=== PATIENT | male | born 1960 | race African-American/Black ===

== ENCOUNTER 2024-03-23 10:30 | Emergency (ER) | payer MEDICARE, MEDICAID, SELFPAY ==
[2024-03-23] VITALS (11 sets, daily range): BP systolic 88–122; BP diastolic 56–98; PULSE 86–118; RESP 15–24; TEMP 36.7; O2SAT 97–100
--- NOTE | ~2024-03-23 | CT_ITS ---
EXAMINATION: CT abdomen pelvis w con DATE: 03/23/2024 13:10 INDICATION: Right lower quadrant abdominal pain. Nausea and vomiting. TECHNIQUE: Computed tomography (CT) of the abdomen and pelvis was performed with 100 mL Omnipaque 350 intravenous contrast. Automated exposure control and iterative reconstruction technique were employe d. The dose-length product was 906.06 mGy-cm. COMPARISON: None. FINDINGS: The visualized portions of the lung bases demonstrate airspace and groundglass opacities. N o pleural effusion. The heart size is normal. No pericardial effusion. There is bilateral gynecomasti a. There is mild elevation of right hemidiaphragm. The liver, gallbladder, spleen, pancreas, and left adrenal gland are normal. There is a 2.2 cm mass in right adrenal gland measuring soft tissue attenu ation. There are cysts in the kidneys measuring up to 4.2 cm on the left. There is a right inguinal h ernia containing fat. There are brachytherapy seeds in the prostate, which is mildly enlarged. There are no dilated loops of bowel. The appendix is normal. There are no pathologically enlarged lymph nod es. There is a small sliding hiatal hernia. There is no free intraperitoneal fluid. There is severe t horacic spondylosis and moderate lumbar spondylosis. There is a 7 mm sclerotic lesion in left sacral ala. IMPRESSION: 1. Right inguinal hernia containing fat. 2. Airspace and groundglass opacities in the inferior lungs, consistent with atelectasis versus pneum onia. 3. 7 mm sclerotic lesion in left sacral ala, which may be benign or metastatic disease. This finding is too small for bone scan evaluation. Reviewed, dictated and finalized at location A. IMPRESSION: 1. Right inguinal hernia containing fat. 2. Airspace and groundglass opacities in the inferior lungs, consistent with at electasis versus pneumonia. 3. 7 mm sclerotic lesion in left sacral ala, which may be benign or metastatic disease. This finding is too small for bone scan evaluation.
--- NOTE | ~2024-03-23 | XR_ITS ---
EXAMINATION: XR chest 1V portable DATE: 03/23/2024 12:32 INDICATION: Nausea and vomiting. TECHNIQUE: A single frontal view of the chest was obtained. COMPARISON: None. FINDINGS: There is mild elevation of right hemidiaphragm. There is mild atelectasis in right lower terri ng zone. No pleural effusion or pneumothorax. The heart size is normal. IMPRESSION: 1. Mild elevation of right hemidiaphragm with mild atelectasis in right lower lung zone. Reviewed, dictated and finalized at location A. IMPRESSION: 1. Mild elevation of right hemidiaphragm with mild atelectasis in right lower l elena zone.
--- NOTE | 2024-03-23 11:01 | ED.NAVMDI ---
HPI - Nausea/Vomiting/Diarrhea General Chief complaint: Nausea/Vomiting/Diarrhea Stated complaint: n/v Time Seen by Provider: 03/23/24 10:32 Source: patient Mode of arrival: EMS Limitations: no limitations and language barrier History of Present Illness HPI Narrative: Patient is a 64-year-old male, with PMH of CVA with residual R sided deficits/aphasia, who presents to the ED via EMS with report of N/V. Patient is a resident of [facility]. He reports having persistent nausea and vomiting since night. He is able to keep down some fluids. Also complains of pain throughout his right lower abdomen. Denies diarrhea or constipation. Last bowel movement was today and normal. Denies rectal bleeding or melena. Denies fevers. Denies known sick contacts. Related Data Allergies Allergy/AdvReac Type Severity Reaction Status Date / Time lacosamide [From Vimpat] Allergy Unknown Verified 03/23/24 10:37 Review of Systems Review of Systems: CONSTITUTIONAL: Denies fever, chills, or sweats. CARDIOVASCULAR: Denies chest pain. RESPIRATORY: Denies dyspnea. GASTROINTESTINAL: See HPI. NEUROLOGIC: Denies headache, dizziness, numbness, or weakness. All systems reviewed & are unremarkable except as noted in HPI and below PMFSH Past Medical History Medical History (Updated 03/23/24 @ 19:05 by Brenda Jolly PA-C) CVA (cerebral vascular accident) Exam Narrative: GENERAL: chronically ill appearing, well-nourished, actively vomiting into emesis bag. HEAD: Normocephalic, atraumatic. RESPIRATORY: Airway patent, respirations nonlabored. Clear to auscultation bilaterally, no rales, rhonchi, wheezing. CARDIOVASCULAR: Tachycardic with regular rhythm without murmurs, rubs, or gallops. ABDOMINAL: Soft, mild tenderness in R lower abdomen, no rebound. Nondistended. Normoactive BS. MUSCULOSKELETAL: Right-sided weakness, chronic r/t previous CVA. No gross deformities. SKIN: Warm, dry, normal color. NEURO: A&O X3. Intermittent expressive aphasia. Follows commands. Cranial nerves II-XII grossly intact. PSYCHIATRIC: Appropriate mood and affect. Normal interaction. Course Vital Signs Vital signs: Vital Signs Temperature 98.0 F 03/23/24 10:28 Pulse Rate 109 H 03/23/24 10:28 Respiratory Rate 20 03/23/24 10:28 Blood Pressure 109/78 03/23/24 10:28 Pulse Oximetry 100 03/23/24 10:28 Oxygen Delivery Room Air 03/23/24 10:28 Temperature 98.0 F 03/23/24 10:28 Pulse Rate 95 03/23/24 15:16 Respiratory Rate 18 03/23/24 15:16 Blood Pressure 101/73 03/23/24 15:16 Pulse Oximetry 100 03/23/24 15:16 Oxygen Delivery Room Air 03/23/24 10:28 MDM - Nausea/Vomiting/Diarrhea MDM Narrative Medical decision making narrative: Patient presented to ED from local [facility] with several day hx of N/V. Per records, patient has hx of chronic N/V. New to facility. He was mildly tachycardic upon arrival. Actively vomiting. Fluids ongoing. Zofran given. Basic laboratory studies are fairly unremarkable. CBC with white blood cell count of 9.4. Minimal anemia noted at 11.3. No records to compare to. Patient denies any recent bleeding. No coffee-ground emesis. CMP w/ stable electrolytes. Creatinine 1.5. No records to compare to. Fluids ongoing. Lactic acid within normal limits at 1.5. Normal LFTs and lipase. Urinalysis with possible infection, 1+ leuk esterase, 21-50 white blood cells, though moderate squamous cells noted, no urine bacteria seen. Will send for cx and defer tx for now. Patient denies any urinary sx's. No previous cultures to compare to. Viral swabs were negative. Chest x-ray clear. CT scan of abdomen pelvis was obtained and showing inguinal hernia, no surgical abnormalities. Did show small sclerotic lesion in left sacrum, could be benign versus metastatic disease. No other metastatic findings on imaging. May need further imaging in the future. Discussed
[2024-03-23 11:11] LABS: Basophils Percent Auto 0.2 % (0.2-1.2); Eosinophils Absolute Auto 0.2 K/mm3 (0-0.3); Eosinophils Percent Auto 2.6 % (0-4.4); Hematocrit 38.8 % (42.0-52.0); Hemoglobin 11.3 g/dL (14.0-18.0); Immature Granulocyte Absolute 0.03 K/mm3 (0.00-0.031); Immature Granulocyte Percent A 0.3 % (0-0.5); Lymphocytes Absolute Auto 1.78 K/mm3 (0.9-3.2); Mean Corpuscular HGB Conc 29.1 g/dl (32-36); Mean Corpuscular Hemoglobin 21.9 pg (26-34); Mean Corpuscular Volume 75.3 fl (80-100); Mean Platelet Volume 11.9 fl (7.4-10.4); Monocytes Absolute Auto 0.6 K/mm3 (0.1-0.6); Monocytes Percent Auto 5.9 % (2.6-8.5); Neutrophils Absolute Auto 6.8 K/mm3 (1.3-6.7); Platelet Count Result 273 k/mm3 (150-375); Red Blood Count 5.15 M/mm3 (4.6-6.20); Red Cell Distribution Width 18.9 % (11.5-14.5); White Blood Count 9.4 K/mm3 (4.5-10.0)
[2024-03-23] MEDS: SODIUM CHLORIDE 0.9% IV 1,000 ML 999 ML IV CONT ×2 (11:24→12:35)
[2024-03-23] MEDS: ONDANSETRON INJ 4 MG/2 ML VIAL IV PUSH (11:24)
[2024-03-23 11:27] LABS: Lactic Acid Reflex 1.5 mmol/L (0.7-2.0)
[2024-03-23 11:30] LABS: Anisocytosis 1+; Hypochromasia 1+; Platelet Estimate Adequate (Adequate); Schistocytes None Seen
[2024-03-23 12:12] LABS: Appearance Urine Cloudy (Clear); Bacteria Urine None Seen /hpf; Bilirubin Urine 1+ (Negative); Blood Urine Negative (Negative); Color Urine Dark Yellow (Yellow); Glucose Urine UA Negative (Negative); Granular Casts Urine Present /lpf; Hyaline Casts Urine Present /lpf; Ketones Urine Trace mg/dL (Negative); Leukocyte Esterase Ur 1+ LEU/UL (Negative); Need Manual Microscopic Reviewed; Nitrate Urine Negative (Negative); Non Pathogenic Casts >20; Protein Urine 1+ mg/dL (Negative); RBC Urine 0-2 /hpf (0-2); Specific Grav Ur 1.022 (1.001-1.035); Squamous Epithelial Cell Urine Moderate /hpf (Few); WBC Urine 21-50 /hpf (0-3)
[2024-03-23 12:13] LABS: Add Urine Microscopic? YES
[2024-03-23 12:32] LABS: Influenza A QL RT-PCR Negative (Negative); Influenza B QL RT-PCR Negative (Negative); RSV RNA, RT-PCR Negative (Negative); SARS-CoV-2 RNA PCR Negative (Negative)
[2024-03-23 12:52] LABS: Alanine Aminotransferase 10 U/L (6-50); Albumin Level 3.6 g/dL (3.5-5.1); Alkaline Phosphatase 71 U/L (38-126); Anion Gap 9 mmol/L (4-12); Aspartate Amino Transferase 16 U/L (17-59); Bilirubin,Total 0.7 mg/dL (0.2-1.3); Blood Urea Nitrogen 39 mg/dL (9-20); Calcium 9.3 mg/dL (8.4-10.2); Carbon Dioxide 24 mmol/L (22-30); Chloride 110 mmol/L (98-107); Estimated CRCL calculation 41 ml/min; Estimated Glomerular Filt Rate 47; Glucose 110 mg/dL (65-110); Lipase 48 U/L (23-300); Potassium 3.7 mmol/L (3.4-5.0); Sodium 143 mmol/L (137-145)
== END 2024-03-23 15:39 ==
PROVIDERS: Emergency Provider Physician Assistant
DX: R11.2 Nausea with vomiting, unspecified (principal); I69.920 Aphasia following unspecified cerebrovascular disease; I69.951 Hemiplegia and hemiparesis following unspecified cerebrovascular disease affecting right dominant side; M89.9 Disorder of bone, unspecified; Z20.822 Contact with and (suspected) exposure to COVID-19; K40.90 Unilateral inguinal hernia, without obstruction or gangrene, not specified as recurrent; R91.8 Other nonspecific abnormal finding of lung field; R82.998 Other abnormal findings in urine
CPT/HCPCS: 36415; 71045; 74177; 80053; 81001; 83605; 83690; 85025; 87086; 87637; 96361; 96374; 99284; J2405; J7030; Q9967

== ENCOUNTER 2024-07-15 16:14 | Emergency (ER) | payer MEDICARE, MEDICAID, SELFPAY ==
--- NOTE | ~2024-07-15 | CT_ITS ---
CT cervical spine wo con Ordering provider: Clif Alfaro MD History: . Fall . Comparison: None. Technique: CT of the cervical spine was performed without contrast. Sagittal and coronal reformatted images were also obtained and reviewed. Automated exposure control and iterative reconstruction viri hnique were employed. The dose-length product was 407.87 mGy-cm. FINDINGS: VERTEBRAE: Kyphosis centered at the level of C5-C6. Minimal anterolisthesis at the level of C3-C4. Sm all bony fragment seen near to the left C1 lateral mass most likely old fracture or osteophyte. Evalu ation for tenderness in the area advised. Otherwise, No subluxation or acute fracture. The occipital condyles are intact. DISC SPACES: Narrowing of the disc C6-C7 and C7-T1. Multilevel facet joint disease. Multilevel uncove rtebral joint osteoarthritic changes. PARASPINOUS SOFT TISSUES: Bilateral carotid calcifications. Cerumen seen in the right and left external auditory canal. IMPRESSION: No definite acute osseous abnormality cervical spine. Kyphosis. Small chip of bone seen near to the C1 lateral mass on the left side most likely due to old fracture or osteophyte seen in the area. Clinical evaluation advised. Reviewed, dictated and finalized at location A. IMPRESSION: No definite acute osseous abnormality cervical spine. Kyphosis. Small chip of bone seen near to the C1 lateral mass on the left side most like ly due to old fracture or osteophyte seen in the area. Clinical evaluation advi sed.
--- NOTE | ~2024-07-15 | CT_ITS ---
EXAMINATION: CT brain wo con DATE: 07/15/2024 16:55 INDICATION: Fall . TECHNIQUE: Computed tomography (CT) of the head was performed with intravenous contrast. The mA was a djusted according to patient size. Iterative reconstruction technique was employed. The dose-length p roduct was 681.00 mGy-cm. COMPARISON: None. FINDINGS: No acute intracranial hemorrhage or extra-axial fluid collection. No hydrocephalus, mass, or herniation. No acute ischemic infarct. Unremarkable dural venous sinus attenuation. No acute osseous abnormality. Right frontotemporal craniotomy. Right frontal soft tissue swelling Right maxillary mucosal thickening, retention cyst/polyp in the left maxillary sinus, the remaining a erated spaces are clear. Bilateral frontal, left parietal, and left temporal encephalomalacia. Mild atrophy and chronic white matter change. Atherosclerotic intracranial calcification. IMPRESSION: No acute intracranial process. Reviewed, dictated and finalized at location K.
[2024-07-15 16:17] VITALS: BP 107/74; PULSE 68; RESP 18; TEMP 36.4; O2SAT 100
[2024-07-15 17:25] LABS: Glucose Point of Care 97 mg/dl (65-105)
--- NOTE | 2024-07-15 17:26 | ED.GENADULT ---
HPI - General Adult General Chief complaint: Fall Stated complaint: fall Time Seen by Provider: 07/15/24 16:19 History of Present Illness HPI narrative: 64-year-old male history of hemiparesis from right-sided CVA presenting after ground level fall. Patient was in his wheelchair and leaned over and fell striking his head on the ground. No loss of consciousness. No complaints at this time other than a headache. Patient is on aspirin. No persistent nausea or vomiting. Related Data Allergies Allergy/AdvReac Type Severity Reaction Status Date / Time lacosamide [From Vimpat] Allergy Unknown Verified 07/15/24 16:20 [facility] Past Medical History Medical History CVA (cerebral vascular accident) Exam Narrative: APPEARANCE: No apparent distress. Head: Hematoma over the right forehead EYES: EOMI, NOSE: Atraumatic NECK: No midline cervical tenderness, no neck pain RESPIRATORY: No increased rate of breathing clear to auscultation CARDIOVASCULAR: RRR, ABDOMINAL: Non-distended MUSCULOSKELETAl: No obvious deformities NEURO: Alert. Flaccid paralysis of the right arm leg and face. Left-sided neurologic exam is normal. PSYCHIATRIC: Normal affect Course Vital Signs Vital signs: Vital Signs Temperature 97.6 F 07/15/24 16:17 Pulse Rate 68 07/15/24 16:17 Respiratory Rate 18 07/15/24 16:17 Blood Pressure 107/74 07/15/24 16:17 Pulse Oximetry 100 07/15/24 16:17 Oxygen Delivery Room Air 07/15/24 16:17 Temperature 97.6 F 07/15/24 16:17 Pulse Rate 68 07/15/24 16:17 Respiratory Rate 18 07/15/24 16:17 Blood Pressure 107/74 07/15/24 16:17 Pulse Oximetry 100 07/15/24 16:17 Oxygen Delivery Room Air 07/15/24 16:17 Medical Decision Making [facility] Narrative Medical decision making narrative: -Course: This is a 64-year-old male [facility] after ground level fall. CT head negative. CT spine showed a possible loose body to the side of C1. Patient does not have any pain in that location. Patient's neurologic exam is unchanged with his chronic right-sided hemiparesis. Patient be discharged back to the nursing. -DDX includes but is not limited to: Intracranial hemorrhage, concussion, soft tissue injury -Co-morbidities complicating care: CVA with right-sided hemiparesis -Shared decision making / Disposition:discharged Vital Signs Vital Signs: Vital Signs Temperature 97.6 F 07/15/24 16:17 Pulse Rate 68 07/15/24 16:17 Respiratory Rate 18 07/15/24 16:17 Blood Pressure 107/74 07/15/24 16:17 Pulse Oximetry 100 07/15/24 16:17 Oxygen Delivery Room Air 07/15/24 16:17 Temperature 97.6 F 07/15/24 16:17 Pulse Rate 68 07/15/24 16:17 Respiratory Rate 18 07/15/24 16:17 Blood Pressure 107/74 07/15/24 16:17 Pulse Oximetry 100 07/15/24 16:17 Oxygen Delivery Room Air 07/15/24 16:17 Lab Data Labs: Lab Results 07/15/24 Range/Units 17:23 POC Capillary Glucose 97 (65-105) mg/dl Discharge Plan Discharge Clinical Impression: Fall Patient Disposition: Home, Self-Care Condition: Stable Instructions: Antibiotic Form, Concussion (ED), Fall Prevention (ED) Additional Instructions: Please follow-up with your primary care physician as needed. Please practice fall prevention techniques. Prescriptions: No Action omeprazole 10 mg capsule,delayed release(DR/EC) 10 mg PO DAILY Qty: 30 0RF ondansetron 4 mg tablet,disintegrating 4 mg PO Q8H PRN (Reason: nausea and vomiting) Qty: 15 0RF Follow-up/Referrals: UNKNOWN,DOCTOR [Primary Care Provider] -
--- NOTE | 2024-07-15 18:52 | PC.NURSE ---
Attempted to call report to [facility] with no answer to call.
[2024-07-15 18:55] VITALS: BP 102/70; PULSE 92; RESP 16; TEMP 36.3; O2SAT 99
== END 2024-07-15 20:25 | disposition home or self-care (01) ==
PROVIDERS: Emergency Provider Emergency Medicine
DX: S00.83XA Contusion of other part of head, initial encounter (principal); I69.951 Hemiplegia and hemiparesis following unspecified cerebrovascular disease affecting right dominant side; M40.202 Unspecified kyphosis, cervical region; W05.0XXA Fall from non-moving wheelchair, initial encounter
CPT/HCPCS: 70450; 72125; 82948; 99284

== ENCOUNTER 2024-07-27 13:34 | Outpatient (CLI) | payer MEDICARE, MEDICAID, SELFPAY ==
--- NOTE | ~2024-07-27 | XR_ITS ---
EXAMINATION: XR barium swallow modified DATE: 07/27/2024 14:59 INDICATION: Complication from a stroke. TECHNIQUE: The patient was given barium-containing material of multiple consistencies to swallow by t [facility] speech pathologist while I performed fluoroscopy. Fluoroscopy exposure time was 1.1 minutes. The n umber of fluoroscopy images saved to the PACS was 1. Dose-area product was 1.7 Gy-cm^2. FINDINGS: The oral stage, oropharyngeal stage, and cervical/esophageal stage of the swallow are normal. IMPRESSION: 1. Normal modified barium swallow. 2. Please refer to the speech therapy report for recommendations. Reviewed, dictated and finalized at location A.
--- NOTE | 2024-07-28 08:25 | REHSTMBS ---
Assessment and note entered by Sugar Kumar, FURNITURE BUILDER Modified Barium Swallow Evaluation Feeding Type Recommended Oral Food Consistency Regular, Level 7 Liquid Consistency Thin (0) ST Clinical Summary MODIFIED BARIUM SWALLOW STUDY Patient reports he has no difficulty swallowing but that he has a feeling that he is going to throw up when he eats. Other history is not obtained. Patient was viewed in the lateral position to the level of C5/C6. He was presented with thin liquid contrast medium per spoon, per cup, and per straw, pudding mixed with semi-solid contrast medium, and cracker pieces and fruit cocktail pieces both coated with the semi-solid mixture. He exhibited quick swallows with no evidence of penetration into the airway or aspiration throughout this evaluation and no significant pharyngeal residue. Results suggest patient's swallowing skills are within normal limits. He may remain on Regular Diet consistency and Thin liquids or diet may be adjusted to what is comfortable for him. Recommend general safe swallowing techniques including upright positioning, small bites and sips, swallow what is in the mouth before taking in more. He may require referral to further assess his risk for vomiting. No further Speech Therapy is indicated at this time. Thank you for this referral.
== END 2024-07-27 13:35 | disposition home or self-care (01) ==
LOC: ANHIMG 13:38
PROVIDERS: Visit Provider Nurse Practitioner Family
DX: G93.6 Cerebral edema (principal); I50.22 Chronic systolic (congestive) heart failure; F44.9 Dissociative and conversion disorder, unspecified; I10 Essential (primary) hypertension; E78.5 Hyperlipidemia, unspecified; I89.0 Lymphedema, not elsewhere classified; C61 Malignant neoplasm of prostate; F20.9 Schizophrenia, unspecified; E11.9 Type 2 diabetes mellitus without complications; I69.851 Hemiplegia and hemiparesis following other cerebrovascular disease affecting right dominant side; I67.9 Cerebrovascular disease, unspecified; F41.1 Generalized anxiety disorder
CPT/HCPCS: 92611

== ENCOUNTER 2024-08-08 16:34 | Emergency (ER) | payer MEDICARE, MEDICAID, SELFPAY ==
--- NOTE | ~2024-08-08 | CT_ITS ---
CT brain wo con Ordering provider: Gilbert Link MD History: 64 years Male with . Head injury . Comparison: July 15, 2024 Technique: CT of the head without contrast. Radiation reduction technique utilized. The dose-length product was 605.33 mGy-cm. FINDINGS: BRAIN PARENCHYMA AND CSF SPACES: Mild leukoaraiosis and diffuse cortical atrophy. Mild atheromatous d isease. Encephalomalacia versus vasogenic edema is seen in the frontal lobes most likely postoperativ e. Old infarct in the left internal capsule is noted. Old infarct in the left parietal area. No midli ne shift, mass effect or hemorrhage. The brain parenchyma and CSF spaces are otherwise normal. VISUALIZED PARANASAL SINUSES: Left maxillary sinus disease. MASTOIDS: Well aerated. BONES: Postoperative changes in the right frontal bone. The bones appear intact. SOFT TISSUES: Visualized nasopharynx is normal. Scalp hematoma in the right frontal lobe area. Super ficial soft tissues are normal. IMPRESSION: No acute intracranial findings. Right frontal postoperative changes. Reviewed, dictated and finalized at location A.
[2024-08-08 16:35] VITALS: BP 109/83; PULSE 83; RESP 18; TEMP 37.1; O2SAT 100
--- NOTE | 2024-08-08 18:34 | ED.FALL ---
HPI - Fall General Chief Complaint: Fall Stated Complaint: Fall, Head Injury Time Seen by Provider: 08/08/24 16:49 History of Present Illness HPI Narrative: 64-year-old male presenting to the emergency department for evaluation after having a fall from his wheelchair. Patient does have a prior history of his CVA resulting in right-sided deficit. Patient states he does not ambulate. Patient states he fell forward from his chair is unsure if he strike his head to the unsure review had a loss conscious. Patient denies any other pain or injury. Related Data Allergies Allergy/AdvReac Type Severity Reaction Status Date / Time lacosamide [From Vimpat] Allergy Unknown Verified 07/23/24 09:08 Review of Systems Review of Systems: All systems reviewed & are unremarkable except as noted in HPI and below PMFSH Past Medical History Medical History CVA (cerebral vascular accident) Exam Narrative: APPEARANCE: Well appearing, no pain, no distress, well-nourished. HEAD: normocephalic, atraumatic. EYES: PERRLA/EOMI, conjunctivae clear. NOSE: Normal no drainage EARS:TMS clear with good light reflex. THROAT: Pharynx clear, no exudate. NECK: Supple. No adenopathy, no masses. RESPIRATORY: Airway patent, respirations nonlabored. Clear to auscultation bilaterally, no rales, rhonchi, wheezing. CARDIOVASCULAR: Regular rate and rhythm without murmurs rubs or gallops. ABDOMINAL: Soft, nontender, nondistended, normal bowel sounds MUSCULOSKELETAL: Moves all extremities. Strength/ROM intact, No edema, No calf tenderness. NEURO: Right-sided deficit SKIN: Warm, dry. Normal Color Course Vital Signs Vital signs: Vital Signs Temperature 98.8 F 08/08/24 16:35 Pulse Rate 83 08/08/24 16:35 Respiratory Rate 18 08/08/24 16:35 Blood Pressure 109/83 08/08/24 16:35 Pulse Oximetry 100 08/08/24 16:35 Oxygen Delivery Room Air 08/08/24 16:35 Temperature 98.8 F 08/08/24 16:35 Pulse Rate 83 08/08/24 16:35 Respiratory Rate 18 08/08/24 16:35 Blood Pressure 109/83 08/08/24 16:35 Pulse Oximetry 100 08/08/24 16:35 Oxygen Delivery Room Air 08/08/24 16:35 MDM - Fall MDM Narrative Medical decision making narrative: 64-year-old male presenting to the emergency department for evaluation after having a fall from his wheelchair. Head CT was negative for acute fracture dislocation. Patient has no further pain or complaints. Patient is being discharged back to his care facility. Differential Diagnosis Differential diagnosis: Likely syncope, concussion with loss of consciousness and concussion without loss of consciousness Imaging Data Radiologist's impression: Impressions Head CT 08/08/24 18:22 IMPRESSION: No acute intracranial findings. Right frontal postoperative changes. Discharge Plan Discharge Clinical Impression: Head injury Patient Disposition: NH Care Home/Asst Living Condition: Stable Instructions: Antibiotic Form, Head Injury (ED) Additional Instructions: Have close follow-up with primary care physician. Prescriptions: No Action omeprazole 10 mg capsule,delayed release(DR/EC) 10 mg PO DAILY Qty: 30 0RF ondansetron 4 mg tablet,disintegrating 4 mg PO Q8H PRN (Reason: nausea and vomiting) Qty: 15 0RF Follow-up/Referrals: PHYSICIAN,REST ROOM ATTENDANT [Primary Care Provider] -
[2024-08-08 18:54] VITALS: BP 119/84; PULSE 70; RESP 19; O2SAT 100
== END 2024-08-08 19:10 ==
PROVIDERS: Emergency Provider Emergency Medicine
DX: S09.90XA Unspecified injury of head, initial encounter (principal); I69.951 Hemiplegia and hemiparesis following unspecified cerebrovascular disease affecting right dominant side; W05.0XXA Fall from non-moving wheelchair, initial encounter
CPT/HCPCS: 70450; 99284

== ENCOUNTER 2024-08-13 16:09 | Emergency (ER) | payer MEDICARE, MEDICAID, SELFPAY ==
[2024-08-13] VITALS (8 sets, daily range): BP systolic 112–128; BP diastolic 82–93; PULSE 72–84; RESP 15–20; TEMP 36.3; O2SAT 96–100
--- NOTE | ~2024-08-13 | XR_ITS ---
XR hand RT min 3V Ordering provider: Philip Estrada MD History: . injury. smashed 2nd 3rd fingers in wheelchair . Comparison: None. FINDINGS: BONES: No acute fracture or dislocation. JOINT SPACES: Osteoarthritic changes of the proximal and distal interphalangeal joints. SOFT TISSUES: Normal. IMPRESSION: No acute osseous abnormality right hand. Reviewed, dictated and finalized at location A.
--- NOTE | 2024-08-13 16:59 | ED.GENADULT ---
HPI - General Adult General Chief complaint: Unspecified Stated complaint: HAND INJURY Time Seen by Provider: 08/13/24 16:37 Source: patient Mode of arrival: EMS Limitations: no limitations History of Present Illness HPI narrative: 64-year-old with a history of CVA, wheelchair bound was brought in from care home with the complaints of injury to his right hand. Patient states that his fingers got caught in the wheel of the wheelchair. Complains of pain and swelling. Location: upper extremity (Right hand) Severity: moderate Quality: aching Exacerbating factors: none Associated symptoms: denies other symptoms Related Data Allergies Allergy/AdvReac Type Severity Reaction Status Date / Time lacosamide [From Vimpat] Allergy Unknown Verified 07/23/24 09:08 Review of Systems Review of Systems: All systems reviewed & are unremarkable except as noted in HPI and below Constitutional: Constitutional: Reports no additional constitutional complaints Eyes: Eyes: Reports no additional eye complaints ENT: Reports system reviewed and no additional complaints, except as documented Cardiovascular: Cardiovascular: Reports no additional cardiovascular complaints Respiratory: Respiratory: Reports no additional respiratory complaints Musculoskeletal: Musculoskeletal: Reports as per HPI PMFSH Past Medical History Medical History CVA (cerebral vascular accident) Exam Narrative: GENERAL: Well-appearing, well-nourished, and in no acute distress. HEAD: Normocephalic, atraumatic. EYES: PERRLA and EOMI. ENT: Nares clear, NECK: Supple. CHEST: Clear to auscultation. No respiratory distress. HEART: Regular rate and rhythm. No murmur heard. Normal peripheral pulses. EXTREMITIES: Normal range of motion. right hand 3 ,4 th finger swelling , no open wounds SKIN: Warm, dry, no rash. NEURO: old CVA on the the right . PSYCH: Normal mood and affect. Course Vital Signs Vital signs: Vital Signs Temperature 36.3 C L 08/13/24 16:11 Pulse Rate 74 08/13/24 16:11 Respiratory Rate 20 08/13/24 16:11 Blood Pressure 128/93 H 08/13/24 16:11 Pulse Oximetry 98 08/13/24 16:11 Oxygen Delivery Room Air 08/13/24 16:11 Temperature 36.3 C L 08/13/24 16:11 Pulse Rate 74 08/13/24 16:11 Respiratory Rate 20 08/13/24 16:11 Blood Pressure 128/93 H 08/13/24 16:11 Pulse Oximetry 98 08/13/24 16:11 Oxygen Delivery Room Air 08/13/24 16:11 Medical Decision Making Differential Diagnosis Differential Diagnosis: Fractures, dislocation Vital Signs Vital Signs: Vital Signs Temperature 36.3 C L 08/13/24 16:11 Pulse Rate 74 08/13/24 16:11 Respiratory Rate 20 08/13/24 16:11 Blood Pressure 128/93 H 08/13/24 16:11 Pulse Oximetry 98 08/13/24 16:11 Oxygen Delivery Room Air 08/13/24 16:11 Temperature 36.3 C L 08/13/24 16:11 Pulse Rate 74 08/13/24 16:11 Respiratory Rate 20 08/13/24 16:11 Blood Pressure 128/93 H 08/13/24 16:11 Pulse Oximetry 98 08/13/24 16:11 Oxygen Delivery Room Air 08/13/24 16:11 Imaging Data Radiologist's impression: ITS Impressions Hand X-Ray 08/13/24 17:16 IMPRESSION: No acute osseous abnormality right hand. Discharge Plan Discharge Clinical Impression: Contusion of finger of right hand Qualifiers: Encounter type: initial encounter Finger: middle finger Damage to nail status: without damage Qualified Code(s): S60.031A - Contusion of right middle finger without damage to nail, initial encounter Patient Disposition: [facility]/Asst Living Condition: Stable Instructions: Contusion in Adults (ED) Prescriptions: No Action omeprazole 10 mg capsule,delayed release(DR/EC) 10 mg PO DAILY Qty: 30 0RF ondansetron 4 mg tablet,disintegrating 4 mg PO Q8H PRN (Reason: nausea and vomiting) Qty: 15 0RF Follow-up/Referrals: PHYSICIAN,AUTOMOBILE OR TRUCK RENTAL DISPATCHER [Non-Staff] - Jake Berger MD [Physician] - Time of Disposition: 18:03
== END 2024-08-13 19:22 ==
PROVIDERS: Emergency Provider Family Medicine
DX: S60.031A Contusion of right middle finger without damage to nail, initial encounter (principal); Z86.73 Personal history of transient ischemic attack (TIA), and cerebral infarction without residual deficits; Z99.3 Dependence on wheelchair; W23.0XXA Caught, crushed, jammed, or pinched between moving objects, initial encounter
CPT/HCPCS: 73130; 99283

== ENCOUNTER 2025-01-06 17:36 | Inpatient (IN) | payer MEDICARE, MEDICAID, SELFPAY ==
--- NOTE | ~2025-01-06 | XR_ITS ---
EXAMINATION: XR catheter cholangiogram DATE: 01/11/2025 14:50 INDICATION: Acute cholecystitis. TECHNIQUE: I injected water-soluble contrast into the cholecystostomy tube and performed fluoroscopy of the abdomen. The fluoroscopy exposure time was 0.2 minutes. The number of images was 5. COMPARISON: CT abdomen and pelvis 01/06/2025 FINDINGS: The cholecystostomy tube is in expected position in the gallbladder. The cystic duct is occ luded. IMPRESSION: 1. Cholecystostomy tube in expected position in the gallbladder. 2. Occluded cystic duct. Reviewed, dictated and finalized at location A.
--- NOTE | ~2025-01-06 | US_ITS ---
EXAMINATION: US perc cholecystostomy w imag DATE: 01/07/2025 17:55 INDICATION: Acute cholecystitis TECHNIQUE: The procedure including the risks and benefits was discussed with the patient. Risks discu ssed included bleeding including hemorrhage and bile peritonitis. Oral and written consent were obtai zayra. The patient was confirmed to be receiving appropriate antibiotic coverage. The skin overlying t he liver and gallbladder was prepped and draped in usual sterile fashion. Anesthetic was administere d with 1% lidocaine subcutaneously. Conscious sedation was provided by the anesthesiology service. A n 18-gauge trochar needle was advanced into the gallbladder fundus via an intercostal, transhepatic a pproach utilizing continuous ultrasound guidance. The inner stylette was removed and a J-wire was adv anced into the gallbladder fundus with position confirmed by ultrasound. Utilizing Seldinger techniqu e the needle was removed and the wire and the tract serially dilated to [address] was then advanced over the wire into the gallbladder lumen with position confirmed by ultrasound. The metal stiffener was removed, the pigtail tip formed and locked and the wire removed. Bile was as pirated and sent for culture. The catheter was stitched to the skin with suture. And antibiotic appoi ntment and a sterile dressing were applied. There were no immediate complications. FINDINGS: The gallbladder is dilated with wall thickening and stones and sludge, consistent with acut e cholecystitis. Real-time ultrasound demonstrated the catheter within the gallbladder. 60 mL of ronald mar brown bile was aspirated with 20 mL sent to the lab for Gram stain and cultures. The catheter wa s attached to gravity drainage. Final images demonstrate gallbladder decompressed around the catheter with a residual anechoic fluid collection in the region of the gallbladder fundus which likely repre sents the extraluminal collection of fluid as seen on the prior CT and ultrasound imaging. IMPRESSION: 1. Successful ultrasound-guided cholecystostomy tube placement. 2. 20 mL bile was sent for aerobic, anaerobic, and fungal cultures. 3. The catheter will be managed by Dr. Rivera. A catheter cholangiogram may be performed not less than 48 hours after tube placement if clinically indicated to assess cystic duct patency. If cholecystect ghulam is not eventually performed and the infectious episode has resolved, the tube may be removed over a guidewire, preferably not less than 3 weeks after placement to allow time for a mature catheter tr act to form to prevent bile leakage and peritonitis. Reviewed, dictated and finalized at location A. IMPRESSION: 1. Successful ultrasound-guided cholecystostomy tube placement. 2. 20 mL bile was sent for aerobic, anaerobic, and fungal cultures. 3. The catheter will be managed by Dr. Rivera. A catheter cholangiogram may be pe rformed not less than 48 hours after tube placement if clinically indicated to assess cystic duct patency. If cholecystectomy is not eventually performed and the infectious episode has resolved, the tube may be removed over a guidewire, preferably not less than 3 weeks after placement to allow time for a mature ca theter tract to form to prevent bile leakage and peritonitis.
--- NOTE | ~2025-01-06 | CT_ITS ---
CLINICAL INDICATION: Generalized abdominal pain COMPARISON: 03/23/2024. TECHNIQUE: Multiple contiguous axial images of the abdomen and pelvis were performed following the ad ministration of with 100 mL Omnipaque-350 intravenous contrast The dose-length product (DLP) was 781.68 mGy-cm. Automated exposure control and iterative reconstruction technique were employed. FINDINGS/OBSERVATIONS: Visualized lower thorax: Bibasilar consolidation, right greater than left. The heart is enlarged, without pericardial effusion. Small hiatal hernia is present. Liver: The liver demonstrates homogeneous enhancement and is not enlarged measuring 18 cm in longitudinal di mension. Gallbladder and biliary system: The gallbladder is distended, with mural thickening and surrounding inflammatory change.. Pancreas: The pancreas enhances homogeneously without ductal dilatation. Spleen: The spleen enhances homogeneously and is not enlarged measuring 8 cm in longitudinal dimension. Kidneys: Multiple foci of fluid attenuation within the bilateral kidneys, left greater than right, unchanged f rom previous examination and statistically representing cysts. No hydronephrosis or renal calculi are present. Adrenal glands: Global enlargement of the bilateral adrenal glands, right greater than left. Gastrointestinal tract: Significant fecal stasis within the colon. Mural thickening within the distal stomach and first portion of the duodenum, likely reactive. Fecal stasis distends the rectum mural thickening and presacral inflammation. Vasculature: The inferior vena cava is slit like, consistent with significant hypovolemia. Calcified atherosclerotic disease within the abdominal aorta. Lymph nodes: No pathologically enlarged or morphologically suspicious lymph nodes within the retroperitoneum or at the root of the mesentery. Pelvic structures: The bladder is only minimally distended with markedly thickened huizar and surrounding inflammatory ch abi. Brachy therapy seeds within the prostate gland. Body wall and musculoskeletal: Fat-containing right inguinal hernia.. Sacralization of L5. Grade 1 anterolisthesis of L4 onto L5. Otherwise, no significant degenerative disease within the lumbosacral spine. IMPRESSION: Findings consistent with acute cholecystitis, as detailed above. Significant fecal stasis is also detected, markedly distending the rectum with mural thickening and p resacral inflammation. Bibasilar consolidation is also noted, right greater than left. Reviewed, dictated and finalized at location A. IMPRESSION: Findings consistent with acute cholecystitis, as detailed above. Significant fecal stasis is also detected, markedly distending the rectum with mural thickening and presacral inflammation. Bibasilar consolidation is also noted, right greater than left.
--- NOTE | ~2025-01-06 | XR_ITS ---
CHEST RADIOGRAPH CLINICAL HISTORY: WEAKNESS . COMPARISON: 03/23/2024 TECHNIQUE: Single portable view of the chest. FINDINGS The cardiomediastinal silhouette is obscured. Low lung volumes are detected bilaterally. Increased interstitial markings are identified bilaterally, findings suggesting mild pulmonary vascul ar congestion. IMPRESSION: Mild pulmonary vascular congestion without focal infiltrate Reviewed, dictated and finalized at location A.
--- NOTE | ~2025-01-06 | US_ITS ---
EXAM: ABDOMEN ULTRASOUND HISTORY: Acute cholecystitis on cross sectional imaging performed 90 minutes earlier. COMPARISON: CT examination of the abdomen and pelvis performed at 90 minutes earlier. FINDINGS: LIVER: The liver is increased in echogenicity and unremarkable in size measuring 18 cm in longitudina l dimension. GALLBLADDER: Lobulated sludge is identified within the distended gallbladder, consistent with the ye earance described on recent CT examination. Pericholecystic fluid is also present along with gallblad martine wall thickening measuring almost 4 mm. BILE DUCTS: Common bile duct measures 3.8mm. PANCREAS: Limited evaluation of the pancreas secondary to overlying bowel gas IMPRESSION: Acute cholecystitis, as detailed above, consistent with previous imaging performed through 90 minutes earlier. Reviewed, dictated and finalized at location A. IMPRESSION: Acute cholecystitis, as detailed above, consistent with previous imaging perfor med through 90 minutes earlier.
[2025-01-06 18:00] VITALS: BP 131/90; PULSE 99; RESP 16; TEMP 37.1; O2SAT 100
--- NOTE | 2025-01-06 18:30 | ECG_ITS ---
Test Date: 2025-01-06 19:10:40 Measurements Intervals Hooks Rate: 86 P: 33 IN: 152 QRS: 3 QRSD: 94 T: -79 QT: 350 QTc: 419 Interpretive Statements SINUS RHYTHM POSSIBLE INFERIOR MYOCARDIAL INFARCTION , OF INDETERMINATE AGE [30 ms Q WAVE IN II/aVF] MODERATE T-WAVE ABNORMALITY, CONSIDER LATERAL ISCHEMIA [-0.1+ mV T WAVE IN I/aVL/V5/V6] No previous ECG available for comparison Electronically Signed On 01-07-2025 09:17:54 CDT by Freddy Coffey M.D.
[2025-01-06 19:13] LABS: Influenza A QL RT-PCR Negative (Negative); Influenza B QL RT-PCR Negative (Negative); RSV RNA, RT-PCR Negative (Negative); SARS-CoV-2 RNA PCR Negative (Negative)
[2025-01-06 19:14] LABS: Basophils Percent Auto 0.2 % (0.2-1.2); Eosinophils Percent Auto 0.1 % (0-4.4); Hematocrit 49.1 % (42.0-52.0); Hemoglobin 14.5 g/dL (14.0-18.0); Immature Granulocyte Absolute 0.08 K/mm3 (0.00-0.031); Immature Granulocyte Percent A 0.5 % (0-0.5); Lymphocytes Absolute Auto 1.06 K/mm3 (0.9-3.2); Lymphocytes Percent Auto 7.1 % (18.3-44.2); Mean Corpuscular HGB Conc 29.5 g/dl (32-36); Mean Corpuscular Hemoglobin 21.9 pg (26-34); Mean Corpuscular Volume 74.3 fl (80-100); Mean Platelet Volume 10.8 fl (7.4-10.4); Monocytes Absolute Auto 1.5 K/mm3 (0.1-0.6); Monocytes Percent Auto 9.7 % (2.6-8.5); Neutrophils Absolute Auto 12.3 K/mm3 (1.3-6.7); Neutrophils Percent Auto 82.4 % (45.5-73.1); Platelet Count Result 143 k/mm3 (150-375); Red Blood Count 6.61 M/mm3 (4.6-6.20); Red Cell Distribution Width 18.8 % (11.5-14.5)
[2025-01-06 19:48] LABS: Band Neutrophils Percent 0 % (0-6); Platelet Estimate Slightly Decreased (Adequate); Schistocytes None Seen
[2025-01-06 19:49] LABS: Microcytosis 1+ (NORMAL)
--- NOTE | 2025-01-06 19:49 | ED.GENADULT ---
HPI - General Adult General Chief complaint: Weakness Stated complaint: weakness Time Seen by Provider: 01/06/25 19:08 History of Present Illness HPI narrative: A 64-year-old woman presents emergency department with chief complaint of abdominal pain patient [facility] after he has been having increasing weakness the patient reports that he is having discomfort throughout his abdomen facility reports he has been little bit more than normal in been weaker than normal patient reports that he has discomfort around his umbilicus Related Data Home Medications ?Medication ?Instructions ?Recorded ?Confirmed ?Last Taken ?Type B-complex with vitamin C 1 tablet PO DAILY 09/29/24 Unknown History acetaminophen 500 mg capsule 500 mg PO Q6H PRN 09/29/24 Unknown History amino acids-protein hydrolysate 15 ea PO 09/29/24 Unknown History gram-100 kcal/30 mL oral liquid (Pro-Stat Sugar Free) aspirin 81 mg tablet,delayed 81 mg PO DAILY 09/29/24 Unknown History release cholecalciferol (vitamin D3) 25 25 mcg PO DAILY 09/29/24 Unknown History mcg (1,000 unit) capsule docusate sodium 100 mg capsule 100 mg PO DAILY 09/29/24 Unknown History famotidine 20 mg tablet 20 mg PO DAILY 09/29/24 Unknown History ferrous sulfate 325 mg (65 mg 325 mg PO DAILY 09/29/24 Unknown History iron) tablet fluoxetine 20 mg capsule 20 mg PO DAILY 09/29/24 Unknown History fluvoxamine 50 mg tablet 50 mg PO QHS 09/29/24 Unknown History furosemide 20 mg tablet 20 mg PO QAM 09/29/24 Unknown History insulin glargine 100 unit/mL 10 unit subcut QPM 09/29/24 Unknown History subcutaneous solution levetiracetam 1,000 mg tablet 1,000 mg PO Q12H 09/29/24 Unknown History lorazepam 0.5 mg tablet 0.5 mg PO TID PRN 09/29/24 Unknown History naltrexone 50 mg tablet 50 mg PO DAILY 09/29/24 Unknown History rosuvastatin 10 mg tablet 10 mg PO DAILY 09/29/24 Unknown History sennosides 8.6 mg capsule (senna) 8.6 mg PO BID 09/29/24 Unknown History spironolactone 25 mg tablet 25 mg PO DAILY 09/29/24 Unknown History tamsulosin 0.4 mg capsule 0.4 mg PO DAILY 09/29/24 Unknown History Allergies Allergy/AdvReac Type Severity Reaction Status Date / Time lacosamide (From Vimpat) Allergy Unknown Verified 09/29/24 13:51 Review of Systems Review of Systems: A 10 system review of systems was completed on the patient and is negative except for what is stated in the HPI. Nursing and ancillary documentation was reviewed. [facility] Past Medical History Medical History CVA (cerebral vascular accident) Social History Social History Smoking status: Unknown if ever smoked Alcohol intake: never Substance use: never Substance use type: does not use Exam Narrative: GENERAL: Well-appearing, well-nourished, and in no acute distress. HEAD: Normocephalic, atraumatic. EYES: PERRLA and EOMI. ENT: Nares clear, no rhinorrhea or epistaxis. Mucous membranes moist. NECK: Supple. CHEST: Clear to auscultation. No respiratory distress. HEART: Regular rate and rhythm. No murmur heard. Normal peripheral pulses. ABDOMEN: Soft, mild periumbilical tenderness, nondistended, normal active bowel sounds. EXTREMITIES: Normal range of motion. No edema. SKIN: Warm, dry, no rash. NEURO: No focal deficits. Alert and oriented x3. PSYCH: Normal mood and affect. Course Vital Signs Vital signs: Vital Signs Temperature 37.1 C 01/06/25 18:00 Pulse Rate 99 01/06/25 18:00 Respiratory Rate 16 01/06/25 18:00 Blood Pressure 131/90 01/06/25 18:00 Pulse Oximetry 100 01/06/25 18:00 Oxygen Delivery Room Air 01/06/25 18:00 Temperature 37.1 C 01/06/25 18:00 Pulse Rate 83 01/06/25 21:46 Respiratory Rate 14 01/06/25 21:46 Blood Pressure 137/79 01/06/25 21:46 Pulse Oximetry 100 01/06/25 21:46 Oxygen Delivery Room Air 01/06/25 18:00 Medical Decision Making MDM Narrative Medical decision making narrative: Differential diagnosis includes intra-abdominal infection, cholecystitis, choledocholithiasis, bowel obstruction, UTI, pyelonephritis Laboratory studies were obtained on the patient which showed a white count of 15.0 electrolytes showed a bilirubin 2.0 AST of 134 ALT of 974 and COVID flu RSV were negative CT scan of the abdomen pelvis showed Findings consistent with acute cholecystitis, as detailed above. Significant fecal stasis is also detected, markedly distending the rectum with mural thickening and presacral inflammation. Bibasilar consolidation is also noted, right greater than left. The patient was started on Zosyn the case was discussed with Dr. Armenta who is on-call for surgery and the case was discussed with the hospitalist Vital Signs Vital Signs: Vital Signs Temperature 37.1 C 01/06/25 18:00 Pulse Rate 99 01/06/25 18:00 Respiratory Rate 16 01/06/25 18:00 Blood Pressure 131/90 01/06/25 18:00 Pulse Oximetry 100 01/06/25 18:00 Oxygen Delivery Room Air 01/06/25 18:00 Temperature 37.1 C 01/06/25 18:00 Pulse Rate 83 01/06/25 21:46 Respiratory Rate 14 01/06/25 21:46 Blood Pressure 137/79 01/06/25 21:46 Pulse Oximetry 100 01/06/25 21:46 Oxygen Delivery Room Air 01/06/25 18:00 Lab Data 01/06/25 19:07 01/06/25 20:16 Labs: Lab Results 01/06/25 01/06/25 01/06/25 Range/Units 18:33 19:07 19:52 WBC 15.0 H (4.5-10.0) K/mm3 RBC 6.61 H (4.6-6.20) M/mm3 Hgb 14.5 D (14.0-18.0) g/dL Hct 49.1 (42.0-52.0) % MCV 74.3 L (80-100) fl MCH 21.9 L (26-34) pg MCHC 29.5 L (32-36) g/dl RDW 18.8 H (11.5-14.5) % Plt Count 143 L (150-375) k/mm3 MPV 10.8 H (7.4-10.4) fl Immature Gran % (Auto) 0.5 (0-0.5) % Neut % (Auto) 82.4 H (45.5-73.1) % Lymph % (Auto) 7.1 L (18.3-44.2) % Stewart % (Auto) 9.7 H (2.6-8.5) % Eos % (Auto) 0.1 (0-4.4) % Baso % (Auto) 0.2 (0.2-1.2) % Lymph # (Auto) 1.06 (0.9-3.2) K/mm3 Stewart # (Auto) 1.5 H (0.1-0.6) K/mm3 Eos # (Auto) 0.0 (0-0.3) K/mm3 Baso # (Auto) 0.0 (0.0-0.1) K/mm3 Abs Immat Gran (auto) 0.08 H (0.00-0.031) K/mm3 Absolute Neuts (auto) 12.3 H (1.3-6.7) K/mm3 Absolute Nucleated RBC 0.000 (0.0-0.012) K/mm3 Band Neutrophils % 0 (0-6) % Nucleated RBC % 0.0 (0.0-0.2) % Platelet Estimate Slightly decreased (Adequate) % Immature Plt Fraction 4.0 (0.9-11.2) % Hypochromasia 1+ Anisocytosis 2+ Microcytosis 1+ (NORMAL) Schistocytes None seen Sodium Potassium Chloride Carbon Dioxide Anion Gap BUN Creatinine Estim Creat Clear Calc Estimated GFR Glucose Lactic Acid (0.7-2.0) mmol/L Calcium Magnesium (1.6-2.3) mg/dL Total Bilirubin AST ALT Alkaline Phosphatase Troponin I (0.000-0.034) ng/mL Total Protein Albumin Lipase (23-300) U/L Procalcitonin 1.4 ng/mL Urine Color (Yellow) Urine Appearance (Clear) Urine pH (5.0-9.0) Ur Specific [place] (1.001-1.035) Urine Protein (Negative) mg/dL Urine Glucose (UA) (Negative) mg/dL Urine Ketones (Negative) mg/dL Ur Blood (Man) (Negative) Urine Nitrate (Negative) Urine Bilirubin (Negative) Urine Urobilinogen (<2.0) mg/dL Add Ur Microanalysis Leukocyte Esterase Rfl (Negative) ANDRÉS/UL Urine RBC (0-2) /hpf Urine WBC (0-3) /hpf Ur Squamous Epith Cells (Few) /hpf Amorphous Sediment (None) Urine Bacteria /hpf Urine Casts Influenza A (RT-PCR) Negative (Negative) Influenza B (RT-PCR) Negative (Negative) RSV (RT-PCR) Negative (Negative) SARS-CoV-2 RNA (RT-PCR) Negative (Negative) 01/06/25 01/06/25 01/06/25 Range/Units 20:16 20:16 20:16 WBC (4.5-10.0) K/mm3 RBC (4.6-6.20) M/mm3 Hgb (14.0-18.0) g/dL Hct (42.0-52.0) % MCV (80-100) fl MCH (26-34) pg MCHC (32-36) g/dl RDW (11.5-14.5) % Plt Count (150-375) k/mm3 MPV (7.4-10.4) fl Immature Gran % (Auto) (0-0.5) % Neut % (Auto) (45.5-73.1) % Lymph % (Auto) (18.3-44.2) % Stewart % (Auto) (2.6-8.5) % Eos % (Auto) (0-4.4) % Baso % (Auto) (0.2-1.2) % Lymph # (Auto) (0.9-3.2) K/mm3 Stewart # (Auto) (0.1-0.6) K/mm3 Eos # (Auto) (0-0.3) K/mm3 Baso # (Auto) (0.0-0.1) K/mm3 Abs Immat Gran (auto) (0.00-0.031) K/mm3 Absolute Neuts (auto) (1.3-6.7) K/mm3 Absolute Nucleated RBC (0.0-0.012) K/mm3 Band Neutrophils % (0-6) % Nucleated RBC % (0.0-0.2) % Platelet Estimate (Adequate) % Immature Plt Fraction (0.9-11.2) % Hypochromasia Anisocytosis Microcytosis (NORMAL) Schistocytes Sodium Cancelled 136 L Potassium Cancelled 4.3 Chloride Cancelled Carbon Dioxide Anion Gap BUN Creatinine Estim Creat Clear Calc Estimated GFR Glucose Lactic Acid (0.7-2.0) mmol/L Calcium Magnesium (1.6-2.3) mg/dL Total Bilirubin AST ALT Alkaline Phosphatase Troponin I (0.000-0.034) ng/mL Total Protein Albumin Lipase (23-300) U/L Procalcitonin ng/mL Urine Color (Yellow) Urine Appearance (Clear) Urine pH (5.0-9.0) Ur Specific [place] (1.001-1.035) Urine Protein (Negative) mg/dL Urine Glucose (UA) (Negative) mg/dL Urine Ketones (Negative) mg/dL Ur Blood (Man) (Negative) Urine Nitrate (Negative) Urine Bilirubin (Negative) Urine Urobilinogen (<2.0) mg/dL Add Ur Microanalysis Leukocyte Esterase Rfl (Negative) ANDRÉS/UL Urine RBC (0-2) /hpf Urine WBC (0-3) /hpf Ur Squamous Epith Cells (Few) /hpf Amorphous Sediment (None) Urine Bacteria /hpf Urine Casts Influenza A (RT-PCR) (Negative) Influenza B (RT-PCR) (Negative) RSV (RT-PCR) (Negative) SARS-CoV-2 RNA (RT-PCR) (Negative) 01/06/25 01/06/25 01/06/25 Range/Units 20:16 20:16 20:16 WBC (4.5-10.0) K/mm3 RBC (4.6-6.20) M/mm3 Hgb (14.0-18.0) g/dL Hct (42.0-52.0) % MCV (80-100) fl MCH (26-34) pg MCHC (32-36) g/dl RDW (11.5-14.5) % Plt Count (150-375) k/mm3 MPV (7.4-10.4) fl Immature Gran % (Auto) (0-0.5) % Neut % (Auto) (45.5-73.1) % Lymph % (Auto) (18.3-44.2) % Stewart % (Auto) (2.6-8.5) % Eos % (Auto) (0-4.4) % Baso % (Auto) (0.2-1.2) % Lymph # (Auto) (0.9-3.2) K/mm3 Stewart # (Auto) (0.1-0.6) K/mm3 Eos # (Auto) (0-0.3) K/mm3 Baso # (Auto) (0.0-0.1) K/mm3 Abs Immat Gran (auto) (0.00-0.031) K/mm3 Absolute Neuts (auto) (1.3-6.7) K/mm3 Absolute Nucleated RBC (0.0-0.012) K/mm3 Band Neutrophils % (0-6) % Nucleated RBC % (0.0-0.2) % Platelet Estimate (Adequate) % Immature Plt Fraction (0.9-11.2) % Hypochromasia Anisocytosis Microcytosis (NORMAL) Schistocytes Sodium Potassium Chloride 101 Carbon Dioxide Cancelled 24 Anion Gap Cancelled 11 BUN Cancelled Creatinine Estim Creat Clear Calc Estimated GFR Glucose Lactic Acid (0.7-2.0) mmol/L Calcium Magnesium (1.6-2.3) mg/dL Total Bilirubin AST ALT Alkaline Phosphatase Troponin I (0.000-0.034) ng/mL Total Protein Albumin Lipase (23-300) U/L Procalcitonin ng/mL Urine Color (Yellow) Urine Appearance (Clear) Urine pH (5.0-9.0) Ur Specific [place] (1.001-1.035) Urine Protein (Negative) mg/dL Urine Glucose (UA) (Negative) mg/dL Urine Ketones (Negative) mg/dL Ur Blood (Man) (Negative) Urine Nitrate (Negative) Urine Bilirubin (Negative) Urine Urobilinogen (<2.0) mg/dL Add Ur Microanalysis Leukocyte Esterase Rfl (Negative) ANDRÉS/UL Urine RBC (0-2) /hpf Urine WBC (0-3) /hpf Ur Squamous Epith Cells (Few) /hpf Amorphous Sediment (None) Urine Bacteria /hpf Urine Casts Influenza A (RT-PCR) (Negative) Influenza B (RT-PCR) (Negative) RSV (RT-PCR) (Negative) SARS-CoV-2 RNA (RT-PCR) (Negative) 01/06/25 01/06/25 01/06/25 Range/Units 20:16 20:16 20:16 WBC (4.5-10.0) K/mm3 RBC (4.6-6.20) M/mm3 Hgb (14.0-18.0) g/dL Hct (42.0-52.0) % MCV (80-100) fl MCH (26-34) pg MCHC (32-36) g/dl RDW (11.5-14.5) % Plt Count (150-375) k/mm3 MPV (7.4-10.4) fl Immature Gran % (Auto) (0-0.5) % Neut % (Auto) (45.5-73.1) % Lymph % (Auto) (18.3-44.2) % Stewart % (Auto) (2.6-8.5) % Eos % (Auto) (0-4.4) % Baso % (Auto) (0.2-1.2) % Lymph # (Auto) (0.9-3.2) K/mm3 Stewart # (Auto) (0.1-0.6) K/mm3 Eos # (Auto) (0-0.3) K/mm3 Baso # (Auto) (0.0-0.1) K/mm3 Abs Immat Gran (auto) (0.00-0.031) K/mm3 Absolute Neuts (auto) (1.3-6.7) K/mm3 Absolute Nucleated RBC (0.0-0.012) K/mm3 Band Neutrophils % (0-6) % Nucleated RBC % (0.0-0.2) % Platelet Estimate (Adequate) % Immature Plt Fraction (0.9-11.2) % Hypochromasia Anisocytosis Microcytosis (NORMAL) Schistocytes Sodium Potassium Chloride Carbon Dioxide Anion Gap BUN 21 H D Creatinine Cancelled 1.01 Estim Creat Clear Calc Cancelled 57 Estimated GFR Cancelled Glucose Lactic Acid (0.7-2.0) mmol/L Calcium Magnesium (1.6-2.3) mg/dL Total Bilirubin AST ALT Alkaline Phosphatase Troponin I (0.000-0.034) ng/mL Total Protein Albumin Lipase (23-300) U/L Procalcitonin ng/mL Urine Color (Yellow) Urine Appearance (Clear) Urine pH (5.0-9.0) Ur Specific [place] (1.001-1.035) Urine Protein (Negative) mg/dL Urine Glucose (UA) (Negative) mg/dL Urine Ketones (Negative) mg/dL Ur Blood (Man) (Negative) Urine Nitrate (Negative) Urine Bilirubin (Negative) Urine Urobilinogen (<2.0) mg/dL Add Ur Microanalysis Leukocyte Esterase Rfl (Negative) ANDRÉS/UL Urine RBC (0-2) /hpf Urine WBC (0-3) /hpf Ur Squamous Epith Cells (Few) /hpf Amorphous Sediment (None) Urine Bacteria /hpf Urine Casts Influenza A (RT-PCR) (Negative) Influenza B (RT-PCR) (Negative) RSV (RT-PCR) (Negative) SARS-CoV-2 RNA (RT-PCR) (Negative) 01/06/25 01/06/25 01/06/25 Range/Units 20:16 20:16 20:16 WBC (4.5-10.0) K/mm3 RBC (4.6-6.20) M/mm3 Hgb (14.0-18.0) g/dL Hct (42.0-52.0) % MCV (80-100) fl MCH (26-34) pg MCHC (32-36) g/dl RDW (11.5-14.5) % Plt Count (150-375) k/mm3 MPV (7.4-10.4) fl Immature Gran % (Auto) (0-0.5) % Neut % (Auto) (45.5-73.1) % Lymph % (Auto) (18.3-44.2) % Stewart % (Auto) (2.6-8.5) % Eos % (Auto) (0-4.4) % Baso % (Auto) (0.2-1.2) % Lymph # (Auto) (0.9-3.2) K/mm3 Stewart # (Auto) (0.1-0.6) K/mm3 Eos # (Auto) (0-0.3) K/mm3 Baso # (Auto) (0.0-0.1) K/mm3 Abs Immat Gran (auto) (0.00-0.031) K/mm3 Absolute Neuts (auto) (1.3-6.7) K/mm3 Absolute Nucleated RBC (0.0-0.012) K/mm3 Band Neutrophils % (0-6) % Nucleated RBC % (0.0-0.2) % Platelet Estimate (Adequate) % Immature Plt Fraction (0.9-11.2) % Hypochromasia Anisocytosis Microcytosis (NORMAL) Schistocytes Sodium Potassium Chloride Carbon Dioxide Anion Gap BUN Creatinine Estim Creat Clear Calc Estimated GFR > 60 Glucose Cancelled 145 H Lactic Acid 1.3 (0.7-2.0) mmol/L Calcium Cancelled 10.5 H Magnesium 2.1 (1.6-2.3) mg/dL Total Bilirubin Cancelled AST ALT Alkaline Phosphatase Troponin I (0.000-0.034) ng/mL Total Protein Albumin Lipase (23-300) U/L Procalcitonin ng/mL Urine Color (Yellow) Urine Appearance (Clear) Urine pH (5.0-9.0) Ur Specific [place] (1.001-1.035) Urine Protein (Negative) mg/dL Urine Glucose (UA) (Negative) mg/dL Urine Ketones (Negative) mg/dL Ur Blood (Man) (Negative) Urine Nitrate (Negative) Urine Bilirubin (Negative) Urine Urobilinogen (<2.0) mg/dL Add Ur Microanalysis Leukocyte Esterase Rfl (Negative) ANDRÉS/UL Urine RBC (0-2) /hpf Urine WBC (0-3) /hpf Ur Squamous Epith Cells (Few) /hpf Amorphous Sediment (None) Urine Bacteria /hpf Urine Casts Influenza A (RT-PCR) (Negative) Influenza B (RT-PCR) (Negative) RSV (RT-PCR) (Negative) SARS-CoV-2 RNA (RT-PCR) (Negative) 01/06/25 01/06/25 01/06/25 Range/Units 20:16 20:16 20:16 WBC (4.5-10.0) K/mm3 RBC (4.6-6.20) M/mm3 Hgb (14.0-18.0) g/dL Hct (42.0-52.0) % MCV (80-100) fl MCH (26-34) pg MCHC (32-36) g/dl RDW (11.5-14.5) % Plt Count (150-375) k/mm3 MPV (7.4-10.4) fl Immature Gran % (Auto) (0-0.5) % Neut % (Auto) (45.5-73.1) % Lymph % (Auto) (18.3-44.2) % Stewart % (Auto) (2.6-8.5) % Eos % (Auto) (0-4.4) % Baso % (Auto) (0.2-1.2) % Lymph # (Auto) (0.9-3.2) K/mm3 Stewart # (Auto) (0.1-0.6) K/mm3 Eos # (Auto) (0-0.3) K/mm3 Baso # (Auto) (0.0-0.1) K/mm3 Abs Immat Gran (auto) (0.00-0.031) K/mm3 Absolute Neuts (auto) (1.3-6.7) K/mm3 Absolute Nucleated RBC (0.0-0.012) K/mm3 Band Neutrophils % (0-6) % Nucleated RBC % (0.0-0.2) % Platelet Estimate (Adequate) % Immature Plt Fraction (0.9-11.2) % Hypochromasia Anisocytosis Microcytosis (NORMAL) Schistocytes Sodium Potassium Chloride Carbon Dioxide Anion Gap BUN Creatinine Estim Creat Clear Calc Estimated GFR Glucose Lactic Acid (0.7-2.0) mmol/L Calcium Magnesium (1.6-2.3) mg/dL Total Bilirubin 2.0 H AST Cancelled 134 H ALT Cancelled 974 H Alkaline Phosphatase Cancelled Troponin I (0.000-0.034) ng/mL Total Protein Albumin Lipase (23-300) U/L Procalcitonin ng/mL Urine Color (Yellow) Urine Appearance (Clear) Urine pH (5.0-9.0) Ur Specific [place] (1.001-1.035) Urine Protein (Negative) mg/dL Urine Glucose (UA) (Negative) mg/dL Urine Ketones (Negative) mg/dL Ur Blood (Man) (Negative) Urine Nitrate (Negative) Urine Bilirubin (Negative) Urine Urobilinogen (<2.0) mg/dL Add Ur Microanalysis Leukocyte Esterase Rfl (Negative) ANDRÉS/UL Urine RBC (0-2) /hpf Urine WBC (0-3) /hpf Ur Squamous Epith Cells (Few) /hpf Amorphous Sediment (None) Urine Bacteria /hpf Urine Casts Influenza A (RT-PCR) (Negative) Influenza B (RT-PCR) (Negative) RSV (RT-PCR) (Negative) SARS-CoV-2 RNA (RT-PCR) (Negative) 01/06/25 01/06/2501/06/25 Range/Units 20:16 20:16 20:16 WBC (4.5-10.0) K/mm3 RBC (4.6-6.20) M/mm3 Hgb (14.0-18.0) g/dL Hct (42.0-52.0) % MCV (80-100) fl MCH (26-34) pg MCHC (32-36) g/dl RDW (11.5-14.5) % Plt Count (150-375) k/mm3 MPV (7.4-10.4) fl Immature Gran % (Auto) (0-0.5) % Neut % (Auto) (45.5-73.1) % Lymph % (Auto) (18.3-44.2) % Stewart % (Auto) (2.6-8.5) % Eos % (Auto) (0-4.4) % Baso % (Auto) (0.2-1.2) % Lymph # (Auto) (0.9-3.2) K/mm3 Stewart # (Auto) (0.1-0.6) K/mm3 Eos # (Auto) (0-0.3) K/mm3 Baso # (Auto) (0.0-0.1) K/mm3 Abs Immat Gran (auto) (0.00-0.031) K/mm3 Absolute Neuts (auto) (1.3-6.7) K/mm3 Absolute Nucleated RBC (0.0-0.012) K/mm3 Band Neutrophils % (0-6) % Nucleated RBC % (0.0-0.2) % Platelet Estimate (Adequate) % Immature Plt Fraction (0.9-11.2) % Hypochromasia Anisocytosis Microcytosis (NORMAL) Schistocytes Sodium Potassium Chloride Carbon Dioxide Anion Gap BUN Creatinine Estim Creat Clear Calc Estimated GFR Glucose Lactic Acid (0.7-2.0) mmol/L Calcium Magnesium (1.6-2.3) mg/dL Total Bilirubin AST ALT Alkaline Phosphatase 254 H Troponin I < 0.012 (0.000-0.034) ng/mL Total Protein Cancelled 8.0 Albumin Cancelled 4.0 Lipase 24 (23-300) U/L Procalcitonin ng/mL Urine Color (Yellow) Urine Appearance (Clear) Urine pH (5.0-9.0) Ur Specific [place] (1.001-1.035) Urine Protein (Negative) mg/dL Urine Glucose (UA) (Negative) mg/dL Urine Ketones (Negative) mg/dL Ur Blood (Man) (Negative) Urine Nitrate (Negative) Urine Bilirubin (Negative) Urine Urobilinogen (<2.0) mg/dL Add Ur Microanalysis Leukocyte Esterase Rfl (Negative) ANDRÉS/UL Urine RBC (0-2) /hpf Urine WBC (0-3) /hpf Ur Squamous Epith Cells (Few) /hpf Amorphous Sediment (None) Urine Bacteria /hpf Urine Casts Influenza A (RT-PCR) (Negative) Influenza B (RT-PCR) (Negative) RSV (RT-PCR) (Negative) SARS-CoV-2 RNA (RT-PCR) (Negative) 01/06/25 Range/Units 20:43 WBC (4.5-10.0) K/mm3 RBC (4.6-6.20) M/mm3 Hgb (14.0-18.0) g/dL Hct (42.0-52.0) % MCV (80-100) fl MCH (26-34) pg MCHC (32-36) g/dl RDW (11.5-14.5) % Plt Count (150-375) k/mm3 MPV (7.4-10.4) fl Immature Gran % (Auto) (0-0.5) % Neut % (Auto) (45.5-73.1) % Lymph % (Auto) (18.3-44.2) % Stewart % (Auto) (2.6-8.5) % Eos % (Auto) (0-4.4) % Baso % (Auto) (0.2-1.2) % Lymph # (Auto) (0.9-3.2) K/mm3 Stewart # (Auto) (0.1-0.6) K/mm3 Eos # (Auto) (0-0.3) K/mm3 Baso # (Auto) (0.0-0.1) K/mm3 Abs Immat Gran (auto) (0.00-0.031) K/mm3 Absolute Neuts (auto) (1.3-6.7) K/mm3 Absolute Nucleated RBC (0.0-0.012) K/mm3 Band Neutrophils % (0-6) % Nucleated RBC % (0.0-0.2) % Platelet Estimate (Adequate) % Immature Plt Fraction (0.9-11.2) % Hypochromasia Anisocytosis Microcytosis (NORMAL) Schistocytes Sodium Potassium Chloride Carbon Dioxide Anion Gap BUN Creatinine Estim Creat Clear Calc Estimated GFR Glucose Lactic Acid (0.7-2.0) mmol/L Calcium Magnesium (1.6-2.3) mg/dL Total Bilirubin AST ALT Alkaline Phosphatase Troponin I (0.000-0.034) ng/mL Total Protein Albumin Lipase (23-300) U/L Procalcitonin ng/mL Urine Color Dark yellow (Yellow) Urine Appearance Cloudy H (Clear) Urine pH 5.0 (5.0-9.0) Ur Specific [place] 1.026 (1.001-1.035) Urine Protein 2+ H (Negative) mg/dL Urine Glucose (UA) Negative (Negative) mg/dL Urine Ketones Trace H (Negative) mg/dL Ur Blood (Man) Negative (Negative) Urine Nitrate Negative (Negative) Urine Bilirubin 2+ H (Negative) Urine Urobilinogen 1.0 (<2.0) mg/dL Add Ur Microanalysis Reviewed Leukocyte Esterase Rfl Negative (Negative) ANDRÉS/UL Urine RBC 3-5 H (0-2) /hpf Urine WBC 0-5 (0-3) /hpf Ur Squamous Epith Cells None seen (Few) /hpf Amorphous Sediment Few H (None) Urine Bacteria None seen /hpf Urine Casts 6-10 Influenza A (RT-PCR) (Negative) Influenza B (RT-PCR) (Negative) RSV (RT-PCR) (Negative) SARS-CoV-2 RNA (RT-PCR) (Negative) Discharge Plan Discharge Clinical Impression: Acute cholecystitis Patient Disposition: Still a Patient Condition: Stable Patient Language: Tajik Prescriptions: No Action lorazepam 0.5 mg tablet 0.5 mg PO TID PRN insulin glargine 100 unit/mL solution 10 unit subcut QPM aspirin 81 mg tablet,delayed release (DR/EC) 81 mg PO DAILY B-complex with vitamin C Tablet 1 tablet PO DAILY famotidine 20 mg tablet 20 mg PO DAILY ferrous sulfate 325 mg (65 mg iron) tablet 325 mg PO DAILY fluoxetine 20 mg capsule 20 mg PO DAILY furosemide 20 mg tablet 20 mg PO QAM naltrexone 50 mg tablet 50 mg PO DAILY rosuvastatin 10 mg tablet 10 mg PO DAILY spironolactone 25 mg tablet 25 mg PO DAILY tamsulosin 0.4 mg capsule 0.4 mg PO DAILY cholecalciferol (vitamin D3) 25 mcg (1,000 unit) capsule 25 mcg PO DAILY docusate sodium 100 mg capsule 100 mg PO DAILY levetiracetam 1,000 mg tablet 1,000 mg PO Q12H Pro-Stat Sugar Free 15-100 gram-kcal/30 mL liquid PO senna 8.6 mg capsule 8.6 mg PO BID fluvoxamine 50 mg tablet 50 mg PO QHS acetaminophen 500 mg capsule 500 mg PO Q6H PRN omeprazole 10 mg capsule,delayed release(DR/EC) 10 mg PO DAILY Qty: 30 0RF ondansetron 4 mg tablet,disintegrating 4 mg PO Q8H PRN (Reason: nausea and vomiting) Qty: 15 0RF Follow-up/Referrals: UNKNOWN,DOCTOR [Primary Care Provider] - Time of Disposition: 23:05
[2025-01-06 19:50] LABS: Hypochromasia 1+
[2025-01-06 19:51] LABS: Anisocytosis 2+
[2025-01-06 20:34] LABS: Alkaline Phosphatase 254 U/L (38-126); Anion Gap 11 mmol/L (4-12); Aspartate Amino Transferase 134 U/L (17-59); Blood Urea Nitrogen 21 mg/dL (9-20); Calcium 10.5 mg/dL (8.4-10.2); Carbon Dioxide 24 mmol/L (22-30); Chloride 101 mmol/L (98-107); Estimated CRCL calculation 57 ml/min; Estimated Glomerular Filt Rate > 60; Glucose 145 mg/dL (65-110); Lactic Acid Reflex 1.3 mmol/L (0.7-2.0); Lipase 24 U/L (23-300); Magnesium 2.1 mg/dL (1.6-2.3); Potassium 4.3 mmol/L (3.4-5.0); Sodium 136 mmol/L (137-145)
[2025-01-06 20:48] LABS: Troponin I < 0.012 ng/mL (0.000-0.034)
[2025-01-06 20:49] LABS: Alanine Aminotransferase 974 U/L (6-50)
[2025-01-06] MEDS: SODIUM CHLORIDE 0.9% IV 1,000 ML 999 ML IV CONT (21:02)
[2025-01-06 21:05] LABS: Add Urine Microscopic? YES; Appearance Urine Cloudy (Clear); Bacteria Urine None Seen /hpf; Bilirubin Urine 2+ (Negative); Blood Urine Negative (Negative); Color Urine Dark Yellow (Yellow); Glucose Urine UA Negative (Negative); Ketones Urine Trace mg/dL (Negative); Leukocyte Esterase Ur Negative LEU/UL (Negative); Need Manual Microscopic Reviewed; Nitrate Urine Negative (Negative); Protein Urine 2+ mg/dL (Negative); Specific Grav Ur 1.026 (1.001-1.035); Squamous Epithelial Cell Urine None Seen /hpf (Few); WBC Urine 0-5 /hpf (0-3)
[2025-01-06 21:09] LABS: Amorphous Sediment Urine Few
[2025-01-06 21:46] VITALS: BP 137/79; PULSE 83; RESP 14; O2SAT 100
[2025-01-06 21:46] LABS: Procalcitonin 1.4 ng/mL
[2025-01-06] MEDS: PIPERACILLN/TAZ 3.375GM/NS50ML 3.375 GM/50 ML BAG IVPB (23:09)
[2025-01-07 01:05] VITALS: BP 151/95; PULSE 81; RESP 14; O2SAT 99
--- NOTE | 2025-01-07 02:01 | ADMGEN ---
This patient, Bridger Suarez, was admitted to Medical Room 344-01. Patient/family oriented to hospital policies and general routines including ID bracelet, bed and alarms, visiting hours, pain management, procedures, bathroom and other care routines, personal items, smoking policy, room service/diet, and visiting hours. Information on how to activate the Rapid Response Team has been discussed. Patient/Family are encouraged to report perceived risks to care and to ask questions if they do not understand what they are told or what they should do.
[2025-01-07 02:06] VITALS: BP 145/88; PULSE 71; RESP 18; TEMP 36.7; O2SAT 100; BMI 24.5
--- NOTE | 2025-01-07 04:45 | P.HP_ITS ---
H&P: HPI History of Present Illness Date/Time: 01/07/25 05:30 Chief Complaint: Abdominal pain and weakness. Narrative: This is a 64-year-old male with history of stroke, insulin-dependent diabetes, congestive heart failure, hypertension, benign prostatic hyperplasia, gastroesophageal reflux disease, and depression who presented to the emergency department via EMS from [facility] for evaluation of weakness and abdominal pain. He is a poor historian and some of the following is obtained via a review of his electronic medical records. He complains of vague discomfort in the mid abdomen which seems to be most pronounced in the right upper quadrant on exam. He has a difficult time describing the pain. He does not know when it started. He has not noticed any aggravating or alleviating factors. He denies fever, chills, sweats, vomiting, chest pain, and shortness breath. He does not think he has difficulty swallowing and denies concerns for aspiration. He has not had a cough. In the ED: Vital signs were stable on arrival. Labs are significant for WBC count of 15.0, platelet 143, sodium 136, BUN 21, creatinine 1.01, lactic acid 1.3, total bilirubin 2.0, AST 134, ALT and 174, alkaline phosphatase 254. CT of the abdomen pelvis showed findings consistent with acute cholecystitis and significant fecal stasis with markedly distended rectum with mural thickening and presacral inflammation. Bibasilar consolidation also noted. Review of Systems Review of Systems: Unable to assess accurately as he is a poor historian. [facility] Past Medical History Medical History (Updated 01/07/25 @ 04:49 by Amarilis Foster PA-C) Prostate cancer Schizophrenia Depression Anemia Benign prostatic hyperplasia Gastroesophageal reflux disease Hypertension Heart failure of unknown type Cerebrovascular accident Family History Family History Other Unknown family medical history Social History Social History (Updated 01/07/25 @ 04:47 by Amarilis Foster PA-C) Social History: Surrogate medical decision maker: Jose Suarez, brother. Code status: Full code. Smoking status: Never smoker Alcohol intake: never Substance use: never Substance use type: does not use Do You Feel Safe in your Home?: Yes Lack of Transportation: No Lack of Food: Never True Current Housing: I Have Housing Concerned About Future Housing: No Difficulty Paying Gas/Electric Bills: No Difficulty Paying for Meds: No Currently Unemployed: No Education: High School Diploma/GED Difficulty w/ Childcare or Family Care: No Spiritual care concerns: No Meds Home Medications and Allergies Home Medications ?Medication ?Instructions ?Recorded ?Confirmed ?Type ondansetron 4 mg disintegrating 4 mg PO Q8H PRN nausea and 03/23/24 01/07/25 Rx tablet vomiting #15 tabs B-complex with vitamin C 1 tablet PO DAILY 09/29/24 01/07/25 History acetaminophen 500 mg capsule 500 mg PO Q6H PRN fever or pain 09/29/24 01/07/25 History amino acids-protein hydrolysate 15 See Rx Instructions PO BID 09/29/24 01/07/25 History gram-100 kcal/30 mL oral liquid (Pro-Stat Sugar Free) aspirin 81 mg tablet,delayed 81 mg PO DAILY 09/29/24 01/07/25 History release cholecalciferol (vitamin D3) 25 25 mcg PO DAILY 09/29/24 01/07/25 History mcg (1,000 unit) capsule docusate sodium 100 mg capsule 100 mg PO DAILY 09/29/24 01/07/25 History famotidine 20 mg tablet 20 mg PO DAILY 09/29/24 01/07/25 History ferrous sulfate 325 mg (65 mg 325 mg PO DAILY 09/29/24 01/07/25 History iron) tablet fluoxetine 20 mg capsule 20 mg PO DAILY 09/29/24 01/07/25 History fluvoxamine 50 mg tablet 50 mg PO QHS 09/29/24 01/07/25 History furosemide 20 mg tablet 20 mg PO QAM 09/29/24 01/07/25 History insulin glargine 100 unit/mL 10 unit subcut QPM 09/29/24 01/07/25 History subcutaneous solution levetiracetam 1,000 mg tablet 1,000 mg PO Q12H 09/29/24 01/07/25 History lorazepam 0.5 mg tablet 0.5 mg PO Q12H 09/29/24 01/07/25 History naltrexone 50 mg tablet 50 mg PO DAILY 09/29/24 01/07/25 History sennosides 8.6 mg capsule (senna) 8.6 mg PO BID 09/29/24 01/07/25 History spironolactone 25 mg tablet 25 mg PO DAILY 09/29/24 01/07/25 History tamsulosin 0.4 mg capsule 0.4 mg PO DAILY 09/29/24 01/07/25 History Biotene Dry Mouth Oral spray See Rx Instructions .Route Q2H PRN 01/07/25 01/07/25 History dry mouth benzocaine 6 mg-menthol 10 mg 1 keith mucous membrane Q4H PRN sore 01/07/25 01/07/25 History lozenges (Chloraseptic Sore Throat) throat benzonatate 100 mg capsule 100 mg PO TID 01/07/25 01/07/25 History goodsense gel See Rx Instructions .Route Q6H PRN 01/07/25 01/07/25 History pain hydroxyzine HCl 25 mg tablet 25 mg PO Q12H PRN anxiety 01/07/25 01/07/25 History metformin 750 mg tablet,extended 750 mg PO DAILY 01/07/25 01/07/25 History release 24 hr zinc oxide 10 % topical cream 1 applic topical TID PRN skin 01/07/25 01/07/25 History (Secura Protective (zinc oxide)) irritation Allergies Allergy/AdvReac Type Severity Reaction Status Date / Time lacosamide (From Vimpat) Allergy Unknown Verified 09/29/24 13:51 Vital Signs Vital Signs - 24 hr 01/06/25 18:00 01/06/25 21:46 01/07/25 01:05 Temperature 98.8 F Pulse Rate 99 83 81 Respiratory Rate 16 14 14 Blood Pressure 131/90 137/79 151/95 H Pulse Oximetry 100 100 99 Oxygen Delivery Room Air 01/07/25 02:06 Temperature 98.0 F Pulse Rate 71 Respiratory Rate 18 Blood Pressure 145/88 H Pulse Oximetry 100 Oxygen Delivery Exam Narrative: General: Mildly ill-appearing male in the semi-Serrano position. Weight: 68.8 kg. BMI: 24.5. HEENT: PERRL, EOMI. Sclera anicteric. Dry mucous membranes. Oropharynx not visualized. Neck: Supple. Respiratory: Respirations are nonlabored. Lung sounds are a bit coarse but are otherwise clear to auscultation. Cardiovascular: Regular rate and rhythm with S1-S2. Gastrointestinal: Abdomen is soft and nondistended with positive bowel sounds. He is significantly tender to palpation the right upper quadrant with mild guarding but no rebound tenderness. Skin: Warm and dry. Extremities: No cyanosis, clubbing, or significant edema. Radial and pedal pulses intact. Neurological: Alert. Cranial nerves 2-12 are grossly intact. Right-sided hemiplegia. Psychiatric: Cooperative with appropriate mood. H&P: Results Labs Labs: Short CBC 01/06/25 Range/Units 19:07 WBC 15.0 H (4.5-10.0) K/mm3 Hgb 14.5 D (14.0-18.0) g/dL Hct 49.1 (42.0-52.0) % Plt Count 143 L (150-375) k/mm3 BMP 01/06/25 01/06/25 01/06/25 20:16 20:16 20:16 Sodium Cancelled 136 L Potassium Cancelled 4.3 Chloride Cancelled Carbon Dioxide BUN Creatinine Glucose Calcium 01/06/25 01/06/25 01/06/25 20:16 20:16 20:16 Sodium Potassium Chloride 101 Carbon Dioxide Cancelled 24 BUN Cancelled 21 H D Creatinine Cancelled Glucose Calcium 01/06/25 01/06/25 01/06/25 20:16 20:16 20:16 Sodium Potassium Chloride Carbon Dioxide BUN Creatinine 1.01 Glucose Cancelled 145 H Calcium Cancelled 10.5 H Cardiac Enzymes 01/06/25 Range/Units 20:16 Troponin I < 0.012 (0.000-0.034) ng/mL Liver Function 01/06/25 01/06/25 01/06/25 Range/Units 20:16 20:16 20:16 Total Bilirubin Cancelled 2.0 H AST Cancelled 134 H ALT Cancelled Alkaline Phosphatase Albumin 01/06/25 01/06/25 01/06/25 Range/Units 20:16 20:16 20:16 Total Bilirubin AST ALT 974 H Alkaline Phosphatase Cancelled 254 H Albumin Cancelled 4.0 Urine 01/06/25 Range/Units 20:43 Urine Color Dark yellow (Yellow) Urine Appearance Cloudy H (Clear) Urine pH 5.0 (5.0-9.0) Ur Specific [place] 1.026 (1.001-1.035) Urine Protein 2+ H (Negative) mg/dL Urine Glucose (UA) Negative (Negative) mg/dL Impressions Chest X-Ray 01/06/25 19:21 IMPRESSION: Mild pulmonary vascular congestion without focal infiltrate Abdomen/Pelvis CT 01/06/25 22:03 IMPRESSION: Findings consistent with acute cholecystitis, as detailed above. Significant fecal stasis is also detected, markedly distending the rectum with mural thickening and presacral inflammation. Bibasilar consolidation is also noted, right greater than left. Abdomen Ultrasound 01/06/25 23:14 IMPRESSION: Acute cholecystitis, as detailed above, consistent with previous imaging performed through 90 minutes earlier. Assessment and Plan Assessment and plan (1) Acute cholecystitis: Code(s): K81.0 - Acute cholecystitis Status: Acute (2) Transaminitis: Code(s): R74.01 - Elevation of levels of liver transaminase levels Status: Acute (3) Constipation: Code(s): K59.00 - Constipation, unspecified Status: Acute (4) Lung consolidation: Code(s): J18.1 - Lobar pneumonia, unspecified organism Status: Acute (5) Heart failure of unknown type: Code(s): I50.9 - Heart failure, unspecified Status: Acute (6) Hypertension: Code(s): I10 - Essential (primary) hypertension Status: Acute (7) Psychiatric illness: Code(s): F99 - Mental disorder, not otherwise specified Status: Acute Plan The patient presented to the emergency department with complaints of abdominal pain and weakness as detailed in HPI. Labs, imaging, EKG, and all reports were personally reviewed. CT scan shows findings of acute cholecystitis and he has been started on piperacillin/tazobactam. He will be NPO for possible cholecystectomy or cholecystostomy tube placement. Surgery has been consulted for recommendations. Analgesics and antiemetics are available as needed. Transaminitis is secondary to above; no ductal dilatation was noted on imaging. He has significant constipation an enema has been ordered. CT scan also shows bibasilar consolidation, right greater than left. Swallow study would be prudent to evaluate for possible aspiration as a cause. Will hold on that for now given acute problems and the fact that he is currently NPO. He appears euvolemic on exam; avoid over-hydration. Blood pressures were reviewed and are stable. He reports his chronic conditions are well controlled on medication. His home medications will be reviewed and resumed as appropriate. Findings and treatment plan were discussed with the patient. Questions were solicited and answered to satisfaction. The patient's medical management will be taken over by the hospitalist team in a.m. Quality VTE Prophylaxis VTE prophylaxis: mechanical ordered If No VTE Prophylaxis Answer both mechanical and pharmacologic: Reason no pharmacologic proph: medical contraindication (will likely have a procedure today) The patient has been admitted under observation status. Hospitalist [facility] Advance Care Plan I have confirmed that the patient's Advanced Care Plan is present, code status is documented, or surrogate decision maker is listed in patient medical record.: Yes Medication Reconciliation I have utilized all available resources to obtain, update and review the patients current medications (includes all prescriptions, OTC, herbals, cannabis, and nutritional supplements).: Yes
[2025-01-07] MEDS: SODIUM CHLORIDE 0.9% IV 1,000 ML 125 ML IV CONT (05:07)
[2025-01-07] MEDS: PIPERACILLN/TAZ 3.375GM/NS50ML 3.375 GM/50 ML BAG IVPB ×3 (05:07→17:06)
[2025-01-07 05:46] VITALS: BP 151/88; PULSE 69; RESP 18; TEMP 37.1; O2SAT 98
[2025-01-07 06:23] LABS: Hematocrit 41.9 % (42.0-52.0); Hemoglobin 12.8 g/dL (14.0-18.0); Mean Corpuscular HGB Conc 30.5 g/dl (32-36); Mean Corpuscular Hemoglobin 22.2 pg (26-34); Mean Corpuscular Volume 72.6 fl (80-100); Mean Platelet Volume 10.9 fl (7.4-10.4); Platelet Count Result 210 k/mm3 (150-375); Red Blood Count 5.77 M/mm3 (4.6-6.20); Red Cell Distribution Width 17.9 % (11.5-14.5); White Blood Count 11.9 K/mm3 (4.5-10.0)
[2025-01-07 07:06] LABS: Alanine Aminotransferase 747 U/L (6-50); Albumin Level 3.6 g/dL (3.5-5.1); Alkaline Phosphatase 213 U/L (38-126); Anion Gap 7 mmol/L (4-12); Aspartate Amino Transferase 104 U/L (17-59); Bilirubin,Total 1.9 mg/dL (0.2-1.3); Blood Urea Nitrogen 21 mg/dL (9-20); Calcium 9.9 mg/dL (8.4-10.2); Carbon Dioxide 27 mmol/L (22-30); Chloride 103 mmol/L (98-107); Estimated CRCL calculation 61 ml/min; Estimated Glomerular Filt Rate > 60; Glucose 113 mg/dL (65-110); Potassium 4.1 mmol/L (3.4-5.0); Sodium 137 mmol/L (137-145)
--- NOTE | 2025-01-07 07:38 | P.PNIM_ITS ---
Progress Note: A&P Assessment and Plan (1) Acute cholecystitis: Code(s): K81.0 - Acute cholecystitis Status: Acute Assessment and Plan: Abdomen/pelvis CT: The gallbladder is distended, with mural thickening and surrounding inflammatory change. Consistent with cholecystitis. Not meeting sepsis criteria - IV pain management - IV fluid resuscitation - Antibiotics: Zosyn 3.375 mg every 6 hours started on 01/07 - Diet:NPO for possible procedure - Monitor vital signs, I and O's, check stool output, neuro status and patient is a fall risk - Monitor serum electrolytes and CBC - Monitor lactic acid - Consult general surgery for further evaluation, appreciate assistance and recommendation Plan for US perc cholecystostomy tube placement (2) Transaminitis: Code(s): R74.01 - Elevation of levels of liver transaminase levels Status: Acute Assessment and Plan: LFTs elevated on admission: Tot bili 2, AST 134, ALT 974, alk phos 254. Secondary to acute cholecystitis No ductal dilatation noted on imaging Downtrending. (3) Constipation: Code(s): K59.00 - Constipation, unspecified Status: Acute Assessment and Plan: Abdomen US: Lobulated sludge is identified within the distended gallbladder, consistent with the appearance described on recent CT examination. Pericholecystic fluid is also present along with gallbladder wall thickening measuring almost [address] abdomen/pelvis: Significant fecal stasis is also detected, markedly distending the rectum with mural thickening and presacral inflammation. - Enema ordered (4) Lung consolidation: Code(s): J18.1 - Lobar pneumonia, unspecified organism Status: Acute Assessment and Plan: Chest XR: Mild pulmonary vascular congestion without focal infiltrate CT abdomen/pelvis: Bibasilar consolidation is also noted, right greater than left. - Plan for swallow study to evaluate for possible aspiration. Will hold on that for now given acute problems and the fact that he is currently NPO. (5) Heart failure of unknown type: Code(s): I50.9 - Heart failure, unspecified Status: Acute Assessment and Plan: Appears euvolemic, not in acute exacerbation (6) Hypertension: Code(s): I10 - Essential (primary) hypertension Status: Acute Assessment and Plan: Chronic - Blood pressures remain stable at this time, will resume home medications when patient is no longer NPO (7) Psychiatric illness: Code(s): F99 - Mental disorder, not otherwise specified Status: Acute Assessment and Plan: History of depression - Resume fluoxetine 20 mg daily when patient no longer NPO Time Spent With Patient Time with patient: 25 - 35 minutes Subjective Date/time seen: 01/07/25 07:38 Interval history: 64-year-old male with history of stroke, insulin-dependent diabetes, congestive heart failure, hypertension, benign prostatic hyperplasia, gastroesophageal reflux disease, and depression who presented to the hospital via EMS from [facility] for evaluation of weakness and abdominal pain. Patient is pleasant lying in bed. He continues to endorse diffuse abdominal pain more so to the right upper quadrant. He has no other complaints denies chest pain, shortness a breath, palpitations, nausea/vomiting. Review of Systems Review of Systems: All systems reviewed & are unremarkable except as noted in HPI and below Exam Narrative: AF HR 79 RR 18 SpO2 98 BP 139/88 General: male in no acute respiratory distress who is nontoxic appearing, lying semi recumbent in bed. HEENT: Normocephalic. Atraumatic. Extraocular movement intact. Sclera clear and anicteric. No facial asymmetry. Chest: Lungs are clear to auscultation bilaterally. No wheezes or crackles. CV: Heart was regular rate and rhythm. S1/S2. No murmurs, gallops, or rubs. Abd: Abdomen was soft. Tender throughout more to to the RUQ. Nondistended. Positive bowel sounds. Ext: No clubbing, cyanosis, or edema. DP pulses bilaterally. Neuro: Patient is alert. Speech is clear. Objective Data Vital Signs Vital Signs: Vital Signs - 24 hr 01/06/25 18:00 01/06/25 21:46 01/07/25 01:05 Temperature 98.8 F Pulse Rate 99 83 81 Respiratory Rate 16 14 14 Blood Pressure 131/90 137/79 151/95 H Pulse Oximetry 100 100 99 Oxygen Delivery Room Air 01/07/25 02:06 01/07/25 05:46 Temperature 98.0 F 98.8 F Pulse Rate 71 69 Respiratory Rate 18 18 Blood Pressure 145/88 H 151/88 H Pulse Oximetry 100 98 Oxygen Delivery Intake/Output Intake/Output: Intake & Output 01/04/25 01/05/25 01/06/25 01/07/25 23:59 23:59 23:59 23:59 Intake Total 1000 50 Output Total 80 Balance 920 50 Meds/Results Medications: Active Medications Generic Name Dose Route Start Last Admin Trade Name Freq PRN Reason Stop Dose Admin Piperacillin/Tazobactam/Dextrose 3.375 gm in 50 mls @ 100 mls/hr 01/07/25 05:00 01/07/25 05:07 Zosyn 3.375 Gm/Ns 50 Ml IVPB 100 mls/hr Q6H [place] Administration Sodium Chloride 1,000 mls @ 125 mls/hr 01/07/25 04:53 01/07/25 05:07 Normal Saline Iv IV CONT 01/07/25 12:52 125 mls/hr .Q8H ONE Administration Morphine Sulfate 4 mg 01/06/25 23:06 Morphine Sulfate (*Crx) 4 Mg/Ml Inj IV PUSH Q2H PRN Pain Rated 7-10 Morphine Sulfate 2 mg 01/07/25 04:53 Morphine Sulfate (*Crx) 2 Mg/Ml Inj IV PUSH Q4H PRN Pain Rated 4-6 Ondansetron HCl 4 mg 01/06/25 23:06 Ondansetron Inj 4 Mg/2 Ml Vial IV PUSH Q4H PRN Nausea Radiology Results: ITS Impressions Chest X-Ray 01/06/25 19:21 IMPRESSION: Mild pulmonary vascular congestion without focal infiltrate Abdomen/Pelvis CT 01/06/25 22:03 IMPRESSION: Findings consistent with acute cholecystitis, as detailed above. Significant fecal stasis is also detected, markedly distending the rectum with mural thickening and presacral inflammation. Bibasilar consolidation is also noted, right greater than left. Abdomen Ultrasound 01/06/25 23:14 IMPRESSION: Acute cholecystitis, as detailed above, consistent with previous imaging performed through 90 minutes earlier. Labs Labs: Laboratory Results - last 24 hr 01/06/25 01/06/25 01/06/25 18:33 19:07 19:52 WBC 15.0 H RBC 6.61 H Hgb 14.5 D Hct 49.1 MCV 74.3 L MCH 21.9 L MCHC 29.5 L RDW 18.8 H Plt Count 143 L MPV 10.8 H Immature Gran % (Auto) 0.5 Neut % (Auto) 82.4 H Lymph % (Auto) 7.1 L [place] % (Auto) 9.7 H Eos % (Auto) 0.1 Baso % (Auto) 0.2 Lymph # (Auto) 1.06 [place] # (Auto) 1.5 H Eos # (Auto) 0.0 Baso # (Auto) 0.0 Abs Immat Gran (auto) 0.08 H Absolute Neuts (auto) 12.3 H Absolute Nucleated RBC 0.000 Band Neutrophils % 0 Nucleated RBC % 0.0 Platelet Estimate Slightly decreased % Immature Plt Fraction 4.0 Hypochromasia 1+ Anisocytosis 2+ Microcytosis 1+ Schistocytes None seen Sodium Potassium Chloride Carbon Dioxide Anion Gap BUN Creatinine Estim Creat Clear Calc Estimated GFR Glucose Lactic Acid Calcium Magnesium Total Bilirubin AST ALT Alkaline Phosphatase Troponin I Total Protein Albumin Lipase Procalcitonin 1.4 Urine Color Urine Appearance Urine pH Ur Specific [place] Urine Protein Urine Glucose (UA) Urine Ketones Ur Blood (Man) Urine Nitrate Urine Bilirubin Urine Urobilinogen Add Ur Microanalysis Leukocyte Esterase Rfl Urine RBC Urine WBC Ur Squamous Epith Cells Amorphous Sediment Urine Bacteria Urine Casts Influenza A (RT-PCR) Negative Influenza B (RT-PCR) Negative RSV (RT-PCR) Negative SARS-CoV-2 RNA (RT-PCR) Negative 01/06/25 01/06/25 01/06/25 20:16 20:16 20:16 WBC RBC Hgb Hct MCV MCH MCHC RDW Plt Count MPV Immature Gran % (Auto) Neut % (Auto) Lymph % (Auto) [place] % (Auto) Eos % (Auto) Baso % (Auto) Lymph # (Auto) [place] # (Auto) Eos # (Auto) Baso # (Auto) Abs Immat Gran (auto) Absolute Neuts (auto) Absolute Nucleated RBC Band Neutrophils % Nucleated RBC % Platelet Estimate % Immature Plt Fraction Hypochromasia Anisocytosis Microcytosis Schistocytes Sodium Cancelled 136 L Potassium Cancelled 4.3 Chloride Cancelled Carbon Dioxide Anion Gap BUN Creatinine Estim Creat Clear Calc Estimated GFR Glucose Lactic Acid Calcium Magnesium Total Bilirubin AST ALT Alkaline Phosphatase Troponin I Total Protein Albumin Lipase Procalcitonin Urine Color Urine Appearance Urine pH Ur Specific [place] Urine Protein Urine Glucose (UA) Urine Ketones Ur Blood (Man) Urine Nitrate Urine Bilirubin Urine Urobilinogen Add Ur Microanalysis Leukocyte Esterase Rfl Urine RBC Urine WBC Ur Squamous Epith Cells Amorphous Sediment Urine Bacteria Urine Casts Influenza A (RT-PCR) Influenza B (RT-PCR) RSV (RT-PCR) SARS-CoV-2 RNA (RT-PCR) 01/06/25 01/06/25 01/06/25 20:16 20:16 20:16 WBC RBC Hgb Hct MCV MCH MCHC RDW Plt Count MPV Immature Gran % (Auto) Neut % (Auto) Lymph % (Auto) [place] % (Auto) Eos % (Auto) Baso % (Auto) Lymph # (Auto) [place] # (Auto) Eos # (Auto) Baso # (Auto) Abs Immat Gran (auto) Absolute Neuts (auto) Absolute Nucleated RBC Band Neutrophils % Nucleated RBC % Platelet Estimate % Immature Plt Fraction Hypochromasia Anisocytosis Microcytosis Schistocytes Sodium Potassium Chloride 101 Carbon Dioxide Cancelled 24 Anion Gap Cancelled 11 BUN Cancelled Creatinine Estim Creat Clear Calc Estimated GFR Glucose Lactic Acid Calcium Magnesium Total Bilirubin AST ALT Alkaline Phosphatase Troponin I Total Protein Albumin Lipase Procalcitonin Urine Color Urine Appearance Urine pH Ur Specific [place] Urine Protein Urine Glucose (UA) Urine Ketones Ur Blood (Man) Urine Nitrate Urine Bilirubin Urine Urobilinogen Add Ur Microanalysis Leukocyte Esterase Rfl Urine RBC Urine WBC Ur Squamous Epith Cells Amorphous Sediment Urine Bacteria Urine Casts Influenza A (RT-PCR) Influenza B (RT-PCR) RSV (RT-PCR) SARS-CoV-2 RNA (RT-PCR) 01/06/25 01/06/25 01/06/25 20:16 20:16 20:16 WBC RBC Hgb Hct MCV MCH MCHC RDW Plt Count MPV Immature Gran % (Auto) Neut % (Auto) Lymph % (Auto) [place] % (Auto) Eos % (Auto) Baso % (Auto) Lymph # (Auto) [place] # (Auto) Eos # (Auto) Baso # (Auto) Abs Immat Gran (auto) Absolute Neuts (auto) Absolute Nucleated RBC Band Neutrophils % Nucleated RBC % Platelet Estimate % Immature Plt Fraction Hypochromasia Anisocytosis Microcytosis Schistocytes Sodium Potassium Chloride Carbon Dioxide Anion Gap BUN 21 H D Creatinine Cancelled 1.01 Estim Creat Clear Calc Cancelled 57 Estimated GFR Cancelled Glucose Lactic Acid Calcium Magnesium Total Bilirubin AST ALT Alkaline Phosphatase Troponin I Total Protein Albumin Lipase Procalcitonin Urine Color Urine Appearance Urine pH Ur Specific [place] Urine Protein Urine Glucose (UA) Urine Ketones Ur Blood (Man) Urine Nitrate Urine Bilirubin Urine Urobilinogen Add Ur Microanalysis Leukocyte Esterase Rfl Urine RBC Urine WBC Ur Squamous Epith Cells Amorphous Sediment Urine Bacteria Urine Casts Influenza A (RT-PCR) Influenza B (RT-PCR) RSV (RT-PCR) SARS-CoV-2 RNA (RT-PCR) 01/06/25 01/06/25 01/06/25 20:16 20:16 20:16 WBC RBC Hgb Hct MCV MCH MCHC RDW Plt Count MPV Immature Gran % (Auto) Neut % (Auto) Lymph % (Auto) [place] % (Auto) Eos % (Auto) Baso % (Auto) Lymph # (Auto) [place] # (Auto) Eos # (Auto) Baso # (Auto) Abs Immat Gran (auto) Absolute Neuts (auto) Absolute Nucleated RBC Band Neutrophils % Nucleated RBC % Platelet Estimate % Immature Plt Fraction Hypochromasia Anisocytosis Microcytosis Schistocytes Sodium Potassium Chloride Carbon Dioxide Anion Gap BUN Creatinine Estim Creat Clear Calc Estimated GFR > 60 Glucose Cancelled 145 H Lactic Acid 1.3 Calcium Cancelled 10.5 H Magnesium 2.1 Total Bilirubin Cancelled AST ALT Alkaline Phosphatase Troponin I Total Protein Albumin Lipase Procalcitonin Urine Color Urine Appearance Urine pH Ur Specific [place] Urine Protein Urine Glucose (UA) Urine Ketones Ur Blood (Man) Urine Nitrate Urine Bilirubin Urine Urobilinogen Add Ur Microanalysis Leukocyte Esterase Rfl Urine RBC Urine WBC Ur Squamous Epith Cells Amorphous Sediment Urine Bacteria Urine Casts Influenza A (RT-PCR) Influenza B (RT-PCR) RSV (RT-PCR) SARS-CoV-2 RNA (RT-PCR) 01/06/25 01/06/25 01/06/25 20:16 20:16 20:16 WBC RBC Hgb Hct MCV MCH MCHC RDW Plt Count MPV Immature Gran % (Auto) Neut % (Auto) Lymph % (Auto) [place] % (Auto) Eos % (Auto) Baso % (Auto) Lymph # (Auto) [place] # (Auto) Eos # (Auto) Baso # (Auto) Abs Immat Gran (auto) Absolute Neuts (auto) Absolute Nucleated RBC Band Neutrophils % Nucleated RBC % Platelet Estimate % Immature Plt Fraction Hypochromasia Anisocytosis Microcytosis Schistocytes Sodium Potassium Chloride Carbon Dioxide Anion Gap BUN Creatinine Estim Creat Clear Calc Estimated GFR Glucose Lactic Acid Calcium Magnesium Total Bilirubin 2.0 H AST Cancelled 134 H ALT Cancelled 974 H Alkaline Phosphatase Cancelled Troponin I Total Protein Albumin Lipase Procalcitonin Urine Color Urine Appearance Urine pH Ur Specific [place] Urine Protein Urine Glucose (UA) Urine Ketones Ur Blood (Man) Urine Nitrate Urine Bilirubin Urine Urobilinogen Add Ur Microanalysis Leukocyte Esterase Rfl Urine RBC Urine WBC Ur Squamous Epith Cells Amorphous Sediment Urine Bacteria Urine Casts Influenza A (RT-PCR) Influenza B (RT-PCR) RSV (RT-PCR) SARS-CoV-2 RNA (RT-PCR) 01/06/25 01/06/25 01/06/25 20:16 20:16 20:16 WBC RBC Hgb Hct MCV MCH MCHC RDW Plt Count MPV Immature Gran % (Auto) Neut % (Auto) Lymph % (Auto) [place] % (Auto) Eos % (Auto) Baso % (Auto) Lymph # (Auto) [place] # (Auto) Eos # (Auto) Baso # (Auto) Abs Immat Gran (auto) Absolute Neuts (auto) Absolute Nucleated RBC Band Neutrophils % Nucleated RBC % Platelet Estimate % Immature Plt Fraction Hypochromasia Anisocytosis Microcytosis Schistocytes Sodium Potassium Chloride Carbon Dioxide Anion Gap BUN Creatinine Estim Creat Clear Calc Estimated GFR Glucose Lactic Acid Calcium Magnesium Total Bilirubin AST ALT Alkaline Phosphatase 254 H Troponin I < 0.012 Total Protein Cancelled 8.0 Albumin Cancelled 4.0 Lipase 24 Procalcitonin Urine Color Urine Appearance Urine pH Ur Specific [place] Urine Protein Urine Glucose (UA) Urine Ketones Ur Blood (Man) Urine Nitrate Urine Bilirubin Urine Urobilinogen Add Ur Microanalysis Leukocyte Esterase Rfl Urine RBC Urine WBC Ur Squamous Epith Cells Amorphous Sediment Urine Bacteria Urine Casts Influenza A (RT-PCR) Influenza B (RT-PCR) RSV (RT-PCR) SARS-CoV-2 RNA (RT-PCR) 01/06/25 01/07/25 20:43 05:39 WBC 11.9 H RBC 5.77 Hgb 12.8 L Hct 41.9 L MCV 72.6 L MCH 22.2 L MCHC 30.5 L RDW 17.9 H Plt Count 210 MPV 10.9 H Immature Gran % (Auto) Neut % (Auto) Lymph % (Auto) [place] % (Auto) Eos % (Auto) Baso % (Auto) Lymph # (Auto) [place] # (Auto) Eos # (Auto) Baso # (Auto) Abs Immat Gran (auto) Absolute Neuts (auto) Absolute Nucleated RBC Band Neutrophils % Nucleated RBC % Platelet Estimate % Immature Plt Fraction Hypochromasia Anisocytosis Microcytosis Schistocytes Sodium 137 Potassium 4.1 Chloride 103 Carbon Dioxide 27 Anion Gap 7 BUN 21 H Creatinine 0.95 Estim Creat Clear Calc 61 Estimated GFR > 60 Glucose 113 H Lactic Acid Calcium 9.9 Magnesium 2.0 Total Bilirubin 1.9 H AST 104 H ALT 747 H Alkaline Phosphatase 213 H Troponin I Total Protein 7.0 Albumin 3.6 Lipase Procalcitonin Urine Color Dark yellow Urine Appearance Cloudy H Urine pH 5.0 Ur Specific [place] 1.026 Urine Protein 2+ H Urine Glucose (UA) Negative Urine Ketones Trace H Ur Blood (Man) Negative Urine Nitrate Negative Urine Bilirubin 2+ H Urine Urobilinogen 1.0 Add Ur Microanalysis Reviewed Leukocyte Esterase Rfl Negative Urine RBC 3-5 H Urine WBC 0-5 Ur Squamous Epith Cells None seen Amorphous Sediment Few H Urine Bacteria None seen Urine Casts 6-10 Influenza A (RT-PCR) Influenza B (RT-PCR) RSV (RT-PCR) SARS-CoV-2 RNA (RT-PCR) Quality VTE Prophylaxis VTE prophylaxis: mechanical ordered
[2025-01-07 07:55] VITALS: RESP 18; O2SAT 98
--- NOTE | 2025-01-07 09:55 | PM.CNGS ---
Assessment and Plan Assessment and plan (1) Acute cholecystitis: Code(s): K81.0 - Acute cholecystitis Status: Acute Assessment and Plan: CT and ultrasound with findings consistent with acute cholecystitis. US showed sludge within the gallbladder. He is still having abdominal pain and has focal tenderness and guarding over the area of the gallbladder. His WBC count was 15,000 on admission and LFTs were elevated. Total bilirubin was 2.0, no biliary duct dilatation on CT or ultrasound. We would recommend to continue IV Zosyn as ordered. I called and spoke with the patient's brother/POA regarding treatment options. Given his multiple co-morbidities and immobility, he would be a high risk surgical candidate. We would recommend proceeding with percutaneous cholecystostomy tube placement in IR. Patient's family agreeable to this option. Will go ahead and order image-guided cholecystostomy tube placement today. Labs ordered. Continue IV antibiotics. Will keep him NPO with IV fluids while awaiting procedure. (2) Fecal impaction: Code(s): K56.41 - Fecal impaction Status: Acute Assessment and Plan: CT showed fecal stasis within the colon with a fecal impaction distending the rectum with mural thickening and presacral inflammation. It does not appear that he has had any bowel movements, will give him a fleets enema this morning. (3) Transaminitis: Code(s): R74.01 - Elevation of levels of liver transaminase levels Status: Acute Assessment and Plan: LFTs elevated on admission. No biliary duct dilatation on imaging on admission. Likely related to his cholecystitis. Will trend labs. See plan above. (4) CVA (cerebral vascular accident): Qualifiers: CVA mechanism: unspecified Qualified Code(s): I63.9 - Cerebral infarction, unspecified Code(s): I63.9 - Cerebral infarction, unspecified Status: Acute (5) Gastroesophageal reflux disease: Code(s): K21.9 - Gastro-esophageal reflux disease without esophagitis Status: Acute Plan I have discussed the patient's case and plan of care with Dr. Rivera. Thank you for allowing us to see the patient in consultation and we will continue to follow along with you. 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 The patient resides at a nursing facility and is a poor historian. He is only oriented to self. He is confused at baseline per his family. I did call his brother and POA for additional medical history and to discuss his plan. Otherwise, history was also obtained by review of the EMR. He was brought into the ED from the nursing facility for abdominal pain and generalized weakness. He has been wheelchair-bound since March of last year following his brain surgery. In the ED, [place] [address], total bilirubin 2.0, AST 134, ALT 974, alk-phos 254. CT scan of the abdomen and pelvis showed findings consistent with acute cholecystitis. No CT evidence of gallstones. Right upper quadrant abdominal ultrasound showed lobulated sludge within the distended gallbladder and an appearance consistent with acute cholecystitis. He was admitted to the hospitalist service. He has been started on IV Zosyn. He is able to answer simple questions and does report abdominal pain. He cannot localize his pain. Review of Systems Review of Systems: ROS unobtainable: Yes unobtainable due to mental status PMFSH Past Medical History Medical History History of benign brain tumor January 2024 found to have a benign brain tumor that was removed Prostate cancer Schizophrenia Depression Anemia Benign prostatic hyperplasia Gastroesophageal reflux disease Hypertension Heart failure of unknown type Cerebrovascular accident Hemorrhage following brain tumor removal with CVA with second surgery Surgical History Surgical History History of brain surgery January of 2024 Family History Family History Other Unknown family medical history Social History Social History Social History: Surrogate medical decision maker: Jose Suarez, brother. Code status: Full code. Smoking status: Never smoker Alcohol intake: never Substance use: never Substance use type: does not use Do You Feel Safe in your Home?: Yes Lack of Transportation: No Lack of Food: Never True Current Housing: I Have Housing Concerned About Future Housing: No Difficulty Paying Gas/Electric Bills: No Difficulty Paying for Meds: No Currently Unemployed: No Education: High School Diploma/GED Difficulty w/ Childcare or Family Care: No Spiritual care concerns: No Meds Home Medications and Allergies Home Medications ?Medication ?Instructions ?Recorded ?Confirmed ?Type ondansetron 4 mg disintegrating 4 mg PO Q8H PRN nausea and 03/23/24 01/07/25 Rx tablet vomiting #15 tabs B-complex with vitamin C 1 tablet PO DAILY 09/29/24 01/07/25 History acetaminophen 500 mg capsule 500 mg PO Q6H PRN fever or pain 09/29/24 01/07/25 History amino acids-protein hydrolysate 15 See Rx Instructions PO BID 09/29/24 01/07/25 History gram-100 kcal/30 mL oral liquid (Pro-Stat Sugar Free) aspirin 81 mg tablet,delayed 81 mg PO DAILY 09/29/24 01/07/25 History release cholecalciferol (vitamin D3) 25 25 mcg PO DAILY 09/29/24 01/07/25 History mcg (1,000 unit) capsule docusate sodium 100 mg capsule 100 mg PO DAILY 09/29/24 01/07/25 History famotidine 20 mg tablet 20 mg PO DAILY 09/29/24 01/07/25 History ferrous sulfate 325 mg (65 mg 325 mg PO DAILY 09/29/24 01/07/25 History iron) tablet fluoxetine 20 mg capsule 20 mg PO DAILY 09/29/24 01/07/25 History fluvoxamine 50 mg tablet 50 mg PO QHS 09/29/24 01/07/25 History furosemide 20 mg tablet 20 mg PO QAM 09/29/24 01/07/25 History insulin glargine 100 unit/mL 10 unit subcut QPM 09/29/24 01/07/25 History subcutaneous solution levetiracetam 1,000 mg tablet 1,000 mg PO Q12H 09/29/24 01/07/25 History lorazepam 0.5 mg tablet 0.5 mg PO Q12H 09/29/24 01/07/25 History naltrexone 50 mg tablet 50 mg PO DAILY 09/29/24 01/07/25 History sennosides 8.6 mg capsule (senna) 8.6 mg PO BID 09/29/24 01/07/25 History spironolactone 25 mg tablet 25 mg PO DAILY 09/29/24 01/07/25 History tamsulosin 0.4 mg capsule 0.4 mg PO DAILY 09/29/24 01/07/25 History Biotene Dry Mouth Oral spray See Rx Instructions .Route Q2H PRN 01/07/25 01/07/25 History dry mouth benzocaine 6 mg-menthol 10 mg 1 keith mucous membrane Q4H PRN sore 01/07/25 01/07/25 History lozenges (Chloraseptic Sore Throat) throat benzonatate 100 mg capsule 100 mg PO TID 01/07/25 01/07/25 History goodsense gel See Rx Instructions .Route Q6H PRN 01/07/25 01/07/25 History pain hydroxyzine HCl 25 mg tablet 25 mg PO Q12H PRN anxiety 01/07/25 01/07/25 History metformin 750 mg tablet,extended 750 mg PO DAILY 01/07/25 01/07/25 History release 24 hr zinc oxide 10 % topical cream 1 applic topical TID PRN skin 01/07/25 01/07/25 History (Secura Protective (zinc oxide)) irritation Allergies Allergy/AdvReac Type Severity Reaction Status Date / Time lacosamide (From [facility]) Allergy Unknown Verified 09/29/24 13:51 Vital Signs Vital Signs - 24 hr 01/06/25 18:00 01/06/25 21:46 01/07/25 01:05 Temperature 98.8 F Pulse Rate 99 83 81 Respiratory Rate 16 14 14 Blood Pressure 131/90 137/79 151/95 H Pulse Oximetry 100 100 99 Oxygen Delivery Room Air 01/07/25 02:06 01/07/25 05:46 Temperature 98.0 F 98.8 F Pulse Rate 71 69 Respiratory Rate 18 18 Blood Pressure 145/88 H 151/88 H Pulse Oximetry 100 98 Oxygen Delivery Exam Const: General: comfortable and no acute distress Nutritional Appearance: average body habitus Orientation/consciousness: oriented to person, No oriented to place, No oriented to time and confusion HENMT: Head: normocephalic and atraumatic Ears: hearing grossly normal bilaterally Mouth: Yes moist mucous membranes Eyes: General: appearance normal, both eyes and all related structures Pupils: Equal, round and reactive pupils present Neck: Neck: normal visual inspection and full ROM Resp: Effort & Inspection: no respiratory distress Auscultation: clear to auscultation bilaterally Cardio: Rate: regular rate Rhythm: regular rhythm Peripheral pulses: Peripheral pulses 2+ throughout GI: Inspection: non-distended, no scars and no visible herniation GI Palp: Yes Soft to palpation, Yes Tenderness to palpation present (GI) (mild diffuse tenderness with focal tenderness and guarding in RUQ), Yes Guarding due to palpation present (GI) (RUQ) and No Rebound tenderness present Auscultation: normal bowel sounds Skin: General skin exam: normal color Neuro: General: moves all extremities and no focal motor deficits Speech: normal speech Motor exam (neuro): 5/5 motor strength present throughout Extrem: General: no edema and other (right hemiplegia) Psych: Attitude: cooperative Insight: Limited insight present (Psych) Judgement: Limited judgement present (Psych) Results Labs 01/07/25 05:39 01/07/25 05:39 Labs: Abnormal lab results 01/06/25 01/06/25 01/06/25 Range/Units 19:07 20:16 20:43 WBC 15.0 H (4.5-10.0) K/mm3 RBC 6.61 H (4.6-6.20) M/mm3 Hgb (14.0-18.0) g/dL Hct (42.0-52.0) % MCV 74.3 L (80-100) fl MCH 21.9 L (26-34) pg MCHC 29.5 L (32-36) g/dl RDW 18.8 H (11.5-14.5) % Plt Count 143 L (150-375) k/mm3 MPV 10.8 H (7.4-10.4) fl Neut % (Auto) 82.4 H (45.5-73.1) % Lymph % (Auto) 7.1 L (18.3-44.2) % [place] % (Auto) 9.7 H (2.6-8.5) % [place] # (Auto) 1.5 H (0.1-0.6) K/mm3 Abs Immat Gran (auto) 0.08 H (0.00-0.031) K/mm3 Absolute Neuts (auto) 12.3 H (1.3-6.7) K/mm3 Sodium 136 L (137-145) mmol/L BUN 21 H D (9-20) mg/dL Glucose 145 H (65-110) mg/dL Calcium 10.5 H (8.4-10.2) mg/dL Total Bilirubin 2.0 H (0.2-1.3) mg/dL AST 134 H (17-59) U/L ALT 974 H (6-50) U/L Alkaline Phosphatase 254 H (38-126) U/L Urine Appearance Cloudy H (Clear) Urine Protein 2+ H (Negative) mg/dL Urine Ketones Trace H (Negative) mg/dL Urine Bilirubin 2+ H (Negative) Urine RBC 3-5 H (0-2) /hpf Amorphous Sediment Few H (None) 01/07/25 Range/Units 05:39 WBC 11.9 H (4.5-10.0) K/mm3 RBC (4.6-6.20) M/mm3 Hgb 12.8 L (14.0-18.0) g/dL Hct 41.9 L (42.0-52.0) % MCV 72.6 L (80-100) fl MCH 22.2 L (26-34) pg MCHC 30.5 L (32-36) g/dl RDW 17.9 H (11.5-14.5) % Plt Count (150-375) k/mm3 MPV 10.9 H (7.4-10.4) fl Neut % (Auto) (45.5-73.1) % Lymph % (Auto) (18.3-44.2) % [place] % (Auto) (2.6-8.5) % [place] # (Auto) (0.1-0.6) K/mm3 Abs Immat Gran (auto) (0.00-0.031) K/mm3 Absolute Neuts (auto) (1.3-6.7) K/mm3 Sodium (137-145) mmol/L BUN 21 H (9-20) mg/dL Glucose 113 H (65-110) mg/dL Calcium (8.4-10.2) mg/dL Total Bilirubin 1.9 H (0.2-1.3) mg/dL AST 104 H (17-59) U/L ALT 747 H (6-50) U/L Alkaline Phosphatase 213 H (38-126) U/L Urine Appearance (Clear) Urine Protein (Negative) mg/dL Urine Ketones (Negative) mg/dL Urine Bilirubin (Negative) Urine RBC (0-2) /hpf Amorphous Sediment (None) Diabetes panel 01/06/25 01/06/25 01/06/25 Range/Units 20:16 20:16 20:16 Sodium Cancelled 136 L Potassium Cancelled 4.3 Chloride Cancelled Carbon Dioxide BUN Creatinine Glucose Calcium AST ALT Alkaline Phosphatase Total Protein Albumin 01/06/25 01/06/25 01/06/25 Range/Units 20:16 20:16 20:16 Sodium Potassium Chloride 101 Carbon Dioxide Cancelled 24 BUN Cancelled 21 H D Creatinine Cancelled Glucose Calcium AST ALT Alkaline Phosphatase Total Protein Albumin 01/06/25 01/06/25 01/06/25 Range/Units 20:16 20:16 20:16 Sodium Potassium Chloride Carbon Dioxide BUN Creatinine 1.01 Glucose Cancelled 145 H Calcium Cancelled 10.5 H AST Cancelled ALT Alkaline Phosphatase Total Protein Albumin 01/06/25 01/06/25 01/06/25 Range/Units 20:16 20:16 20:16 Sodium Potassium Chloride Carbon Dioxide BUN Creatinine Glucose Calcium AST 134 H ALT Cancelled 974 H Alkaline Phosphatase Cancelled 254 H Total Protein Cancelled Albumin 01/06/25 01/06/25 01/07/25 Range/Units 20:16 20:16 05:39 Sodium 137 Potassium 4.1 Chloride 103 Carbon Dioxide 27 BUN 21 H Creatinine 0.95 Glucose 113 H Calcium 9.9 AST 104 H ALT 747 H Alkaline Phosphatase 213 H Total Protein 8.0 7.0 Albumin Cancelled 4.0 3.6 Calcium panel 01/06/25 01/06/25 01/06/25 Range/Units 20:16 20:16 20:16 Calcium Cancelled 10.5 H Albumin Cancelled 4.0 01/07/25 Range/Units 05:39 Calcium 9.9 Albumin 3.6 Pituitary panel 01/06/25 01/06/25 01/06/25 Range/Units 20:16 20:16 20:16 Sodium Cancelled 136 L Potassium Cancelled 4.3 Chloride Cancelled Carbon Dioxide BUN Creatinine Glucose Calcium 01/06/25 01/06/25 01/06/25 Range/Units 20:16 20:16 20:16 Sodium Potassium Chloride 101 Carbon Dioxide Cancelled 24 BUN Cancelled 21 H D Creatinine Cancelled Glucose Calcium 01/06/25 01/06/25 01/06/25 Range/Units 20:16 20:16 20:16 Sodium Potassium Chloride Carbon Dioxide BUN Creatinine 1.01 Glucose Cancelled 145 H Calcium Cancelled 10.5 H 01/07/25 Range/Units 05:39 Sodium 137 Potassium 4.1 Chloride 103 Carbon Dioxide 27 BUN 21 H Creatinine 0.95 Glucose 113 H Calcium 9.9 Adrenal panel 01/06/25 01/06/25 01/06/25 Range/Units 20:16 20:16 20:16 Sodium Cancelled 136 L Potassium Cancelled 4.3 Chloride Cancelled Carbon Dioxide BUN Creatinine Glucose Calcium Total Bilirubin AST ALT Alkaline Phosphatase Total Protein Albumin 01/06/25 01/06/25 01/06/25 Range/Units 20:16 20:16 20:16 Sodium Potassium Chloride 101 Carbon Dioxide Cancelled 24 BUN Cancelled 21 H D Creatinine Cancelled Glucose Calcium Total Bilirubin AST ALT Alkaline Phosphatase Total Protein Albumin 01/06/25 01/06/25 01/06/25 Range/Units 20:16 20:16 20:16 Sodium Potassium Chloride Carbon Dioxide BUN Creatinine 1.01 Glucose Cancelled 145 H Calcium Cancelled 10.5 H Total Bilirubin Cancelled AST ALT Alkaline Phosphatase Total Protein Albumin 01/06/25 01/06/25 01/06/25 Range/Units 20:16 20:16 20:16 Sodium Potassium Chloride Carbon Dioxide BUN Creatinine Glucose Calcium Total Bilirubin 2.0 H AST Cancelled 134 H ALT Cancelled 974 H Alkaline Phosphatase Cancelled Total Protein Albumin 01/06/25 01/06/25 01/06/25 Range/Units 20:16 20:16 20:16 Sodium Potassium Chloride Carbon Dioxide BUN Creatinine Glucose Calcium Total Bilirubin AST ALT Alkaline Phosphatase 254 H Total Protein Cancelled 8.0 Albumin Cancelled 4.0 01/07/25 Range/Units 05:39 Sodium 137 Potassium 4.1 Chloride 103 Carbon Dioxide 27 BUN 21 H Creatinine 0.95 Glucose 113 H Calcium 9.9 Total Bilirubin 1.9 H AST 104 H ALT 747 H Alkaline Phosphatase 213 H Total Protein 7.0 Albumin 3.6 All other labs normal. Imaging Additional studies: ITS Impressions Chest X-Ray 01/06/25 19:21 IMPRESSION: Mild pulmonary vascular congestion without focal infiltrate Abdomen/Pelvis CT 01/06/25 22:03 IMPRESSION: Findings consistent with acute cholecystitis, as detailed above. Significant fecal stasis is also detected, markedly distending the rectum with mural thickening and presacral inflammation. Bibasilar consolidation is also noted, right greater than left. Abdomen Ultrasound 01/06/25 23:14 IMPRESSION: Acute cholecystitis, as detailed above, consistent with previous imaging performed through 90 minutes earlier.
[2025-01-07 11:21] LABS: INR 1.1; Prothrombin Time 14.5 Seconds (11.1-14.7)
[2025-01-07 11:22] LABS: Partial Thromboplastin Time 35.7 Seconds (22.3-36.8)
[2025-01-07 12:03] LABS: Glucose Point of Care 107 mg/dl (65-105)
[2025-01-07 13:58] VITALS: BP 139/88; PULSE 79; RESP 18; TEMP 36.4; O2SAT 98
--- NOTE | 2025-01-07 14:05 | PC.NURSE ---
This nurse administered Fleets Enema @ 8699. Patient tolerated well.
[2025-01-07] MEDS: MORPHINE SULFATE (*CRX) 2 MG/ML INJ IV PUSH (17:07)
[2025-01-07] MEDS: MAGNESIUM HYDROXIDE SUSP 30 ML UDC PO (17:08)
[2025-01-07 17:37] LABS: Glucose Point of Care 115 mg/dl (65-105)
[2025-01-07 20:14] VITALS: BP 141/68; PULSE 86; RESP 18; TEMP 36.5; O2SAT 98
[2025-01-08] MEDS: PIPERACILLN/TAZ 3.375GM/NS50ML 3.375 GM/50 ML BAG IVPB ×5 (00:13→22:44)
[2025-01-08 05:02] VITALS: BP 124/81; PULSE 79; RESP 17; TEMP 36.9; O2SAT 100
[2025-01-08 05:51] LABS: Basophils Percent Auto 0.2 % (0.2-1.2); Eosinophils Absolute Auto 0.1 K/mm3 (0-0.3); Eosinophils Percent Auto 1.2 % (0-4.4); Hematocrit 39.1 % (42.0-52.0); Hemoglobin 11.9 g/dL (14.0-18.0); Immature Granulocyte Absolute 0.05 K/mm3 (0.00-0.031); Immature Granulocyte Percent A 0.5 % (0-0.5); Lymphocytes Absolute Auto 0.88 K/mm3 (0.9-3.2); Mean Corpuscular HGB Conc 30.4 g/dl (32-36); Mean Corpuscular Volume 72.1 fl (80-100); Mean Platelet Volume 10.9 fl (7.4-10.4); Monocytes Percent Auto 9.8 % (2.6-8.5); Neutrophils Absolute Auto 7.7 K/mm3 (1.3-6.7); Neutrophils Percent Auto 79.3 % (45.5-73.1); Platelet Count Result 226 k/mm3 (150-375); Red Blood Count 5.42 M/mm3 (4.6-6.20); Red Cell Distribution Width 17.1 % (11.5-14.5); White Blood Count 9.8 K/mm3 (4.5-10.0)
[2025-01-08 06:03] LABS: Alanine Aminotransferase 457 U/L (6-50); Albumin Level 3.2 g/dL (3.5-5.1); Alkaline Phosphatase 222 U/L (38-126); Anion Gap 7 mmol/L (4-12); Aspartate Amino Transferase 56 U/L (17-59); Bilirubin,Total 1.6 mg/dL (0.2-1.3); Blood Urea Nitrogen 22 mg/dL (9-20); Calcium 9.6 mg/dL (8.4-10.2); Carbon Dioxide 27 mmol/L (22-30); Chloride 105 mmol/L (98-107); Estimated CRCL calculation 58 ml/min; Estimated Glomerular Filt Rate > 60; Glucose 110 mg/dL (65-110); Sodium 139 mmol/L (137-145)
[2025-01-08 06:29] LABS: Anisocytosis 2+; Band Neutrophils Percent 2 % (0-6); Burr Cells 1+; Hypochromasia 1+; Lymphocytes Absolute Manual 0.98 K/mm3 (1.1-4.5); Lymphocytes Percent Manual 10 % (18-44); Microcytosis 1+ (NORMAL); Monocytes Absolute Manual 0.88 K/mm3 (0.1-0.90); Monocytes Percent Manual 9 % (3-9); Neutrophils Absolute Manual 7.93 K/mm3 (1.3-6.7); Neutrophils Percent Manual 79 % (46-73); Platelet Estimate Adequate (Adequate); Total Cells Counted 100
[2025-01-08 06:30] LABS: Schistocytes None Seen
--- NOTE | 2025-01-08 08:39 | P.PNIM_ITS ---
Progress Note: A&P Assessment and Plan (1) Acute cholecystitis: Code(s): K81.0 - Acute cholecystitis Status: Acute Assessment and Plan: Abdomen/pelvis CT: The gallbladder is distended, with mural thickening and surrounding inflammatory change. Consistent with cholecystitis. Not meeting sepsis criteria - IV pain management - IV fluid resuscitation - Antibiotics: Zosyn 3.375 mg every 6 hours started on 01/07 - Blood cultures 01/06: NGTD - Diet: advance as tolerated - Monitor vital signs, I and O's, check stool output, neuro status and patient is a fall risk - Monitor serum electrolytes and CBC - Monitor lactic acid - Consult general surgery for further evaluation, appreciate assistance and recommendation Continue antibiotics S/p US perc cholecystostomy tube placement on 01/[address] Chaney. Bile sent for cultures. Drain with nonbloody nonpurulent bile. (2) Transaminitis: Code(s): R74.01 - Elevation of levels of liver transaminase levels Status: Acute Assessment and Plan: LFTs elevated on admission: Tot bili 2, AST 134, ALT 974, alk phos 254. Secondary to acute cholecystitis No ductal dilatation noted on imaging Downtrending. (3) Constipation: Code(s): K59.00 - Constipation, unspecified Status: Acute Assessment and Plan: Abdomen US: Lobulated sludge is identified within the distended gallbladder, consistent with the appearance described on recent CT examination. Pericholecystic fluid is also present along with gallbladder wall thickening measuring almost [address] abdomen/pelvis: Significant fecal stasis is also detected, markedly distending the rectum with mural thickening and presacral inflammation. - Enema performed Has since had 2 bowel movements (4) Lung consolidation: Code(s): J18.1 - Lobar pneumonia, unspecified organism Status: Acute Assessment and Plan: Chest XR: Mild pulmonary vascular congestion without focal infiltrate CT abdomen/pelvis: Bibasilar consolidation is also noted, right greater than left. - Swallow study to evaluate for possible aspiration. Unremarkable (5) Heart failure of unknown type: Code(s): I50.9 - Heart failure, unspecified Status: Acute Assessment and Plan: Appears euvolemic, not in acute exacerbation (6) Hypertension: Code(s): I10 - Essential (primary) hypertension Status: Acute Assessment and Plan: Chronic - lasix 20 mg daily - spironolactone 25 mg daily - Blood pressures reviewed and remain stable at this time (7) Psychiatric illness: Code(s): F99 - Mental disorder, not otherwise specified Status: Acute Assessment and Plan: History of depression - Resume fluoxetine 20 mg daily and fluvoxamine 50 mg daily Time Spent With Patient Time with patient: 25 - 35 minutes Subjective Date/time seen: 01/08/25 08:39 Interval history: 64-year-old male with history of stroke, insulin-dependent diabetes, congestive heart failure, hypertension, benign prostatic hyperplasia, gastroesophageal reflux disease, and depression who presented to the hospital via EMS [facility] for evaluation of weakness and abdominal pain. Patient is pleasant lying comfortably in bed. He has no complaints at this time denying chest pain, shortness a breath, palpitations, nausea/vomiting, no abdominal pain. His cholecystostomy tube is in place with nonbloody nonpurulent bile. Patient evaluated by speech therapy and able to continue regular diet and thin liquids per their recommendations. Will continue to advance diet as tolerated. Review of Systems Review of Systems: All systems reviewed & are unremarkable except as noted in HPI and below Exam Narrative: AF HR 79 RR 17 SPO2 100 BP 124/81 General: male in no acute respiratory distress who is nontoxic appearing, lying semi recumbent in bed. HEENT: Normocephalic. Atraumatic. Extraocular movement intact. Sclera clear and anicteric. No facial asymmetry. Chest: Lungs are clear to auscultation bilaterally. No wheezes or crackles. CV: Heart was regular rate and rhythm. S1/S2. No murmurs, gallops, or rubs. Abd: Abdomen was soft. Nondistended. Positive bowel sounds. Cholecystomy tube in place. Slight tenderness around the tube, drain with bile. No signs of infection. Ext: No clubbing, cyanosis, or edema. DP pulses bilaterally. Neuro: Patient is alert. Speech is clear. Objective Data Vital Signs Vital Signs: Vital Signs - 24 hr 01/07/25 13:58 01/07/25 20:00 01/07/25 20:14 Temperature 97.5 F L 97.7 F Pulse Rate 79 86 Respiratory Rate 18 18 Blood Pressure 139/88 141/68 H Pulse Oximetry 98 98 Oxygen Delivery Room Air 01/08/25 05:02 Temperature 98.4 F Pulse Rate 79 Respiratory Rate 17 Blood Pressure 124/81 Pulse Oximetry 100 Oxygen Delivery Intake/Output Intake/Output: Intake & Output 01/05/25 01/06/25 01/07/25 01/08/25 23:59 23:59 23:59 23:59 Intake Total 1000 200 50 Output Total 80 60 Balance 920 140 50 Meds/Results Medications: Active Medications Generic Name Dose Route Start Last Admin Trade Name Freq PRN Reason Stop Dose Admin Piperacillin/Tazobactam/Dextrose 3.375 gm in 50 mls @ 100 mls/hr 01/07/25 05:00 01/08/25 05:16 Zosyn 3.375 Gm/Ns 50 Ml IVPB 100 mls/hr Q6H [facility] Administration Morphine Sulfate 4 mg 01/06/25 23:06 Morphine Sulfate (*Crx) 4 Mg/Ml Inj IV PUSH Q2H PRN Pain Rated 7-10 Morphine Sulfate 2 mg 01/07/25 04:53 01/07/25 17:07 Morphine Sulfate (*Crx) 2 Mg/Ml Inj IV PUSH 2 mg Q4H PRN Administration Pain Rated 4-6 Ondansetron HCl 4 mg 01/06/25 23:06 Ondansetron Inj 4 Mg/2 Ml Vial IV PUSH Q4H PRN Nausea Polyethylene Glycol 17 gm 01/08/25 09:00 Polyethylene Glycol 3350 17 Gm Powd.Pack PO QAM [facility] Radiology Results: ITS Impressions Chest X-Ray 01/06/25 19:21 IMPRESSION: Mild pulmonary vascular congestion without focal infiltrate Abdomen/Pelvis CT 01/06/25 22:03 IMPRESSION: Findings consistent with acute cholecystitis, as detailed above. Significant fecal stasis is also detected, markedly distending the rectum with mural thickening and presacral inflammation. Bibasilar consolidation is also noted, right greater than left. Abdomen Ultrasound 01/06/25 23:14 IMPRESSION: Acute cholecystitis, as detailed above, consistent with previous imaging performed through 90 minutes earlier. Cholecystostomy 01/07/25 18:11 IMPRESSION: 1. Successful ultrasound-guided cholecystostomy tube placement. 2. 20 mL bile was sent for aerobic, anaerobic, and fungal cultures. 3. The catheter will be managed by Dr. Rivera. A catheter cholangiogram may be performed not less than 48 hours after tube placement if clinically indicated to assess cystic duct patency. If cholecystectomy is not eventually performed and the infectious episode has resolved, the tube may be removed over a guidewire, preferably not less than 3 weeks after placement to allow time for a mature catheter tract to form to prevent bile leakage and peritonitis. Labs Labs: Laboratory Results - last 24 hr 01/07/25 01/07/25 01/07/25 10:55 11:55 17:30 WBC RBC Hgb Hct MCV MCH MCHC RDW Plt Count MPV Immature Gran % (Auto) Neut % (Auto) Lymph % (Auto) [place] % (Auto) Eos % (Auto) Baso % (Auto) Lymph # (Auto) [place] # (Auto) Eos # (Auto) Baso # (Auto) Abs Immat Gran (auto) Absolute Neuts (auto) Absolute Nucleated RBC Total Counted Neutrophils % (Manual) Band Neutrophils % Lymphocytes % (Manual) Monocytes % (Manual) Nucleated RBC % Abs Neuts (Manual) Abs Lymphs (Manual) Abs Monocytes (Manual) Platelet Estimate Hypochromasia Anisocytosis Microcytosis [place] Cells Schistocytes PT 14.5 INR 1.1 APTT 35.7 Sodium Potassium Chloride Carbon Dioxide Anion Gap BUN Creatinine Estim Creat Clear Calc Estimated GFR Glucose POC Capillary Glucose 107 H 115 H Calcium Total Bilirubin AST ALT Alkaline Phosphatase Total Protein Albumin 01/08/25 05:16 WBC 9.8 RBC 5.42 Hgb 11.9 L Hct 39.1 L MCV 72.1 L MCH 22.0 L MCHC 30.4 L RDW 17.1 H Plt Count 226 MPV 10.9 H Immature Gran % (Auto) 0.5 Neut % (Auto) 79.3 H Lymph % (Auto) 9.0 L [place] % (Auto) 9.8 H Eos % (Auto) 1.2 Baso % (Auto) 0.2 Lymph # (Auto) 0.88 L [place] # (Auto) 1.0 H Eos # (Auto) 0.1 Baso # (Auto) 0.0 Abs Immat Gran (auto) 0.05 H Absolute Neuts (auto) 7.7 H Absolute Nucleated RBC 0.000 Total Counted 100 Neutrophils % (Manual) 79 H Band Neutrophils % 2 Lymphocytes % (Manual) 10 L Monocytes % (Manual) 9 Nucleated RBC % 0.0 Abs Neuts (Manual) 7.93 H Abs Lymphs (Manual) 0.98 L Abs Monocytes (Manual) 0.88 Platelet Estimate Adequate Hypochromasia 1+ Anisocytosis 2+ Microcytosis 1+ [place] Cells 1+ Schistocytes None seen PT INR APTT Sodium 139 Potassium 4.0 Chloride 105 Carbon Dioxide 27 Anion Gap 7 BUN 22 H Creatinine 1.00 Estim Creat Clear Calc 58 Estimated GFR > 60 Glucose 110 POC Capillary Glucose Calcium 9.6 Total Bilirubin 1.6 H AST 56 ALT 457 H Alkaline Phosphatase 222 H Total Protein 7.0 Albumin 3.2 L Quality VTE Prophylaxis VTE prophylaxis: mechanical ordered
[2025-01-08] MEDS: polyethylene glycoL 3350 17 GM POWD.PACK PO (10:29)
--- NOTE | 2025-01-08 10:44 | WPDPN ---
Progress Note: A&P Assessment and Plan (1) Acute cholecystitis: Code(s): K81.0 - Acute cholecystitis Status: Acute Assessment and Plan: Improving with percutaneous placement of percutaneously placed cholecystostomy tube in Radiology to decompress the gallbladder. The tube is freely draining nonpurulent and nonbloody bile. Culture results on the bile is pending. Continue with IV antibiotics. We will go ahead and start him on clear liquids and advanced as tolerated. (2) Transaminitis: Code(s): R74.01 - Elevation of levels of liver transaminase levels Status: Acute Assessment and Plan: Total bilirubin and AST, ALT, and alkaline phosphatase are all decreasing this morning. Subjective Date/time seen: 01/08/25 10:44 Interval history: Patient is doing better today. Less right upper quadrant pain. He wants to have something to drink. He had a cholecystostomy tube placed under CT guidance in Radiology yesterday. There is nonpurulent and nonbloody bile draining from the tube this morning. Exam GI: Other: Abdomen is soft and nondistended. Right upper quadrant cholecystostomy tube in place. Dressing is dry. Nonpurulent and nonbloody bile is draining freely into the bag from the drain. Objective Data Vital Signs Vital Signs: Vital Signs - 24 hr 01/07/25 13:58 01/07/25 20:00 01/07/25 20:14 Temperature 36.4 C L 36.5 C Pulse Rate 79 86 Respiratory Rate 18 18 Blood Pressure 139/88 141/68 H Pulse Oximetry 98 98 Oxygen Delivery Room Air 01/08/25 05:02 01/08/25 08:20 Temperature 36.9 C Pulse Rate 79 Respiratory Rate 17 Blood Pressure 124/81 Pulse Oximetry 100 Oxygen Delivery Room Air Intake/Output Intake/Output: Intake & Output 01/05/25 01/06/25 01/07/25 01/08/25 23:59 23:59 23:59 23:59 Intake Total 1000 200 100 Output Total 80 60 Balance 920 140 100 Meds/Results Medications: Active Medications Generic Name Dose Route Start Last Admin Trade Name Freq PRN Reason Stop Dose Admin Piperacillin/Tazobactam/Dextrose 3.375 gm in 50 mls @ 100 mls/hr 01/07/25 05:00 01/08/25 10:28 Zosyn 3.375 Gm/Ns 50 Ml IVPB 100 mls/hr Q6H EMERSON Administration Lactated Ringer's 1,000 mls @ 75 mls/hr 01/08/25 09:50 Lr - Lactated Ringers Iv IV CONT .[id number] EMERSON Morphine Sulfate 4 mg 01/06/25 23:06 Morphine Sulfate (*Crx) 4 Mg/Ml Inj IV PUSH Q2H PRN Pain Rated 7-10 Morphine Sulfate 2 mg 01/07/25 04:53 01/07/25 17:07 Morphine Sulfate (*Crx) 2 Mg/Ml Inj IV PUSH 2 mg Q4H PRN Administration Pain Rated 4-6 Ondansetron HCl 4 mg 01/06/25 23:06 Ondansetron Inj 4 Mg/2 Ml Vial IV PUSH Q4H PRN Nausea Polyethylene Glycol 17 gm 01/08/25 09:00 01/08/25 10:29 Polyethylene Glycol 3350 17 Gm Powd.Pack PO 17 gm QAM EMERSON Administration Radiology Results: ITS Impressions Chest X-Ray 01/06/25 19:21 IMPRESSION: Mild pulmonary vascular congestion without focal infiltrate Abdomen/Pelvis CT 01/06/25 22:03 IMPRESSION: Findings consistent with acute cholecystitis, as detailed above. Significant fecal stasis is also detected, markedly distending the rectum with mural thickening and presacral inflammation. Bibasilar consolidation is also noted, right greater than left. Abdomen Ultrasound 01/06/25 23:14 IMPRESSION: Acute cholecystitis, as detailed above, consistent with previous imaging performed through 90 minutes earlier. Cholecystostomy 01/07/25 18:11 IMPRESSION: 1. Successful ultrasound-guided cholecystostomy tube placement. 2. 20 mL bile was sent for aerobic, anaerobic, and fungal cultures. 3. The catheter will be managed by Dr. Rivera. A catheter cholangiogram may be performed not less than 48 hours after tube placement if clinically indicated to assess cystic duct patency. If cholecystectomy is not eventually performed and the infectious episode has resolved, the tube may be removed over a guidewire, preferably not less than 3 weeks after placement to allow time for a mature catheter tract to form to prevent bile leakage and peritonitis. Labs Labs: Laboratory Results - last 24 hr 01/07/25 01/07/25 01/07/25 10:55 11:55 17:30 WBC RBC Hgb Hct MCV MCH MCHC RDW Plt Count MPV Immature Gran % (Auto) Neut % (Auto) Lymph % (Auto) [place] % (Auto) Eos % (Auto) Baso % (Auto) Lymph # (Auto) [place] # (Auto) Eos # (Auto) Baso # (Auto) Abs Immat Gran (auto) Absolute Neuts (auto) Absolute Nucleated RBC Total Counted Neutrophils % (Manual) Band Neutrophils % Lymphocytes % (Manual) Monocytes % (Manual) Nucleated RBC % Abs Neuts (Manual) Abs Lymphs (Manual) Abs Monocytes (Manual) Platelet Estimate Hypochromasia Anisocytosis Microcytosis Diann Cells Schistocytes PT 14.5 INR 1.1 APTT 35.7 Sodium Potassium Chloride Carbon Dioxide Anion Gap BUN Creatinine Estim Creat Clear Calc Estimated GFR Glucose POC Capillary Glucose 107 H 115 H Calcium Total Bilirubin AST ALT Alkaline Phosphatase Total Protein Albumin 01/08/25 05:16 WBC 9.8 RBC 5.42 Hgb 11.9 L Hct 39.1 L MCV 72.1 L MCH 22.0 L MCHC 30.4 L RDW 17.1 H Plt Count 226 MPV 10.9 H Immature Gran % (Auto) 0.5 Neut % (Auto) 79.3 H Lymph % (Auto) 9.0 L [place] % (Auto) 9.8 H Eos % (Auto) 1.2 Baso % (Auto) 0.2 Lymph # (Auto) 0.88 L [place] # (Auto) 1.0 H Eos # (Auto) 0.1 Baso # (Auto) 0.0 Abs Immat Gran (auto) 0.05 H Absolute Neuts (auto) 7.7 H Absolute Nucleated RBC 0.000 Total Counted 100 Neutrophils % (Manual) 79 H Band Neutrophils % 2 Lymphocytes % (Manual) 10 L Monocytes % (Manual) 9 Nucleated RBC % 0.0 Abs Neuts (Manual) 7.93 H Abs Lymphs (Manual) 0.98 L Abs Monocytes (Manual) 0.88 Platelet Estimate Adequate Hypochromasia 1+ Anisocytosis 2+ Microcytosis 1+ Diann Cells 1+ Schistocytes None seen PT INR APTT Sodium 139 Potassium 4.0 Chloride 105 Carbon Dioxide 27 Anion Gap 7 BUN 22 H Creatinine 1.00 Estim Creat Clear Calc 58 Estimated GFR > 60 Glucose 110 POC Capillary Glucose Calcium 9.6 Total Bilirubin 1.6 H AST 56 ALT 457 H Alkaline Phosphatase 222 H Total Protein 7.0 Albumin 3.2 L
[2025-01-08] MEDS: LACTATED RINGERS 1,000 ML 75 ML IV CONT ×2 (11:04→22:44)
--- NOTE | 2025-01-08 13:56 | PCSTNOTE ---
Please refer to the Bedside Swallow Evaluation in the EMR. Please note, silent aspiration cannot be ruled out at bedside.
[2025-01-08 14:00] VITALS: BP 112/63; PULSE 62; RESP 18; TEMP 36.8; O2SAT 100
[2025-01-08 20:00] VITALS: PULSE 62; RESP 18; O2SAT 100
[2025-01-08] MEDS: levETIRAcetam 500 MG TABLET 1000 MG PO (20:10)
[2025-01-08 22:00] VITALS: BP 114/62; PULSE 57; RESP 20; TEMP 36.1; O2SAT 100
[2025-01-09] VITALS (7 sets, daily range): BP systolic 105–176; BP diastolic 73–98; PULSE 40–68; RESP 18–20; TEMP 36.2–37; O2SAT 100
[2025-01-09] MEDS: PIPERACILLN/TAZ 3.375GM/NS50ML 3.375 GM/50 ML BAG IVPB ×4 (05:34→22:55)
[2025-01-09 06:03] LABS: Basophils Percent Auto 0.2 % (0.2-1.2); Eosinophils Absolute Auto 0.4 K/mm3 (0-0.3); Eosinophils Percent Auto 5.8 % (0-4.4); Hematocrit 36.6 % (42.0-52.0); Hemoglobin 11.2 g/dL (14.0-18.0); Immature Granulocyte Absolute 0.03 K/mm3 (0.00-0.031); Immature Granulocyte Percent A 0.5 % (0-0.5); Lymphocytes Absolute Auto 0.84 K/mm3 (0.9-3.2); Mean Corpuscular HGB Conc 30.6 g/dl (32-36); Mean Corpuscular Hemoglobin 22.4 pg (26-34); Mean Corpuscular Volume 73.1 fl (80-100); Mean Platelet Volume 11.4 fl (7.4-10.4); Monocytes Absolute Auto 0.6 K/mm3 (0.1-0.6); Monocytes Percent Auto 10.5 % (2.6-8.5); Neutrophils Absolute Auto 4.1 K/mm3 (1.3-6.7); Platelet Count Result 188 k/mm3 (150-375); Red Blood Count 5.01 M/mm3 (4.6-6.20); Red Cell Distribution Width 17.2 % (11.5-14.5)
[2025-01-09 06:14] LABS: Alanine Aminotransferase 296 U/L (6-50); Albumin Level 2.9 g/dL (3.5-5.1); Alkaline Phosphatase 228 U/L (38-126); Anion Gap 6 mmol/L (4-12); Aspartate Amino Transferase 43 U/L (17-59); Blood Urea Nitrogen 16 mg/dL (9-20); Calcium 8.9 mg/dL (8.4-10.2); Carbon Dioxide 24 mmol/L (22-30); Chloride 105 mmol/L (98-107); Estimated CRCL calculation 79 ml/min; Estimated Glomerular Filt Rate > 60; Glucose 107 mg/dL (65-110); Potassium 3.5 mmol/L (3.4-5.0); Sodium 135 mmol/L (137-145)
[2025-01-09 06:56] LABS: Platelet Estimate Adequate (Adequate)
[2025-01-09 07:01] LABS: Anisocytosis 1+; Schistocytes None Seen
[2025-01-09 07:02] LABS: Hypochromasia 1+; Microcytosis 1+ (NORMAL)
[2025-01-09] MEDS: levETIRAcetam 500 MG TABLET 1000 MG PO ×2 (10:26→20:35)
[2025-01-09] MEDS: FUROSEMIDE 20 MG TABLET PO (10:26)
[2025-01-09] MEDS: FLUoxetine HCL 20 MG CAPSULE PO (10:26)
[2025-01-09] MEDS: ASPIRIN 81 MG ENTERIC TABLET PO (10:26)
[2025-01-09] MEDS: PANTOPRAZOLE 40 MG TABLET PO (10:26)
[2025-01-09] MEDS: FERROUS SULFATE 325 MG TABLET DR PO (10:27)
[2025-01-09] MEDS: FAMOTIDINE 20 MG TABLET PO (10:27)
[2025-01-09] MEDS: ENOXAPARIN 40 MG/0.4 ML SYRINGE SUB-Q (10:27)
[2025-01-09] MEDS: TAMSULOSIN HCL 0.4 MG CAPSULE PO (10:27)
[2025-01-09] MEDS: SPIRONOLACTONE 25 MG TABLET PO (10:27)
--- NOTE | 2025-01-09 10:50 | P.PNGS_ITS ---
Progress Note: A&P Assessment and Plan (1) Acute cholecystitis: Code(s): K81.0 - Acute cholecystitis Status: Acute Assessment and Plan: exam benign, continue cholecystostomy tube and antibiotics, low-fat diet, Hep- Lock IV if/when tolerating diet Subjective Subjective Date/Time Seen: 01/09/25 10:50 Interval history: feels pretty good, tolerating full liquid diet, no abdominal pain Review of Systems Review of Systems: All systems reviewed & are unremarkable except as noted in HPI and below Exam Const: General: cooperative, comfortable, no acute distress and ill appearing Resp: Auscultation: clear to auscultation bilaterally Cardio: Rate: regular rate Rhythm: regular rhythm GI: Inspection: normal to inspection and non-distended GI Palp: No abdominal tenderness, Yes Soft to palpation, No Guarding due to palpation present (GI) and No Rigid due to palpation Other: perc cholecystostomy tube draining bilious fluid Objective Data Vital Signs Vital Signs: Vital Signs - 24 hr 01/08/25 14:00 01/08/25 20:00 01/08/25 22:00 Temperature 36.8 C 36.1 C L Pulse Rate 62 62 57 L Respiratory Rate 18 18 20 Blood Pressure 112/63 114/62 Pulse Oximetry 100 100 100 Oxygen Delivery Room Air 01/09/25 06:00 Temperature 36.2 C L Pulse Rate 68 Respiratory Rate 20 Blood Pressure 176/98 H Pulse Oximetry 100 Oxygen Delivery Intake/Output Intake/Output: Intake & Output 01/06/25 01/07/25 01/08/25 01/09/25 23:59 23:59 23:59 23:59 Intake Total 4230 421 7713 1250 Output Total 80 60 40 Balance 503 906 1400 1250 Meds/Results Medications: Active Medications Generic Name Dose Route Start Last Admin Trade Name Freq PRN Reason Stop Dose Admin Aspirin 81 mg 01/09/25 09:00 01/09/25 10:26 Aspirin 81 Mg Enteric Tablet PO 81 mg DAILY EMERSON Administration Enoxaparin Sodium 40 mg 01/09/25 09:00 01/09/25 10:27 Enoxaparin 40 Mg/0.4 Ml Syringe SUB-Q 40 mg DAILY EMERSON Administration Famotidine 20 mg 01/09/25 09:00 01/09/25 10:27 Famotidine 20 Mg Tablet PO 20 mg DAILY EMERSON Administration Ferrous Sulfate 325 mg 01/09/25 09:00 01/09/25 10:27 Ferrous Sulfate [address] PO 325 mg DAILY EMERSON Administration Fluoxetine HCl 20 mg 01/09/25 09:00 01/09/25 10:26 Fluoxetine Hcl 20 Mg Capsule PO 20 mg DAILY EMERSON Administration Furosemide 20 mg 01/09/25 09:00 01/09/25 10:26 Furosemide 20 Mg Tablet PO 20 mg QAM EMERSON Administration Piperacillin/Tazobactam/Dextrose 3.375 gm in 50 mls @ 100 mls/hr 01/07/25 05:00 01/09/25 10:25 Zosyn 3.375 Gm/Ns 50 Ml IVPB 100 mls/hr Q6H EMERSON Administration Lactated Ringer's 1,000 mls @ 75 mls/hr 01/08/25 09:50 01/08/25 22:44 Lr - Lactated Ringers Iv IV CONT 75 mls/hr .[id number] EMERSON Administration Levetiracetam 1,000 mg 01/08/25 21:00 01/09/25 10:26 Levetiracetam 500 Mg Tablet PO 1,000 mg Q12HR EMERSON Administration Miscellaneous Information 1 each 01/08/25 00:01 01/09/25 10:22 Fluvoxamine 50 Mg Tablet Is Nonformulary, Can Patient Bring From Home? XX 02/07/25 00:00 Not Given CLARIFY EMERSON Morphine Sulfate 4 mg 01/06/25 23:06 Morphine Sulfate (*Crx) 4 Mg/Ml Inj IV PUSH Q2H PRN Pain Rated 7-10 Morphine Sulfate 2 mg 01/07/25 04:53 01/07/25 17:07 Morphine Sulfate (*Crx) 2 Mg/Ml Inj IV PUSH 2 mg Q4H PRN Administration Pain Rated 4-6 Non-Formulary Medication 50 mg 01/08/25 21:00 Fluvoxamine PO 02/07/25 20:59 QHS [facility] Ondansetron HCl 4 mg 01/06/25 23:06 Ondansetron Inj 4 Mg/2 Ml Vial IV PUSH Q4H PRN Nausea Pantoprazole Sodium 40 mg 01/09/25 09:00 01/09/25 10:26 Pantoprazole 40 Mg Tablet PO 40 mg QAM EMERSON Administration Polyethylene Glycol 17 gm 01/08/25 09:00 01/09/25 10:28 Polyethylene Glycol 3350 17 Gm Powd.Pack PO Not Given QAM EMERSON Spironolactone 25 mg 01/09/25 09:00 01/09/25 10:27 Spironolactone 25 Mg Tablet PO 25 mg DAILY EMERSON Administration Tamsulosin HCl 0.4 mg 01/09/25 09:00 01/09/25 10:27 Tamsulosin Hcl 0.4 Mg Capsule PO 0.4 mg DAILY EMERSON Administration Radiology Results: ITS Impressions Chest X-Ray 01/06/25 19:21 IMPRESSION: Mild pulmonary vascular congestion without focal infiltrate Abdomen/Pelvis CT 01/06/25 22:03 IMPRESSION: Findings consistent with acute cholecystitis, as detailed above. Significant fecal stasis is also detected, markedly distending the rectum with mural thickening and presacral inflammation. Bibasilar consolidation is also noted, right greater than left. Abdomen Ultrasound 01/06/25 23:14 IMPRESSION: Acute cholecystitis, as detailed above, consistent with previous imaging performed through 90 minutes earlier. Cholecystostomy 01/07/25 18:11 IMPRESSION: 1. Successful ultrasound-guided cholecystostomy tube placement. 2. 20 mL bile was sent for aerobic, anaerobic, and fungal cultures. 3. The catheter will be managed by Dr. Rivera. A catheter cholangiogram may be performed not less than 48 hours after tube placement if clinically indicated to assess cystic duct patency. If cholecystectomy is not eventually performed and the infectious episode has resolved, the tube may be removed over a guidewire, preferably not less than 3 weeks after placement to allow time for a mature catheter tract to form to prevent bile leakage and peritonitis. Labs Labs: Laboratory Results - last 24 hr 01/09/25 05:55 WBC 6.0 RBC 5.01 Hgb 11.2 L Hct 36.6 L MCV 73.1 L MCH 22.4 L MCHC 30.6 L RDW 17.2 H Plt Count 188 MPV 11.4 H Immature Gran % (Auto) 0.5 Neut % (Auto) 69.0 Lymph % (Auto) 14.0 L [place] % (Auto) 10.5 H Eos % (Auto) 5.8 H Baso % (Auto) 0.2 Lymph # (Auto) 0.84 L [place] # (Auto) 0.6 Eos # (Auto) 0.4 H Baso # (Auto) 0.0 Abs Immat Gran (auto) 0.03 Absolute Neuts (auto) 4.1 Absolute Nucleated RBC 0.000 Band Neutrophils % Not Reportable Nucleated RBC % 0.0 Platelet Estimate Adequate Hypochromasia 1+ Anisocytosis 1+ Microcytosis 1+ Schistocytes None seen Sodium 135 L Potassium 3.5 Chloride 105 Carbon Dioxide 24 Anion Gap 6 BUN 16 Creatinine 0.72 Estim Creat Clear Calc 79 Estimated GFR > 60 Glucose 107 Calcium 8.9 Total Bilirubin 1.0 AST 43 ALT 296 H Alkaline Phosphatase 228 H Total Protein 6.0 L Albumin 2.9 L
--- NOTE | 2025-01-09 12:24 | ECG_ITS ---
Test Date: 2025-01-09 12:52:00 Measurements Intervals [place] Rate: 39 P: 58 [place]: 175 QRS: 0 QRSD: 90 T: -19 QT: 498 QTc: 402 Interpretive Statements SINUS BRADYCARDIA POSSIBLE INFERIOR MYOCARDIAL INFARCTION , OF INDETERMINATE AGE [30 ms Q WAVE IN II/aVF] CRITICAL TEST RESULT Compared to ECG 01/06/2025 19:10:40 SINUS BRADYCARDIA NOW PRESENT Electronically Signed On 01-09-2025 17:40:36 CDT by Michelle Bills M.D.
--- NOTE | 2025-01-09 12:46 | PM.IMPN ---
Progress Note: A&P Assessment and Plan (1) Bradycardia: Code(s): R00.1 - Bradycardia, unspecified Status: Acute Assessment and Plan: Patient HR dropping into the upper 40-50s. EKG obtained showing sinus bradycardia with HR 39. No signs of heart block on review. Patient is not on any beta blockers or medications that would cause bradycardia. - Telemetry ordered - Troponin ordered - Echo ordered - Cardiology consulted, appreciate recommendations (2) Acute cholecystitis: Code(s): K81.0 - Acute cholecystitis Status: Acute Assessment and Plan: Abdomen/pelvis CT: The gallbladder is distended, with mural thickening and surrounding inflammatory change. Consistent with cholecystitis. Not meeting sepsis criteria - IV pain management - IV fluid resuscitation - Antibiotics: Zosyn 3.375 mg every 6 hours started on 01/07 - Blood cultures 01/06: NGTD - Diet: advance as tolerated - Monitor vital signs, I and O's, check stool output, neuro status and patient is a fall risk - Monitor serum electrolytes and CBC - Monitor lactic acid - Consult general surgery for further evaluation, appreciate assistance and recommendation Continue antibiotics S/p US perc cholecystostomy tube placement on 01/[address] Chaney. Bile sent for cultures. Drain with slight blood noted, nonpurulent bile. (3) Transaminitis: Code(s): R74.01 - Elevation of levels of liver transaminase levels Status: Acute Assessment and Plan: LFTs elevated on admission: Tot bili 2, AST 134, ALT 974, alk phos 254. Secondary to acute cholecystitis No ductal dilatation noted on imaging Downtrending. (4) Constipation: Code(s): K59.00 - Constipation, unspecified Status: Acute Assessment and Plan: Abdomen US: Lobulated sludge is identified within the distended gallbladder, consistent with the appearance described on recent CT examination. Pericholecystic fluid is also present along with gallbladder wall thickening measuring almost [address] abdomen/pelvis: Significant fecal stasis is also detected, markedly distending the rectum with mural thickening and presacral inflammation. - Enema performed Has since had 2 bowel movements Resolved. (5) Lung consolidation: Code(s): J18.1 - Lobar pneumonia, unspecified organism Status: Acute Assessment and Plan: Chest XR: Mild pulmonary vascular congestion without focal infiltrate CT abdomen/pelvis: Bibasilar consolidation is also noted, right greater than left. - Swallow study to evaluate for possible aspiration. Unremarkable Remains on room air, denying respiratory symptoms. (6) Heart failure of unknown type: Code(s): I50.9 - Heart failure, unspecified Status: Acute Assessment and Plan: Appears euvolemic, not in acute exacerbation (7) Hypertension: Code(s): I10 - Essential (primary) hypertension Status: Acute Assessment and Plan: Chronic - lasix 20 mg daily - spironolactone 25 mg daily - Blood pressures reviewed and remain stable at this time (8) Psychiatric illness: Code(s): F99 - Mental disorder, not otherwise specified Status: Acute Assessment and Plan: History of depression - Resume fluoxetine 20 mg daily and fluvoxamine 50 mg daily Time Spent With Patient Time with patient: 25 - 35 minutes Subjective Date/time seen: 01/09/25 12:46 Interval history: 64-year-old male with history of stroke, insulin-dependent diabetes, congestive heart failure, hypertension, benign prostatic hyperplasia, gastroesophageal reflux disease, and depression who presented to the hospital via EMS from [facility] for evaluation of weakness and abdominal pain. Patient is pleasant lying comfortably in bed. He states that he is tolerating his diet well and denies any associated nausea/vomiting or abdominal pain. Diet advanced per surgery. He has no other complaints, denying chest pain, shortness a breath, palpitations. Patient RN called reporting low heart rates into the upper 40-50s. EKG obtained, showing HR 39 with sinus rhythm. No noted block. Echo ordered. Cardiology consulted. Review of Systems Review of Systems: All systems reviewed & are unremarkable except as noted in HPI and below Exam Narrative: AF HR 50 RR 20 SpO2 100 BP 105/74 General: male in no acute respiratory distress who is nontoxic appearing, lying semi recumbent in bed. HEENT: Normocephalic. Atraumatic. Extraocular movement intact. Sclera clear and anicteric. No facial asymmetry. Chest: Lungs are clear to auscultation bilaterally. No wheezes or crackles. CV: Heart was bradycardic with regular rhythm. S1/S2. No murmurs, gallops, or rubs. Abd: Abdomen was soft. Nondistended. Positive bowel sounds. Cholecystomy tube in place. Slight tenderness around the tube, drain with bile. No signs of infection. Neuro: Patient is alert. Speech is clear. Objective Data Vital Signs Vital Signs: Vital Signs - 24 hr 01/08/25 14:00 01/08/25 20:00 01/08/25 22:00 Temperature 98.2 F 97.0 F L Pulse Rate 62 62 57 L Respiratory Rate 18 18 20 Blood Pressure 112/63 114/62 Pulse Oximetry 100 100 100 Oxygen Delivery Room Air 01/09/25 06:00 01/09/25 10:25 01/09/25 11:50 Temperature 97.1 F L Pulse Rate 68 50 L Respiratory Rate 20 Blood Pressure 176/98 H 105/74 Pulse Oximetry 100 Oxygen Delivery Room Air Intake/Output Intake/Output: Intake & Output 01/06/25 01/07/25 01/08/25 01/09/25 23:59 23:59 23:59 23:59 Intake Total 1113 444 5720 1250 Output Total 80 60 40 50 Balance 235 514 6577 1200 Meds/Results Medications: Active Medications Generic Name Dose Route Start Last Admin Trade Name Ashwinq PRN Reason Stop Dose Admin Aspirin 81 mg 01/09/25 09:00 01/09/25 10:26 Aspirin 81 Mg Enteric Tablet PO 81 mg DAILY EMERSON Administration Enoxaparin Sodium 40 mg 01/09/25 09:00 01/09/25 10:27 Enoxaparin 40 Mg/0.4 Ml Syringe SUB-Q 40 mg DAILY EMERSON Administration Famotidine 20 mg 01/09/25 09:00 01/09/25 10:27 Famotidine 20 Mg Tablet PO 20 mg DAILY EMERSON Administration Ferrous Sulfate 325 mg 01/09/25 09:00 01/09/25 10:27 Ferrous Sulfate [address] PO 325 mg DAILY EMERSON Administration Fluoxetine HCl 20 mg 01/09/25 09:00 01/09/25 10:26 Fluoxetine Hcl 20 Mg Capsule PO 20 mg DAILY EMERSON Administration Furosemide 20 mg 01/09/25 09:00 01/09/25 10:26 Furosemide 20 Mg Tablet PO 20 mg QAM EMERSON Administration Piperacillin/Tazobactam/Dextrose 3.375 gm in 50 mls @ 100 mls/hr 01/07/25 05:00 01/09/25 10:25 Zosyn 3.375 Gm/Ns 50 Ml IVPB 100 mls/hr Q6H EMERSON Administration Lactated Ringer's 1,000 mls @ 75 mls/hr 01/08/25 09:50 01/08/25 22:44 Lr - Lactated Ringers Iv IV CONT 75 mls/hr .[id number] EMERSON Administration Levetiracetam 1,000 mg 01/08/25 21:00 01/09/25 10:26 Levetiracetam 500 Mg Tablet PO 1,000 mg Q12HR EMERSON Administration Miscellaneous Information 1 each 01/08/25 00:01 01/09/25 10:22 Fluvoxamine 50 Mg Tablet Is Nonformulary, Can Patient Bring From Home? XX 02/07/25 00:00 Not Given CLARIFY EMERSON Morphine Sulfate 4 mg 01/06/25 23:06 Morphine Sulfate (*Crx) 4 Mg/Ml Inj IV PUSH Q2H PRN Pain Rated 7-10 Morphine Sulfate 2 mg 01/07/25 04:53 01/07/25 17:07 Morphine Sulfate (*Crx) 2 Mg/Ml Inj IV PUSH 2 mg Q4H PRN Administration Pain Rated 4-6 Non-Formulary Medication 50 mg 01/08/25 21:00 Fluvoxamine PO 02/07/25 20:59 QHS EMERSON Ondansetron HCl 4 mg 01/06/25 23:06 Ondansetron Inj 4 Mg/2 Ml Vial IV PUSH Q4H PRN Nausea Pantoprazole Sodium 40 mg 01/09/25 09:00 01/09/25 10:26 Pantoprazole 40 Mg Tablet PO 40 mg QAM EMERSON Administration Polyethylene Glycol 17 gm 01/08/25 09:00 01/09/25 10:28 Polyethylene Glycol 3350 17 Gm Powd.Pack PO Not Given QAM EMERSON Spironolactone 25 mg 01/09/25 09:00 01/09/25 10:27 Spironolactone 25 Mg Tablet PO 25 mg DAILY EMERSON Administration Tamsulosin HCl 0.4 mg 01/09/25 09:00 01/09/25 10:27 Tamsulosin Hcl 0.4 Mg Capsule PO 0.4 mg DAILY EMERSON Administration Radiology Results: ITS Impressions Chest X-Ray 01/06/25 19:21 IMPRESSION: Mild pulmonary vascular congestion without focal infiltrate Abdomen/Pelvis CT 01/06/25 22:03 IMPRESSION: Findings consistent with acute cholecystitis, as detailed above. Significant fecal stasis is also detected, markedly distending the rectum with mural thickening and presacral inflammation. Bibasilar consolidation is also noted, right greater than left. Abdomen Ultrasound 01/06/25 23:14 IMPRESSION: Acute cholecystitis, as detailed above, consistent with previous imaging performed through 90 minutes earlier. Cholecystostomy 01/07/25 18:11 IMPRESSION: 1. Successful ultrasound-guided cholecystostomy tube placement. 2. 20 mL bile was sent for aerobic, anaerobic, and fungal cultures. 3. The catheter will be managed by Dr. Rivera. A catheter cholangiogram may be performed not less than 48 hours after tube placement if clinically indicated to assess cystic duct patency. If cholecystectomy is not eventually performed and the infectious episode has resolved, the tube may be removed over a guidewire, preferably not less than 3 weeks after placement to allow time for a mature catheter tract to form to prevent bile leakage and peritonitis. Labs Labs: Laboratory Results - last 24 hr 01/09/25 05:55 WBC 6.0 RBC 5.01 Hgb 11.2 L Hct 36.6 L MCV 73.1 L MCH 22.4 L MCHC 30.6 L RDW 17.2 H Plt Count 188 MPV 11.4 H Immature Gran % (Auto) 0.5 Neut % (Auto) 69.0 Lymph % (Auto) 14.0 L [place] % (Auto) 10.5 H Eos % (Auto) 5.8 H Baso % (Auto) 0.2 Lymph # (Auto) 0.84 L [place] # (Auto) 0.6 Eos # (Auto) 0.4 H Baso # (Auto) 0.0 Abs Immat Gran (auto) 0.03 Absolute Neuts (auto) 4.1 Absolute Nucleated RBC 0.000 Band Neutrophils % Not Reportable Nucleated RBC % 0.0 Platelet Estimate Adequate Hypochromasia 1+ Anisocytosis 1+ Microcytosis 1+ Schistocytes None seen Sodium 135 L Potassium 3.5 Chloride 105 Carbon Dioxide 24 Anion Gap 6 BUN 16 Creatinine 0.72 Estim Creat Clear Calc 79 Estimated GFR > 60 Glucose 107 Calcium 8.9 Total Bilirubin 1.0 AST 43 ALT 296 H Alkaline Phosphatase 228 H Total Protein 6.0 L Albumin 2.9 L Quality VTE Prophylaxis VTE prophylaxis: mechanical ordered
[2025-01-09] MEDS: LACTATED RINGERS 1,000 ML 75 ML IV CONT (14:14)
[2025-01-09 14:21] LABS: Troponin I < 0.012 ng/mL (0.000-0.034)
--- NOTE | 2025-01-09 14:27 | PC.NURSE ---
Defib pads and pacer leads placed at 1426.
[2025-01-09] MEDS: ATROPINE SULFATE 0.4 MG/ML VIAL IV PUSH (14:34)
--- NOTE | 2025-01-09 14:54 | PC.NURSE ---
This patient, Bridger Suarez, was transferred to [facility] on 01/09/25 at 1450. IV saline locked. Personal belongings sent with patient. Report given to VENKAT Cline. Appropriate documentation sent with patient. Left a voicemail on Jose's (pt's brother) phone for him to call back to receive an update on the pt's transfer.
--- NOTE | 2025-01-09 15:01 | PC.NURSE ---
This patient, Bridger Suarez, was received from [facility] on 01/09/25 at 1501. Patient/family oriented to unit policies and routines
--- NOTE | 2025-01-09 16:33 | P.CONCA_ITS ---
Assessment and Plan Assessment and plan (1) Bradycardia: Code(s): R00.1 - Bradycardia, unspecified Status: Acute Plan 1. Sinus bradycardia 2. Acute cholecystitis s/p cholecystostomy tube PLAN: -Heart rate improved with Atropine. Can repeat Atropine if he develops symptomatic bradycardia again. -At this time, does not need urgent temporary transvenous pacer. -Echocardiogram ordered and pending. -Avoid AV cem blocking agents. -Will check TSH level. -Per the hospitalist notes, patient has been given enema for constipation. Enemas can stimulate the vagus nerve, which could lead to bradycardia. Bradycardia has also been reported in cases of acute cholecystitis due to the cardio-biliary reflex. Continue with treatment of acute cholecystitis as per General Surgery and Hospitalist. -Continue to monitor on tele for now. Will follow along. History of Present Illness History of Present Illness Consult date/time: 01/09/25 16:33 Requesting physician: Neena Sawant PA-C Consult reason: Other (Bradycardia ) Reason For Visit: Acute cholecystitis Narrative: We are consulted for bradycardia. 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 Underwent placement of cholecystostomy tube. Noted to have sinus bradycardia today with heart rates as low as the 30s. EKG shows sinus bradycardia without any heart block. Reportedly felt dizzy. Patient tells me he has intermittent dizziness, but unclear if this was at time of bradycardia. Given Atropine per my recommendation with improvement in heart rates to the 50s. Transferred to IMU for closer monitoring. Review of Systems 2 Review of Systems: All systems reviewed & are unremarkable except as noted in HPI and below (HPI) FORMERLY [facility], [facility] Past Medical History Medical History History of benign brain tumor January 2024 found to have a benign brain tumor that was removed Prostate cancer Schizophrenia Depression Anemia Benign prostatic hyperplasia Gastroesophageal reflux disease Hypertension Heart failure of unknown type Cerebrovascular accident Hemorrhage following brain tumor removal with CVA with second surgery Surgical History Surgical History History of brain surgery January of 2024 Family History Family History Other Unknown family medical history Social History Social History Social History: Surrogate medical decision maker: Jose Suarez, brother. Code status: Full code. Smoking status: Never smoker Alcohol intake: never Substance use: never Substance use type: does not use Do You Feel Safe in your Home?: Yes Lack of Transportation: No Lack of Food: Never True Current Housing: I Have Housing Concerned About Future Housing: No Difficulty Paying Gas/Electric Bills: No Difficulty Paying for Meds: No Currently Unemployed: No Education: High School Diploma/GED Difficulty w/ Childcare or Family Care: No Spiritual care concerns: No Meds Home Medications and Allergies Home Medications ?Medication ?Instructions ?Recorded ?Confirmed ?Type ondansetron 4 mg disintegrating 4 mg PO Q8H PRN nausea and 03/23/24 01/07/25 Rx tablet vomiting #15 tabs B-complex with vitamin C 1 tablet PO DAILY 09/29/24 01/07/25 History acetaminophen 500 mg capsule 500 mg PO Q6H PRN fever or pain 09/29/24 01/07/25 History amino acids-protein hydrolysate 15 See Rx Instructions PO BID 09/29/24 01/07/25 History gram-100 kcal/30 mL oral liquid (Pro-Stat Sugar Free) aspirin 81 mg tablet,delayed 81 mg PO DAILY 09/29/24 01/07/25 History release cholecalciferol (vitamin D3) 25 25 mcg PO DAILY 09/29/24 01/07/25 History mcg (1,000 unit) capsule docusate sodium 100 mg capsule 100 mg PO DAILY 09/29/24 01/07/25 History famotidine 20 mg tablet 20 mg PO DAILY 09/29/24 01/07/25 History ferrous sulfate 325 mg (65 mg 325 mg PO DAILY 09/29/24 01/07/25 History iron) tablet fluoxetine 20 mg capsule 20 mg PO DAILY 09/29/24 01/07/25 History fluvoxamine 50 mg tablet 50 mg PO QHS 09/29/24 01/07/25 History furosemide 20 mg tablet 20 mg PO QAM 09/29/24 01/07/25 History insulin glargine 100 unit/mL 10 unit subcut QPM 09/29/24 01/07/25 History subcutaneous solution levetiracetam 1,000 mg tablet 1,000 mg PO Q12H 09/29/24 01/07/25 History lorazepam 0.5 mg tablet 0.5 mg PO Q12H 09/29/24 01/07/25 History naltrexone 50 mg tablet 50 mg PO DAILY 09/29/24 01/07/25 History sennosides 8.6 mg capsule (senna) 8.6 mg PO BID 09/29/24 01/07/25 History spironolactone 25 mg tablet 25 mg PO DAILY 09/29/24 01/07/25 History tamsulosin 0.4 mg capsule 0.4 mg PO DAILY 09/29/24 01/07/25 History Biotene Dry Mouth Oral spray See Rx Instructions .Route Q2H PRN 01/07/25 01/07/25 History dry mouth benzocaine 6 mg-menthol 10 mg 1 keith mucous membrane Q4H PRN sore 01/07/25 01/07/25 History lozenges (Chloraseptic Sore Throat) throat benzonatate 100 mg capsule 100 mg PO TID 01/07/25 01/07/25 History goodsense gel See Rx Instructions .Route Q6H PRN 01/07/25 01/07/25 History pain hydroxyzine HCl 25 mg tablet 25 mg PO Q12H PRN anxiety 01/07/25 01/07/25 History metformin 750 mg tablet,extended 750 mg PO DAILY 01/07/25 01/07/25 History release 24 hr zinc oxide 10 % topical cream 1 applic topical TID PRN skin 01/07/25 01/07/25 History (Secura Protective (zinc oxide)) irritation Allergies Allergy/AdvReac Type Severity Reaction Status Date / Time [facility] Allergy Unknown Verified 09/29/24 13:51 Vital Signs Vital Signs - 24 hr 01/08/25 20:00 01/08/25 22:00 01/09/25 06:00 Temperature 36.1 C L 36.2 C L Pulse Rate 62 57 L 68 Respiratory Rate 18 20 20 Blood Pressure 114/62 176/98 H Pulse Oximetry 100 100 100 Oxygen Delivery Room Air 01/09/25 10:25 01/09/25 11:50 01/09/25 13:00 Temperature Pulse Rate 50 L 44 L Respiratory Rate Blood Pressure 105/74 Pulse Oximetry Oxygen Delivery Room Air 01/09/25 14:00 Temperature 37.0 C Pulse Rate 57 L Respiratory Rate 20 Blood Pressure 126/73 Pulse Oximetry 100 Oxygen Delivery Exam 2 Const: General: comfortable and no acute distress HENMT: Mouth: Yes moist mucous membranes Eyes: General: appearance normal, both eyes and all related structures S clera: sclerae normal Resp: Effort & Inspection: normal respiratory effort Cardio: Rate: bradycardic Rhythm: regular rhythm Heart sounds: no murmurs Neuro: Speech: normal speech Psych: Mental Status: mental status grossly normal Affect: normal affect Results Labs and Meds 01/09/25 05:55 01/09/25 05:55 Lab results: Cardiac Enzymes 01/09/25 01/09/25 Range/Units 05:55 13:40 AST 43 (17-59) U/L Troponin I < 0.012 (0.000-0.034) ng/mL CBC 01/09/25 Range/Units 05:55 WBC 6.0 (4.5-10.0) K/mm3 RBC 5.01 (4.6-6.20) M/mm3 Hgb 11.2 L (14.0-18.0) g/dL Hct 36.6 L (42.0-52.0) % Plt Count 188 (150-375) k/mm3 Lymph # (Auto) 0.84 L (0.9-3.2) K/mm3 Russell # (Auto) 0.6 (0.1-0.6) K/mm3 Eos # (Auto) 0.4 H (0-0.3) K/mm3 Baso # (Auto) 0.0 (0.0-0.1) K/mm3 Comprehensive Metabolic Panel 01/09/25 Range/Units 05:55 Sodium 135 L (137-145) mmol/L Potassium 3.5 (3.4-5.0) mmol/L Chloride 105 (98-107) mmol/L Carbon Dioxide 24 (22-30) mmol/L BUN 16 (9-20) mg/dL Creatinine 0.72 (0.7-1.3) mg/dL Glucose 107 (65-110) mg/dL Calcium 8.9 (8.4-10.2) mg/dL AST 43 (17-59) U/L ALT 296 H (6-50) U/L Alkaline Phosphatase 228 H (38-126) U/L Total Protein 6.0 L (6.3-8.2) g/dL Albumin 2.9 L (3.5-5.1) g/dL Intake and Output 01/09/25 01/09/25 01/09/25 07:59 15:59 23:59 Intake Total 50 2490 Output Total 50 Balance 50 2440 Intake: IV 50 1050 Lactated Ringers 1,000 ml @ 75 1000 mls/hr IV CONT .[id number] [facility] Rx# :[id number] Piperacilln/Mehrdad 3.375GM/Ns50ml 50 50 3.375 gm In 50 ml @ 100 mls/hr IVPB Q6H [facility] Rx#:[id number] Oral 1440 Output: Drain 50 Percutaneous Right Lateral 50 Chest Drain 1 Other: # Incontinent Voids 1 # Urine Diapers 1 Number of Bowel Movements Today 2 3 Patient Weight 01/09/25 23:59 Weight 75.5 kg
[2025-01-10] VITALS (16 sets, daily range): BP systolic 115–140; BP diastolic 61–85; PULSE 40–79; RESP 17–24; TEMP 36.6–36.9; O2SAT 100
[2025-01-10] MEDS: PIPERACILLN/TAZ 3.375GM/NS50ML 3.375 GM/50 ML BAG IVPB ×4 (04:21→23:09)
[2025-01-10] MEDS: LACTATED RINGERS 1,000 ML 75 ML IV CONT ×2 (04:21→17:45)
--- NOTE | 2025-01-10 07:05 | P.PNIM_ITS ---
Progress Note: A&P Assessment and Plan (1) Bradycardia: Code(s): R00.1 - Bradycardia, unspecified Status: Acute Assessment and Plan: Patient HR dropping into the upper 40-50s. EKG obtained showing sinus bradyca rdia with HR 39. No signs of heart block on review. Patient is not on any beta blockers or medications that would cause bradycardia. - Telemetry ordered - Troponin unremarkable - Echo ordered - Cardiology consulted, appreciate recommendations Heart rate improved with atropine x1 on 01/10. Can repeat atropine if symptomatic bradycardia recurs. No urgent temporary transvenous pacer required Avoid AV cem blocking agents TSH level WNL Possible that bradycardia 2/2 patient receiving enema as this can stimulate the vagus nerve. Bradycardia has also been reported in cases of acute cholecystitis due to the cardio-biliary reflex. HR 40s sustaining, remains asymptomatic. (2) Acute cholecystitis: Code(s): K81.0 - Acute cholecystitis Status: Acute Assessment and Plan: Abdomen/pelvis CT: The gallbladder is distended, with mural thickening and surrounding inflammatory change. Consistent with cholecystitis. Not meeting sepsis criteria - IV pain management - IV fluid resuscitation - Antibiotics: Zosyn 3.375 mg every 6 hours started on 01/07 - Blood cultures 01/06: NGTD - Diet: low fat, tolerating well - Monitor vital signs, I and O's, check stool output, neuro status and patient is a fall risk - Monitor serum electrolytes and CBC - Consult general surgery for further evaluation, appreciate assistance and recommendation Continue antibiotics S/p US perc cholecystostomy tube placement on 01/[address] Chaney. Bile sent for cultures. Drain with slight blood noted, nonpurulent bile. (3) Transaminitis: Code(s): R74.01 - Elevation of levels of liver transaminase levels Status: Acute Assessment and Plan: LFTs elevated on admission: Tot bili 2, AST 134, ALT 974, alk phos 254. Secondary to acute cholecystitis No ductal dilatation noted on imaging Downtrending. (4) Constipation: Code(s): K59.00 - Constipation, unspecified Status: Acute Assessment and Plan: Abdomen US: Lobulated sludge is identified within the distended gallbladder, consistent with the appearance described on recent CT examination. Pericholecystic fluid is also present along with gallbladder wall thickening measuring almost [address] abdomen/pelvis: Significant fecal stasis is also detected, markedly distending the rectum with mural thickening and presacral inflammation. - Enema performed Has since had 2 bowel movements Resolved. (5) Lung consolidation: Code(s): J18.1 - Lobar pneumonia, unspecified organism Status: Acute Assessment and Plan: Chest XR: Mild pulmonary vascular congestion without focal infiltrate CT abdomen/pelvis: Bibasilar consolidation is also noted, right greater than left. - Swallow study to evaluate for possible aspiration. Unremarkable Remains on room air, denying respiratory symptoms. (6) Heart failure of unknown type: Code(s): I50.9 - Heart failure, unspecified Status: Acute Assessment and Plan: Appears euvolemic, not in acute exacerbation (7) Hypertension: Code(s): I10 - Essential (primary) hypertension Status: Acute Assessment and Plan: Chronic - lasix 20 mg daily - spironolactone 25 mg daily - Blood pressures reviewed and remain stable at this time, continue to monitor (8) Psychiatric illness: Code(s): F99 - Mental disorder, not otherwise specified Status: Acute Assessment and Plan: History of depression - Resume fluoxetine 20 mg daily and fluvoxamine 50 mg daily Time Spent With Patient Time with patient: 25 - 35 minutes Subjective Date/time seen: 01/10/25 07:05 Interval history: 64-year-old male with history of stroke, insulin-dependent diabetes, congestive heart failure, hypertension, benign prostatic hyperplasia, gastroesophageal reflux disease, and depression who presented to the hospital via EMS from [facility] for evaluation of weakness and abdominal pain. Patient is pleasant lying comfortably in bed. He continues to have sinus bradycardia but denies any dizziness/lightheadedness/increased fatigue at this time. Blood pressures remain stable. Cardiology continues to follow. He is tolerating his diet well and denies any nausea/vomiting or abdominal pain. He has no other complaints denying chest pain, palpitations, and shortness of breath. Review of Systems Review of Systems: All systems reviewed & are unremarkable except as noted in HPI and below Exam Narrative: AF HR60 RR24 SpO2 100 BP 115/75 General: male in no acute respiratory distress who is nontoxic appearing, lying semi recumbent in bed. HEENT: Normocephalic. Atraumatic. Extraocular movement intact. Sclera clear and anicteric. No facial asymmetry. Chest: Lungs are clear to auscultation bilaterally. No wheezes or crackles. CV: Heart was bradycardic with regular rhythm. S1/S2. No murmurs, gallops, or rubs. Abd: Abdomen was soft. Nondistended. Positive bowel sounds. Cholecystomy tube in place. Slight tenderness around the tube, drain with bile and slight blood present. No signs of infection. Neuro: Patient is alert. Speech is clear. Objective Data Vital Signs Vital Signs: Vital Signs - 24 hr 01/09/25 10:25 01/09/25 11:50 01/09/25 13:00 Temperature Pulse Rate 50 L 44 L Respiratory Rate Blood Pressure 105/74 Pulse Oximetry Oxygen Delivery Room Air 01/09/25 14:00 01/09/25 16:00 01/09/25 16:00 Temperature 98.6 F 98.3 F Pulse Rate 57 L 67 67 Respiratory Rate 20 18 Blood Pressure 126/73 132/81 Pulse Oximetry 100 100 Oxygen Delivery 01/09/25 20:00 01/09/25 22:00 01/09/25 22:00 Temperature 98.4 F Pulse Rate 56 L 40 L 47 L Respiratory Rate 18 Blood Pressure 114/79 Pulse Oximetry 100 Oxygen Delivery 01/10/25 00:00 01/10/25 02:00 01/10/25 04:00 Temperature Pulse Rate 41 L 40 L 62 Respiratory Rate Blood Pressure Pulse Oximetry Oxygen Delivery 01/10/25 05:09 01/10/25 05:59 Temperature 97.9 F Pulse Rate 45 L 79 Respiratory Rate 18 Blood Pressure 136/85 Pulse Oximetry 100 Oxygen Delivery Intake/Output Intake/Output: Intake & Output 01/07/25 01/08/25 01/09/25 01/10/25 23:59 23:59 23:59 23:59 Intake Total 200 2525 3010 1200 Output Total 60 40 550 1065 Balance 140 2485 2460 135 Meds/Results Medications: Active Medications Generic Name Dose Route Start Last Admin Trade Name Freq PRN Reason Stop Dose Admin Aspirin 81 mg 01/09/25 09:00 01/09/25 10:26 Aspirin 81 Mg Enteric Tablet PO 81 mg DAILY [facility] Administration Enoxaparin Sodium 40 mg 01/09/25 09:00 01/09/25 10:27 Enoxaparin 40 Mg/0.4 Ml Syringe SUB-Q 40 mg DAILY [facility] Administration Famotidine 20 mg 01/09/25 09:00 01/09/25 10:27 Famotidine 20 Mg Tablet PO 20 mg DAILY [facility] Administration Ferrous Sulfate 325 mg 01/09/25 09:00 01/09/25 10:27 Ferrous Sulfate [address] PO 325 mg DAILY [facility] Administration Fluoxetine HCl 20 mg 01/09/25 09:00 01/09/25 10:26 Fluoxetine Hcl 20 Mg Capsule PO 20 mg DAILY [facility] Administration Furosemide 20 mg 01/09/25 09:00 01/09/25 10:26 Furosemide 20 Mg Tablet PO 20 mg QAM [facility] Administration Piperacillin/Tazobactam/Dextrose 3.375 gm in 50 mls @ 100 mls/hr 01/07/25 05:00 01/10/25 04:21 Zosyn 3.375 Gm/Ns 50 Ml IVPB 100 mls/hr Q6H [facility] Administration Lactated Ringer's 1,000 mls @ 75 mls/hr 01/08/25 09:50 01/10/25 04:21 Lr - Lactated Ringers Iv IV CONT 75 mls/hr .[id number] [facility] Administration Levetiracetam 1,000 mg 01/08/25 21:00 01/09/25 20:35 Levetiracetam 500 Mg Tablet PO 1,000 mg Q12HR [facility] Administration Miscellaneous Information 1 each 01/08/25 00:01 01/09/25 10:22 Fluvoxamine 50 Mg Tablet Is Nonformulary, Can Patient Bring From Home? XX 02/07/25 00:00 Not Given [facility] Morphine Sulfate 4 mg 01/06/25 23:06 Morphine Sulfate (*Crx) 4 Mg/Ml Inj IV PUSH Q2H PRN Pain Rated 7-10 Morphine Sulfate 2 mg 01/07/25 04:53 01/07/25 17:07 Morphine Sulfate (*Crx) 2 Mg/Ml Inj IV PUSH 2 mg Q4H PRN Administration Pain Rated 4-6 Non-Formulary Medication 50 mg 01/08/25 21:00 Fluvoxamine PO 02/07/25 20:59 QHS [facility] Ondansetron HCl 4 mg 01/06/25 23:06 Ondansetron Inj 4 Mg/2 Ml Vial IV PUSH Q4H PRN Nausea Pantoprazole Sodium 40 mg 01/09/25 09:00 01/09/25 10:26 Pantoprazole 40 Mg Tablet PO 40 mg QAM [facility] Administration Perflutren Lipid Microsphere 0 ml 01/09/25 12:55 Perflutren Lipid Microspheres 1.5 Ml Vial Diluted To 10 Ml Total Volume IV PUSH 01/12/25 12:55 ONCE PRN adequate visualization Protocol Polyethylene Glycol 17 gm 01/08/25 09:00 01/09/25 10:28 Polyethylene Glycol 3350 17 Gm Powd.Pack PO Not Given QAM [facility] Spironolactone 25 mg 01/09/25 09:00 01/09/25 10:27 Spironolactone 25 Mg Tablet PO 25 mg DAILY [facility] Administration Tamsulosin HCl 0.4 mg 01/09/25 09:00 01/09/25 10:27 Tamsulosin Hcl 0.4 Mg Capsule PO 0.4 mg DAILY [facility] Administration Radiology Results: ITS Impressions Chest X-Ray 01/06/25 19:21 IMPRESSION: Mild pulmonary vascular congestion without focal infiltrate Abdomen/Pelvis CT 01/06/25 22:03 IMPRESSION: Findings consistent with acute cholecystitis, as detailed above. Significant fecal stasis is also detected, markedly distending the rectum with mural thickening and presacral inflammation. Bibasilar consolidation is also noted, right greater than left. Abdomen Ultrasound 01/06/25 23:14 IMPRESSION: Acute cholecystitis, as detailed above, consistent with previous imaging performed through 90 minutes earlier. Cholecystostomy 01/07/25 18:11 IMPRESSION: 1. Successful ultrasound-guided cholecystostomy tube placement. 2. 20 mL bile was sent for aerobic, anaerobic, and fungal cultures. 3. The catheter will be managed by Dr. Rivera. A catheter cholangiogram may be performed not less than 48 hours after tube placement if clinically indicated to assess cystic duct patency. If cholecystectomy is not eventually performed and the infectious episode has resolved, the tube may be removed over a guidewire, preferably not less than 3 weeks after placement to allow time for a mature catheter tract to form to prevent bile leakage and peritonitis. Labs Labs: Laboratory Results - last 24 hr 01/09/25 01/09/25 05:52 13:40 Troponin I < 0.012 TSH 2.240 Quality VTE Prophylaxis VTE prophylaxis: mechanical ordered
[2025-01-10 08:22] LABS: Hematocrit 38.2 % (42.0-52.0); Hemoglobin 11.5 g/dL (14.0-18.0); Mean Corpuscular HGB Conc 30.1 g/dl (32-36); Mean Platelet Volume 10.9 fl (7.4-10.4); Platelet Count Result 216 k/mm3 (150-375); Red Blood Count 5.23 M/mm3 (4.6-6.20); Red Cell Distribution Width 17.5 % (11.5-14.5); White Blood Count 5.6 K/mm3 (4.5-10.0)
[2025-01-10 08:38] LABS: Alanine Aminotransferase 235 U/L (6-50); Albumin Level 3.2 g/dL (3.5-5.1); Alkaline Phosphatase 257 U/L (38-126); Anion Gap 6 mmol/L (4-12); Aspartate Amino Transferase 43 U/L (17-59); Bilirubin,Total 0.9 mg/dL (0.2-1.3); Blood Urea Nitrogen 10 mg/dL (9-20); Calcium 9.3 mg/dL (8.4-10.2); Carbon Dioxide 26 mmol/L (22-30); Chloride 105 mmol/L (98-107); Estimated CRCL calculation 65 ml/min; Estimated Glomerular Filt Rate > 60; Glucose 123 mg/dL (65-110); Potassium 3.7 mmol/L (3.4-5.0); Sodium 137 mmol/L (137-145)
[2025-01-10] MEDS: FERROUS SULFATE 325 MG TABLET DR PO (08:58)
[2025-01-10] MEDS: FUROSEMIDE 20 MG TABLET PO (08:58)
[2025-01-10] MEDS: FAMOTIDINE 20 MG TABLET PO (08:58)
[2025-01-10] MEDS: FLUoxetine HCL 20 MG CAPSULE PO (08:58)
[2025-01-10] MEDS: levETIRAcetam 500 MG TABLET 1000 MG PO ×2 (08:58→20:30)
[2025-01-10] MEDS: TAMSULOSIN HCL 0.4 MG CAPSULE PO (08:58)
[2025-01-10] MEDS: ASPIRIN 81 MG ENTERIC TABLET PO (08:59)
[2025-01-10] MEDS: PANTOPRAZOLE 40 MG TABLET PO (08:59)
[2025-01-10] MEDS: ENOXAPARIN 40 MG/0.4 ML SYRINGE SUB-Q (08:59)
[2025-01-10] MEDS: polyethylene glycoL 3350 17 GM POWD.PACK PO (08:59)
[2025-01-10] MEDS: SPIRONOLACTONE 25 MG TABLET PO (09:00)
--- NOTE | 2025-01-10 12:40 | PM.PNGS ---
Progress Note: A&P Assessment and Plan (1) Acute cholecystitis: Code(s): K81.0 - Acute cholecystitis Status: Acute Assessment and Plan: exam benign, continue cholecystostomy tube and antibiotics, tolerating low-fat diet Subjective Subjective Date/Time Seen: 01/10/25 12:40 Interval history: no acute issues, denies any abdominal pain Review of Systems Review of Systems: All systems reviewed & are unremarkable except as noted in HPI and below Exam Const: General: cooperative, comfortable, no acute distress and confusion Resp: Auscultation: clear to auscultation bilaterally Cardio: Rate: regular rate Rhythm: regular rhythm GI: Inspection: normal to inspection and non-distended GI Palp: No abdominal tenderness and Yes Soft to palpation Other: cholecystostomy tube with bloody tinged bilious drainage Objective Data Vital Signs Vital Signs: Vital Signs - 24 hr 01/09/25 13:00 01/09/25 14:00 01/09/25 16:00 Temperature 37.0 C 36.8 C Pulse Rate 44 L 57 L 67 Respiratory Rate 20 18 Blood Pressure 126/73 132/81 Pulse Oximetry 100 100 Oxygen Delivery 01/09/25 16:00 01/09/25 20:00 01/09/25 22:00 Temperature 36.9 C Pulse Rate 67 56 L 40 L Respiratory Rate 18 Blood Pressure 114/79 Pulse Oximetry 100 Oxygen Delivery 01/09/25 22:00 01/10/25 00:00 01/10/25 02:00 Temperature Pulse Rate 47 L 41 L 40 L Respiratory Rate Blood Pressure Pulse Oximetry Oxygen Delivery 01/10/25 04:00 01/10/25 05:09 01/10/25 05:59 Temperature 36.6 C Pulse Rate 62 45 L 79 Respiratory Rate 18 Blood Pressure 136/85 Pulse Oximetry 100 Oxygen Delivery 01/10/25 07:48 01/10/25 08:00 01/10/25 08:00 Temperature 36.9 C Pulse Rate 44 L 44 L 44 L Respiratory Rate 20 20 Blood Pressure 138/71 Pulse Oximetry 100 100 Oxygen Delivery Room Air 01/10/25 10:00 01/10/25 11:41 01/10/25 11:41 Temperature Pulse Rate 44 L 44 L 44 L Respiratory Rate 20 Blood Pressure Pulse Oximetry 100 Oxygen Delivery Room Air 01/10/25 12:21 Temperature 36.7 C Pulse Rate 60 Respiratory Rate 24 H Blood Pressure 115/75 Pulse Oximetry 100 Oxygen Delivery Intake/Output Intake/Output: Intake & Output 01/07/25 01/08/25 01/09/25 01/10/25 23:59 23:59 23:59 23:59 Intake Total 200 2525 3010 1200 Output Total 60 40 550 2065 Balance 140 2485 2460 -865 Meds/Results Medications: Active Medications Generic Name Dose Route Start Last Admin Trade Name Freq PRN Reason Stop Dose Admin Aspirin 81 mg 01/09/25 09:00 01/10/25 08:59 Aspirin 81 Mg Enteric Tablet PO 81 mg DAILY EMERSON Administration Enoxaparin Sodium 40 mg 01/09/25 09:00 01/10/25 08:59 Enoxaparin 40 Mg/0.4 Ml Syringe SUB-Q 40 mg DAILY EMERSON Administration Famotidine 20 mg 01/09/25 09:00 01/10/25 08:58 Famotidine 20 Mg Tablet PO 20 mg DAILY EMERSON Administration Ferrous Sulfate 325 mg 01/09/25 09:00 01/10/25 08:58 Ferrous Sulfate [address] PO 325 mg DAILY EMERSON Administration Fluoxetine HCl 20 mg 01/09/25 09:00 01/10/25 08:58 Fluoxetine Hcl 20 Mg Capsule PO 20 mg DAILY EMERSON Administration Furosemide 20 mg 01/09/25 09:00 01/10/25 08:58 Furosemide 20 Mg Tablet PO 20 mg QAM EMERSON Administration Piperacillin/Tazobactam/Dextrose 3.375 gm in 50 mls @ 100 mls/hr 01/07/25 05:00 01/10/25 04:21 Zosyn 3.375 Gm/Ns 50 Ml IVPB 100 mls/hr Q6H EMERSON Administration Lactated Ringer's 1,000 mls @ 75 mls/hr 01/08/25 09:50 01/10/25 04:21 Lr - Lactated Ringers Iv IV CONT 75 mls/hr .[id number] EMERSON Administration Levetiracetam 1,000 mg 01/08/25 21:00 01/10/25 08:58 Levetiracetam 500 Mg Tablet PO 1,000 mg Q12HR EMERSON Administration Miscellaneous Information 1 each 01/08/25 00:01 01/09/25 10:22 Fluvoxamine 50 Mg Tablet Is Nonformulary, Can Patient Bring From Home? XX 04/20/25 00:00 Not Given CLARIFY EMERSON Morphine Sulfate 4 mg 01/06/25 23:06 Morphine Sulfate (*Crx) 4 Mg/Ml Inj IV PUSH Q2H PRN Pain Rated 7-10 Morphine Sulfate 2 mg 01/07/25 04:53 01/07/25 17:07 Morphine Sulfate (*Crx) 2 Mg/Ml Inj IV PUSH 2 mg Q4H PRN Administration Pain Rated 4-6 Non-Formulary Medication 50 mg 01/08/25 21:00 Fluvoxamine PO 02/07/25 20:59 QHS EMERSON Ondansetron HCl 4 mg 01/06/25 23:06 Ondansetron Inj 4 Mg/2 Ml Vial IV PUSH Q4H PRN Nausea Pantoprazole Sodium 40 mg 01/09/25 09:00 01/10/25 08:59 Pantoprazole 40 Mg Tablet PO 40 mg QAM EMERSON Administration Perflutren Lipid Microsphere 0 ml 01/09/25 12:55 Perflutren Lipid Microspheres 1.5 Ml Vial Diluted To 10 Ml Total Volume IV PUSH 01/12/25 12:55 ONCE PRN adequate visualization Protocol Polyethylene Glycol 17 gm 01/08/25 09:00 01/10/25 08:59 Polyethylene Glycol 3350 17 Gm Powd.Pack PO 17 gm QAM EMERSON Administration Spironolactone 25 mg 01/09/25 09:00 01/10/25 09:00 Spironolactone 25 Mg Tablet PO 25 mg DAILY EMERSON Administration Tamsulosin HCl 0.4 mg 01/09/25 09:00 01/10/25 08:58 Tamsulosin Hcl 0.4 Mg Capsule PO 0.4 mg DAILY EMERSON Administration Radiology Results: ITS Impressions Chest X-Ray 01/06/25 19:21 IMPRESSION: Mild pulmonary vascular congestion without focal infiltrate Abdomen/Pelvis CT 01/06/25 22:03 IMPRESSION: Findings consistent with acute cholecystitis, as detailed above. Significant fecal stasis is also detected, markedly distending the rectum with mural thickening and presacral inflammation. Bibasilar consolidation is also noted, right greater than left. Abdomen Ultrasound 01/06/25 23:14 IMPRESSION: Acute cholecystitis, as detailed above, consistent with previous imaging performed through 90 minutes earlier. Cholecystostomy 01/07/25 18:11 IMPRESSION: 1. Successful ultrasound-guided cholecystostomy tube placement. 2. 20 mL bile was sent for aerobic, anaerobic, and fungal cultures. 3. The catheter will be managed by Dr. Rivera. A catheter cholangiogram may be performed not less than 48 hours after tube placement if clinically indicated to assess cystic duct patency. If cholecystectomy is not eventually performed and the infectious episode has resolved, the tube may be removed over a guidewire, preferably not less than 3 weeks after placement to allow time for a mature catheter tract to form to prevent bile leakage and peritonitis. Labs Labs: Laboratory Results - last 24 hr 01/09/25 01/09/25 01/10/25 05:52 13:40 08:01 WBC 5.6 RBC 5.23 Hgb 11.5 L Hct 38.2 L MCV 73.0 L MCH 22.0 L MCHC 30.1 L RDW 17.5 H Plt Count 216 MPV 10.9 H Sodium 137 Potassium 3.7 Chloride 105 Carbon Dioxide 26 Anion Gap 6 BUN 10 D Creatinine 0.88 Estim Creat Clear Calc 65 Estimated GFR > 60 Glucose 123 H Calcium 9.3 Total Bilirubin 0.9 AST 43 ALT 235 H Alkaline Phosphatase 257 H Troponin I < 0.012 Total Protein 6.0 L Albumin 3.2 L TSH 2.240
[2025-01-11] VITALS (15 sets, daily range): BP systolic 111–138; BP diastolic 69–87; PULSE 36–57; RESP 16–22; TEMP 36.3–36.8; O2SAT 94–100
--- NOTE | 2025-01-11 | ECHO_ITS ---
Patient Info Name: Bridger Suarez Age: 64 years : 1960 Gender: Male Ht: 66 in Wt: 166 lbs BSA: 1.89 m2 HR: 53 bpm BP: 137 / 81 mmHg Heart Rhythm: Bradycardia Technical Quality: Fair Exam Date: 01/11/2025 8:56 AM Exam Location: Echo Lab Patient Status: Inpatient Admit Date: 01/07/2025 Staff Ordering Physician: Neena Sawant PA-C Orderly: Trina Hagan RDCS Attending Provider: Neena Sawant PA-C Referring Physician: Jese ABRAHAM; Exam Type: CA echo doppler color flow Study Info Indications R00.1 - Bradycardia, unspecified Complete two-dimensional, color flow and Doppler transthoracic echocardiogram is performed. Summary 1. Complete two-dimensional, color flow and Doppler transthoracic echocardiogram is performed. 2. There is normal biventricular size and systolic function. 3. There is no significant valvular abnormalities. 4. There is trace pericardial effusion. Left Ventricle The left ventricle is normal in size and systolic function. The left ventricular ejection fraction is visually estimated to be 55-60%. Left Atria The left atrium is normal size. Right Atria The right atrium is normal size. Atrial Septum The atrial septum is grossly normal. Aortic Valve The aortic valve is trileaflet and opens well. There is no aortic regurgitation. Pulmonic Valve The pulmonic valve is grossly normal. There is trace pulmonic valve regurgitation. Mitral Valve The mitral valve is normal. There is mild mitral regurgitation. Tricuspid Valve The tricuspid valve is normal. There is trace tricuspid regurgitation. Pericardium/Pleural There is trace pericardial effusion. Inferior Vena Cava Normal inferior vena cava with >50% collapse upon inspiration consistent with normal right atrial pressure, 3 mmHg. Aorta The aortic root at the level of the sinus of Valsalva measures 3.3 cm in diameter. Left Ventricular Outflow Tract Name Value Normal LVOT 2D LVOT Diameter 2.0 cm LVOT Doppler LVOT Peak Gradient 5 mmHg LVOT Mean Gradient 2 mmHg LVOT VTI 19 cm LVOT VTI/AV VTI Ratio 0.6 LVOT Stroke Volume 62 ml LVOT CO 2.5 l/min LVOT CI 1.3 l/min/m2 Pulmonic Valve Name Value Normal RVOT Doppler RVOT Peak Gradient 2 mmHg PV Doppler PV Peak Gradient 3 mmHg Mitral Valve Name Value Normal MV Doppler MV Decel Tyrrell 718 cm/s2 MV PHT 43 ms MV Area (PHT) 5.1 cm2 4.0-5.0 MV Diastolic Function MV E Peak Velocity 106 cm/s MV A Peak Velocity 82 cm/s MV E/A 1.3 MV Decel Time 148 ms MV Annular TDI MV E/e' (Septal) 13.3 <=8.0 MV E/e' (Lateral) 11.1 <=8.0 MV E/e' (Average) 12.2 Tricuspid Valve Name Value Normal TV Regurgitation Doppler TR Peak Velocity 205 cm/s TR Peak Gradient 17 mmHg Estimated PAP/RSVP RA Pressure 3 mmHg <=5 PA Systolic Pressure 20 mmHg <36 RV Systolic Pressure 20 mmHg <36 Aorta Name Value Normal Ascending Aorta Ao Root Diameter (MM) 3.9 cm Ao Root Diam Index (MM) 2.1 cm/m2 Aortic Valve Name Value Normal AV Doppler AV Peak Velocity 159 cm/s AV Peak Gradient 10 mmHg AV Mean Gradient 5 mmHg AV VTI 35 cm AV Area (Cont Eq VTI) 1.8 cm2 >=3.0 AV Area (Cont Eq Deangelo) 2.3 cm2 AV Regurgitation 2D LVOT Area 3.2 cm2 Ventricles Name Value Normal LV Dimensions 2D/MM IVS Diastolic Thickness (2D) 0.9 cm 0.6-1.0 LVID Diastole (2D) 4.6 cm 4.2-5.8 LVIW Diastolic Thickness (2D) 0.9 cm 0.6-1.0 LVID Systole (2D) 2.9 cm 2.5-4.0 LVOT Diameter 2.0 cm LV Mass (2D Cubed) 136.30 g 88.00-224.00 LV Mass Index (2D Cubed) 72 g/m2 49-115 Relative Wall Thickness (2D) 0.38 LV Fractional Shortening/Ejection Fraction 2D/MM LV Fractional Shortening (2D) 36 % 25-43 LV EF (2D Teicholz) 66 % 52-72 LV Diastolic Volume (4C MOD) 93 ml LV EF (4C MOD) 58 % LV Diastolic Volume (2C MOD) 79 ml LV EF (2C MOD) 64 % LV Diastolic Volume (BP MOD) 88 ml 62-150 LV Diastolic Volume Index (BP MOD) 47 ml/m2 34-74 LV Systolic Volume (BP MOD) 33 ml 21-61 LV Systolic Volume Index (BP MOD) 18 ml/m2 11-31 LV EF (BP MOD) 62 % 52-72 LV Diastolic Length (4C) 8.4 cm LV Systolic Length (4C) 6.8 cm LV Stroke Volume (4C MOD) 54 ml Atria Name Value Normal LA Dimensions LA Volume (4C A-L) 43 ml LA Volume (BP A-L) 53 ml RA Dimensions RA Area (4C) 15.8 cm2 <=18.0 Report Signatures
[2025-01-11] MEDS: PIPERACILLN/TAZ 3.375GM/NS50ML 3.375 GM/50 ML BAG IVPB (04:25)
[2025-01-11 04:33] LABS: Hematocrit 35.8 % (42.0-52.0); Hemoglobin 10.8 g/dL (14.0-18.0); Mean Corpuscular HGB Conc 30.2 g/dl (32-36); Mean Corpuscular Hemoglobin 21.9 pg (26-34); Mean Corpuscular Volume 72.6 fl (80-100); Mean Platelet Volume 10.5 fl (7.4-10.4); Platelet Count Result 220 k/mm3 (150-375); Red Blood Count 4.93 M/mm3 (4.6-6.20); Red Cell Distribution Width 17.2 % (11.5-14.5); White Blood Count 6.1 K/mm3 (4.5-10.0)
[2025-01-11 04:43] LABS: Alanine Aminotransferase 188 U/L (6-50); Albumin Level 3.1 g/dL (3.5-5.1); Alkaline Phosphatase 226 U/L (38-126); Anion Gap 6 mmol/L (4-12); Aspartate Amino Transferase 43 U/L (17-59); Bilirubin,Total 0.8 mg/dL (0.2-1.3); Blood Urea Nitrogen 8 mg/dL (9-20); Calcium 9.4 mg/dL (8.4-10.2); Carbon Dioxide 27 mmol/L (22-30); Chloride 104 mmol/L (98-107); Estimated CRCL calculation 66 ml/min; Estimated Glomerular Filt Rate > 60; Glucose 127 mg/dL (65-110); Potassium 3.5 mmol/L (3.4-5.0); Sodium 137 mmol/L (137-145)
--- NOTE | 2025-01-11 08:34 | P.PNIM_ITS ---
Progress Note: A&P Assessment and Plan (1) Bradycardia: Code(s): R00.1 - Bradycardia, unspecified Status: Acute Assessment and Plan: Patient HR dropping into the upper 40-50s. EKG obtained showing sinus bradyca rdia with HR 39. No signs of heart block on review. Patient is not on any beta blockers or medications that would cause bradycardia. - Telemetry ordered - Troponin unremarkable - Echo LVEF 55-60% - Cardiology consulted, appreciate recommendations Heart rate improved with atropine x1 on 01/10. Can repeat atropine if symptomatic bradycardia recurs. No urgent temporary transvenous pacer required Avoid AV cem blocking agents TSH level WNL Possible that bradycardia 2/2 patient receiving enema as this can stimulate the vagus nerve. Bradycardia has also been reported in cases of acute cholecystitis due to the cardio-biliary reflex. Patient remains asymptomatic. (2) Acute cholecystitis: Code(s): K81.0 - Acute cholecystitis Status: Acute Assessment and Plan: Abdomen/pelvis CT: The gallbladder is distended, with mural thickening and surrounding inflammatory change. Consistent with cholecystitis. Not meeting sepsis criteria - IV fluid resuscitation - Antibiotics: Zosyn 3.375 mg every 6 hours started on 01/07, discussed with ID pharmacy and transitioned to Levaquin and Flagyl on 01/11 - Blood cultures 01/06: NGTD - Diet: low fat, tolerating well - Monitor vital signs, I and O's, check stool output, neuro status and patient is a fall risk - Monitor serum electrolytes and CBC - Consult general surgery for further evaluation, appreciate assistance and recommendation Continue antibiotics S/p US perc cholecystostomy tube placement on 01/[address] Chaney. Bile sent for cultures. Cholecystostomy tube output diminished over the past 48 hours and drainage appears more bloody than bilious. Cholangiogram: tube in expected position with occluded cystic duct (3) Transaminitis: Code(s): R74.01 - Elevation of levels of liver transaminase levels Status: Acute Assessment and Plan: LFTs elevated on admission: Tot bili 2, AST 134, ALT 974, alk phos 254. Secondary to acute cholecystitis No ductal dilatation noted on imaging Downtrending. (4) Constipation: Code(s): K59.00 - Constipation, unspecified Status: Acute Assessment and Plan: Abdomen US: Lobulated sludge is identified within the distended gallbladder, consistent with the appearance described on recent CT examination. Pericholecystic fluid is also present along with gallbladder wall thickening measuring almost [address] abdomen/pelvis: Significant fecal stasis is also detected, markedly distending the rectum with mural thickening and presacral inflammation. - Enema performed Has since had 2 bowel movements Resolved. (5) Lung consolidation: Code(s): J18.1 - Lobar pneumonia, unspecified organism Status: Acute Assessment and Plan: Chest XR: Mild pulmonary vascular congestion without focal infiltrate CT abdomen/pelvis: Bibasilar consolidation is also noted, right greater than left. - Swallow study to evaluate for possible aspiration. Unremarkable Remains on room air, denying respiratory symptoms. (6) Heart failure of unknown type: Code(s): I50.9 - Heart failure, unspecified Status: Acute Assessment and Plan: Appears euvolemic, not in acute exacerbation (7) Hypertension: Code(s): I10 - Essential (primary) hypertension Status: Acute Assessment and Plan: Chronic - lasix 20 mg daily - spironolactone 25 mg daily - Blood pressures reviewed and remain stable at this time, continue to monitor (8) Psychiatric illness: Code(s): F99 - Mental disorder, not otherwise specified Status: Acute Assessment and Plan: History of depression - Resume fluoxetine 20 mg daily and fluvoxamine 50 mg daily Time Spent With Patient Time with patient: 25 - 35 minutes Subjective Date/time seen: 01/11/25 08:34 Interval history: 64-year-old male with history of stroke, insulin-dependent diabetes, congestive heart failure, hypertension, benign prostatic hyperplasia, gastroesophageal reflux disease, and depression who presented to the hospital via EMS from [facility] for evaluation of weakness and abdominal pain. Patient is pleasant lying comfortably in bed. He continues to be bradycardic however remains asymptomatic. Discussed patient with his nurse at [facility] who states that patient has to her knowledge has not been having any syncopal episodes or dizziness/ lightheadedness complaints. Patient has no complaints at time of assessment denying chest pain, palpitations, nausea/vomiting, abdominal pain, and shortness of breath. Review of Systems Review of Systems: All systems reviewed & are unremarkable except as noted in HPI and below Exam Narrative: AF HR 54 RR 20 SpO2 100 BP 135/87 General: male in no acute respiratory distress who is nontoxic appearing, lying semi recumbent in bed. HEENT: Normocephalic. Atraumatic. Extraocular movement intact. Sclera clear and anicteric. No facial asymmetry. Chest: Lungs are clear to auscultation bilaterally. No wheezes or crackles. CV: Heart was bradycardic with regular rhythm. S1/S2. No murmurs, gallops, or rubs. Abd: Abdomen was soft. Nondistended. Positive bowel sounds. Cholecystomy tube in place. Slight tenderness around the tube, drain with bile and blood present. No signs of infection. Neuro: Patient is alert. Speech is clear. Objective Data Vital Signs Vital Signs: Vital Signs - 24 hr 01/10/25 10:00 01/10/25 11:41 01/10/25 11:41 Temperature Pulse Rate 44 L 44 L 44 L Respiratory Rate 20 Blood Pressure Pulse Oximetry 100 Oxygen Delivery Room Air 01/10/25 12:21 01/10/25 13:43 01/10/25 14:00 Temperature 98.0 F 98.4 F Pulse Rate 60 60 53 L Respiratory Rate 24 H 20 Blood Pressure 115/75 140/61 Pulse Oximetry 100 100 Oxygen Delivery 01/10/25 16:00 01/10/25 16:00 01/10/25 17:33 Temperature Pulse Rate 53 L 53 L 53 L Respiratory Rate 20 Blood Pressure Pulse Oximetry 100 Oxygen Delivery Room Air 01/10/25 20:00 01/10/25 22:00 01/10/25 22:00 Temperature 97.9 F Pulse Rate 43 L 55 L 40 L Respiratory Rate 17 Blood Pressure 130/76 Pulse Oximetry 100 Oxygen Delivery 01/11/25 00:00 01/11/25 02:00 01/11/25 04:00 Temperature Pulse Rate 44 L 36 L 49 L Respiratory Rate Blood Pressure Pulse Oximetry Oxygen Delivery 01/11/25 05:59 01/11/25 06:00 Temperature 97.6 F Pulse Rate 53 L 48 L Respiratory Rate 18 Blood Pressure 137/81 Pulse Oximetry 99 Oxygen Delivery Intake/Output Intake/Output: Intake & Output 01/08/25 01/09/25 01/10/25 01/11/25 23:59 23:59 23:59 23:59 Intake Total 2524 3010 3350 Output Total 40 550 3065 1430 Balance 2485 2460 285 1430 Meds/Results Medications: Active Medications Generic Name Dose Route Start Last Admin Trade Name Freq PRN Reason Stop Dose Admin Aspirin 81 mg 01/09/25 09:00 01/10/25 08:59 Aspirin 81 Mg Enteric Tablet PO 81 mg DAILY EMERSON Administration Enoxaparin Sodium 40 mg 01/09/25 09:00 01/10/25 08:59 Enoxaparin 40 Mg/0.4 Ml Syringe SUB-Q 40 mg DAILY EMERSON Administration Famotidine 20 mg 01/09/25 09:00 01/10/25 08:58 Famotidine 20 Mg Tablet PO 20 mg DAILY EMERSON Administration Ferrous Sulfate 325 mg 01/09/25 09:00 01/10/25 08:58 Ferrous Sulfate [address] PO 325 mg DAILY EMERSON Administration Fluoxetine HCl 20 mg 01/09/25 09:00 01/10/25 08:58 Fluoxetine Hcl 20 Mg Capsule PO 20 mg DAILY EMERSON Administration Furosemide 20 mg 01/09/25 09:00 01/10/25 08:58 Furosemide 20 Mg Tablet PO 20 mg QAM EMERSON Administration Piperacillin/Tazobactam/Dextrose 3.375 gm in 50 mls @ 100 mls/hr 01/07/25 05:00 01/11/25 04:25 Zosyn 3.375 Gm/Ns 50 Ml IVPB 100 mls/hr Q6H EMERSON Administration Lactated Ringer's 1,000 mls @ 75 mls/hr 01/08/25 09:50 01/10/25 17:45 Lr - Lactated Ringers Iv IV CONT 75 mls/hr .[id number] EMERSON Administration Levetiracetam 1,000 mg 01/08/25 21:00 01/10/25 20:30 Levetiracetam 500 Mg Tablet PO 1,000 mg Q12HR EMERSON Administration Miscellaneous Information 1 each 01/08/25 00:01 01/11/25 04:34 Fluvoxamine 50 Mg Tablet Is Nonformulary, Can Patient Bring From Home? XX 0 02/07/25 00:00 Not Given CLARIFY EMERSON Morphine Sulfate 4 mg 01/06/25 23:06 Morphine Sulfate (*Crx) 4 Mg/Ml Inj IV PUSH Q2H PRN Pain Rated 7-10 Morphine Sulfate 2 mg 01/07/25 04:53 01/07/25 17:07 Morphine Sulfate (*Crx) 2 Mg/Ml Inj IV PUSH 2 mg Q4H PRN Administration Pain Rated 4-6 Non-Formulary Medication 50 mg 01/08/25 21:00 Fluvoxamine PO 02/07/25 20:59 QHS EMERSON Ondansetron HCl 4 mg 01/06/25 23:06 Ondansetron Inj 4 Mg/2 Ml Vial IV PUSH Q4H PRN Nausea Pantoprazole Sodium 40 mg 01/09/25 09:00 01/10/25 08:59 Pantoprazole 40 Mg Tablet PO 40 mg QAM EMERSON Administration Perflutren Lipid Microsphere 0 ml 01/09/25 12:55 Perflutren Lipid Microspheres 1.5 Ml Vial Diluted To 10 Ml Total Volume IV PUSH 01/12/25 12:55 ONCE PRN adequate visualization Protocol Polyethylene Glycol 17 gm 01/08/25 09:00 01/10/25 12:44 Polyethylene Glycol 3350 17 Gm Powd.Pack PO Not Given QAM EMERSON Spironolactone 25 mg 01/09/25 09:00 01/10/25 09:00 Spironolactone 25 Mg Tablet PO 25 mg DAILY EMERSON Administration Tamsulosin HCl 0.4 mg 01/09/25 09:00 01/10/25 08:58 Tamsulosin Hcl 0.4 Mg Capsule PO 0.4 mg DAILY EMERSON Administration Radiology Results: ITS Impressions Chest X-Ray 01/06/25 19:21 IMPRESSION: Mild pulmonary vascular congestion without focal infiltrate Abdomen/Pelvis CT 01/06/25 22:03 IMPRESSION: Findings consistent with acute cholecystitis, as detailed above. Significant fecal stasis is also detected, markedly distending the rectum with mural thickening and presacral inflammation. Bibasilar consolidation is also noted, right greater than left. Abdomen Ultrasound 01/06/25 23:14 IMPRESSION: Acute cholecystitis, as detailed above, consistent with previous imaging performed through 90 minutes earlier. Cholecystostomy 01/07/25 18:11 IMPRESSION: 1. Successful ultrasound-guided cholecystostomy tube placement. 2. 20 mL bile was sent for aerobic, anaerobic, and fungal cultures. 3. The catheter will be managed by Dr. Rivera. A catheter cholangiogram may be performed not less than 48 hours after tube placement if clinically indicated to assess cystic duct patency. If cholecystectomy is not eventually performed and the infectious episode has resolved, the tube may be removed over a guidewire, preferably not less than 3 weeks after placement to allow time for a mature catheter tract to form to prevent bile leakage and peritonitis. Labs Labs: Laboratory Results - last 24 hr 01/10/25 01/11/25 08:01 04:04 WBC 6.1 RBC 4.93 Hgb 10.8 L Hct 35.8 L MCV 72.6 L MCH 21.9 L MCHC 30.2 L RDW 17.2 H Plt Count 220 MPV 10.5 H Sodium 137 137 Potassium 3.7 3.5 Chloride 105 104 Carbon Dioxide 26 27 Anion Gap 6 6 BUN 10 D 8 L Creatinine 0.88 0.87 Estim Creat Clear Calc 65 66 Estimated GFR > 60 > 60 Glucose 123 H 127 H Calcium 9.3 9.4 Total Bilirubin 0.9 0.8 AST 43 43 ALT 235 H 188 H Alkaline Phosphatase 257 H 226 H Total Protein 6.0 L 6.0 L Albumin 3.2 L 3.1 L Quality VTE Prophylaxis VTE prophylaxis: mechanical ordered
[2025-01-11] MEDS: FAMOTIDINE 20 MG TABLET PO (10:24)
[2025-01-11] MEDS: FLUoxetine HCL 20 MG CAPSULE PO (10:24)
[2025-01-11] MEDS: ASPIRIN 81 MG ENTERIC TABLET PO (10:24)
[2025-01-11] MEDS: FERROUS SULFATE 325 MG TABLET DR PO (10:25)
[2025-01-11] MEDS: PANTOPRAZOLE 40 MG TABLET PO (10:25)
[2025-01-11] MEDS: TAMSULOSIN HCL 0.4 MG CAPSULE PO (10:25)
[2025-01-11] MEDS: FUROSEMIDE 20 MG TABLET PO (10:25)
[2025-01-11] MEDS: levETIRAcetam 500 MG TABLET 1000 MG PO ×2 (10:25→20:49)
[2025-01-11] MEDS: SPIRONOLACTONE 25 MG TABLET PO (10:25)
[2025-01-11] MEDS: metroNIDAZOLE 500 MG TABLET PO ×2 (13:52→20:49)
[2025-01-11] MEDS: levoFLOXacin 750 MG TABLET PO (13:52)
--- NOTE | 2025-01-11 14:01 | P.PNGS_ITS ---
Progress Note: A&P Assessment and Plan (1) Acute cholecystitis: Code(s): K81.0 - Acute cholecystitis Status: Acute Assessment and Plan: * Treated with antibiotics and percutaneous cholecystostomy tube placement on 01/07/25. Cholecystostomy tube output diminished over the past 48 hours and drainage appears more bloody than bilious. We will order a cholangiogram through the cholecystostomy tube today to check placement. Cultures have been negative to date. He has been transition oral antibiotics and is tolerating a low-fat diet. Plan I have discussed the patient's case and plan of care with Dr. Rivera. Subjective Subjective Date/Time Seen: 01/11/25 14:01 Interval history: Patient pleasantly confused but answers questions appropriately. He denies any abdominal pain or nausea. He does not recall if he ate breakfast. He has no specific complaints at this time other than feeling hungry. Minimal output from cholecystostomy tube over past 48 hours. Exam Const: General: comfortable and no acute distress Orientation/consciousness: confusion GI: Inspection: non-distended GI Palp: Yes Soft to palpation, Yes Tenderness to palpation present (GI) (epigastric area, RUQ near cholecystostomy tube, and RLQ), Yes Guarding due to palpation present (GI) (RUQ) and No Rebound tenderness present Auscultation: normal bowel sounds Other: Cholecystostomy tube with minimal bloody output Objective Data Vital Signs Vital Signs: Vital Signs - 24 hr 01/10/25 16:00 01/10/25 16:00 01/10/25 17:33 Temperature Pulse Rate 53 L 53 L 53 L Respiratory Rate 20 Blood Pressure Pulse Oximetry 100 Oxygen Delivery Room Air 01/10/25 20:00 01/10/25 22:00 01/10/25 22:00 Temperature 97.9 F Pulse Rate 43 L 55 L 40 L Respiratory Rate 17 Blood Pressure 130/76 Pulse Oximetry 100 Oxygen Delivery 01/11/25 00:00 01/11/25 02:00 01/11/25 04:00 Temperature Pulse Rate 44 L 36 L 49 L Respiratory Rate Blood Pressure Pulse Oximetry Oxygen Delivery 01/11/25 05:59 01/11/25 06:00 01/11/25 08:00 Temperature 97.6 F 98.3 F Pulse Rate 53 L 48 L 50 L Respiratory Rate 18 22 H Blood Pressure 137/81 121/76 Pulse Oximetry 99 100 Oxygen Delivery 01/11/25 08:00 01/11/25 08:00 01/11/25 10:00 Temperature Pulse Rate 54 L 54 L 46 L Respiratory Rate 20 Blood Pressure Pulse Oximetry Oxygen Delivery Room Air 01/11/25 11:32 01/11/25 12:00 01/11/25 12:00 Temperature 98.1 F Pulse Rate 54 L 54 L 54 L Respiratory Rate 20 20 Blood Pressure 135/87 Pulse Oximetry 100 Oxygen Delivery Room Air Intake/Output Intake/Output: Intake & Output 01/08/25 01/09/25 01/10/25 01/11/25 23:59 23:59 23:59 23:59 Intake Total 2525 3010 3350 240 Output Total 40 550 3065 1430 Balance 2485 2460 285 -1190 Meds/Results Medications: Active Medications Generic Name Dose Route Start Last Admin Trade Name Freq PRN Reason Stop Dose Admin Aspirin 81 mg 01/09/25 09:00 01/11/25 10:24 Aspirin 81 Mg Enteric Tablet PO 81 mg DAILY EMERSON Administration Enoxaparin Sodium 40 mg 01/09/25 09:00 01/10/25 08:59 Enoxaparin 40 Mg/0.4 Ml Syringe SUB-Q 40 mg DAILY EMERSON Administration Famotidine 20 mg 01/09/25 09:00 01/11/25 10:24 Famotidine 20 Mg Tablet PO 20 mg DAILY EMERSON Administration Ferrous Sulfate 325 mg 01/09/25 09:00 01/11/25 10:25 Ferrous Sulfate [address] PO 325 mg DAILY EMERSON Administration Fluoxetine HCl 20 mg 01/09/25 09:00 01/11/25 10:24 Fluoxetine Hcl 20 Mg Capsule PO 20 mg DAILY EMERSON Administration Furosemide 20 mg 01/09/25 09:00 01/11/25 10:25 Furosemide 20 Mg Tablet PO 20 mg QAM EMERSON Administration Lactated Ringer's 1,000 mls @ 75 mls/hr 01/08/25 09:50 01/10/25 17:45 Lr - Lactated Ringers Iv IV CONT 75 mls/hr .[id number] EMERSON Administration Levetiracetam 1,000 mg 01/08/25 21:00 01/11/25 10:25 Levetiracetam 500 Mg Tablet PO 1,000 mg Q12HR EMERSON Administration Levofloxacin 750 mg 01/11/25 13:00 01/11/25 13:52 Levofloxacin 750 Mg Tablet PO 01/14/25 09:01 750 mg DAILY EMERSON Administration Metronidazole 500 mg 01/11/25 13:00 01/11/25 13:52 Metronidazole 500 Mg Tablet PO 01/15/25 22:01 500 mg Q8HR EMERSON Administration Miscellaneous Information 1 each 01/08/25 00:01 01/11/25 04:34 Fluvoxamine 50 Mg Tablet Is Nonformulary, Can Patient Bring From Home? XX 02/07/25 00:00 Not Given CLARIFY EMERSON Morphine Sulfate 4 mg 01/06/25 23:06 Morphine Sulfate (*Crx) 4 Mg/Ml Inj IV PUSH Q2H PRN Pain Rated 7-10 Morphine Sulfate 2 mg 01/07/25 04:53 01/07/25 17:07 Morphine Sulfate (*Crx) 2 Mg/Ml Inj IV PUSH 2 mg Q4H PRN Administration Pain Rated 4-6 Non-Formulary Medication 50 mg 01/08/25 21:00 Fluvoxamine PO 02/07/25 20:59 QHS EMERSON Ondansetron HCl 4 mg 01/06/25 23:06 Ondansetron Inj 4 Mg/2 Ml Vial IV PUSH Q4H PRN Nausea Pantoprazole Sodium 40 mg 01/09/25 09:00 01/11/25 10:25 Pantoprazole 40 Mg Tablet PO 40 mg QAM EMERSON Administration Perflutren Lipid Microsphere 0 ml 01/09/25 12:55 Perflutren Lipid Microspheres 1.5 Ml Vial Diluted To 10 Ml Total Volume IV PUSH 01/12/25 12:55 ONCE PRN adequate visualization Protocol Polyethylene Glycol 17 gm 01/08/25 09:00 01/10/25 12:44 Polyethylene Glycol 3350 17 Gm Powd.Pack PO Not Given QAM EMERSON Spironolactone 25 mg 01/09/25 09:00 01/11/25 10:25 Spironolactone 25 Mg Tablet PO 25 mg DAILY EMERSON Administration Tamsulosin HCl 0.4 mg 01/09/25 09:00 01/11/25 10:25 Tamsulosin Hcl 0.4 Mg Capsule PO 0.4 mg DAILY EMERSON Administration Radiology Results: ITS Impressions Chest X-Ray 01/06/25 19:21 IMPRESSION: Mild pulmonary vascular congestion without focal infiltrate Abdomen/Pelvis CT 01/06/25 22:03 IMPRESSION: Findings consistent with acute cholecystitis, as detailed above. Significant fecal stasis is also detected, markedly distending the rectum with mural thickening and presacral inflammation. Bibasilar consolidation is also noted, right greater than left. Abdomen Ultrasound 01/06/25 23:14 IMPRESSION: Acute cholecystitis, as detailed above, consistent with previous imaging performed through 90 minutes earlier. Cholecystostomy 01/07/25 18:11 IMPRESSION: 1. Successful ultrasound-guided cholecystostomy tube placement. 2. 20 mL bile was sent for aerobic, anaerobic, and fungal cultures. 3. The catheter will be managed by Dr. Rivera. A catheter cholangiogram may be performed not less than 48 hours after tube placement if clinically indicated to assess cystic duct patency. If cholecystectomy is not eventually performed and the infectious episode has resolved, the tube may be removed over a guidewire, p referably not less than 3 weeks after placement to allow time for a mature catheter tract to form to prevent bile leakage and peritonitis. Labs Labs: Laboratory Results - last 24 hr 01/11/25 04:04 WBC 6.1 RBC 4.93 Hgb 10.8 L Hct 35.8 L MCV 72.6 L MCH 21.9 L MCHC 30.2 L RDW 17.2 H Plt Count 220 MPV 10.5 H Sodium 137 Potassium 3.5 Chloride 104 Carbon Dioxide 27 Anion Gap 6 BUN 8 L Creatinine 0.87 Estim Creat Clear Calc 66 Estimated GFR > 60 Glucose 127 H Calcium 9.4 Total Bilirubin 0.8 AST 43 ALT 188 H Alkaline Phosphatase 226 H Total Protein 6.0 L Albumin 3.1 L
[2025-01-11] MEDS: LACTATED RINGERS 1,000 ML 75 ML IV CONT (19:47)
[2025-01-11] MEDS: ENOXAPARIN 40 MG/0.4 ML SYRINGE SUB-Q (19:47)
[2025-01-11] MEDS: traZODone HCL 50 MG TABLET PO (22:31)
[2025-01-12] VITALS (10 sets, daily range): BP systolic 110–126; BP diastolic 55–78; PULSE 41–68; RESP 16–18; TEMP 36.7–37; O2SAT 98–100
[2025-01-12 05:00] LABS: Hematocrit 35.7 % (42.0-52.0); Hemoglobin 10.7 g/dL (14.0-18.0); Mean Corpuscular Hemoglobin 21.7 pg (26-34); Mean Corpuscular Volume 72.4 fl (80-100); Mean Platelet Volume 10.4 fl (7.4-10.4); Platelet Count Result 240 k/mm3 (150-375); Red Blood Count 4.93 M/mm3 (4.6-6.20); White Blood Count 5.6 K/mm3 (4.5-10.0)
[2025-01-12 05:18] LABS: Alanine Aminotransferase 150 U/L (6-50); Albumin Level 3.1 g/dL (3.5-5.1); Alkaline Phosphatase 210 U/L (38-126); Anion Gap 5 mmol/L (4-12); Aspartate Amino Transferase 42 U/L (17-59); Bilirubin,Total 0.5 mg/dL (0.2-1.3); Blood Urea Nitrogen 6 mg/dL (9-20); Calcium 9.2 mg/dL (8.4-10.2); Carbon Dioxide 27 mmol/L (22-30); Chloride 105 mmol/L (98-107); Estimated CRCL calculation 69 ml/min; Estimated Glomerular Filt Rate > 60; Glucose 114 mg/dL (65-110); Potassium 3.8 mmol/L (3.4-5.0); Sodium 137 mmol/L (137-145)
[2025-01-12] MEDS: metroNIDAZOLE 500 MG TABLET PO ×2 (06:04→14:43)
[2025-01-12] MEDS: polyethylene glycoL 3350 17 GM POWD.PACK PO (08:21)
[2025-01-12] MEDS: levETIRAcetam 500 MG TABLET 1000 MG PO (08:21)
[2025-01-12] MEDS: ENOXAPARIN 40 MG/0.4 ML SYRINGE SUB-Q (08:21)
[2025-01-12] MEDS: ASPIRIN 81 MG ENTERIC TABLET PO (08:22)
[2025-01-12] MEDS: SPIRONOLACTONE 25 MG TABLET PO (08:22)
[2025-01-12] MEDS: FUROSEMIDE 20 MG TABLET PO (08:22)
[2025-01-12] MEDS: FAMOTIDINE 20 MG TABLET PO (08:22)
[2025-01-12] MEDS: levoFLOXacin 750 MG TABLET PO (08:22)
[2025-01-12] MEDS: FERROUS SULFATE 325 MG TABLET DR PO (08:22)
[2025-01-12] MEDS: FLUoxetine HCL 20 MG CAPSULE PO (08:22)
[2025-01-12] MEDS: PANTOPRAZOLE 40 MG TABLET PO (08:22)
[2025-01-12] MEDS: TAMSULOSIN HCL 0.4 MG CAPSULE PO (08:22)
--- NOTE | 2025-01-12 13:02 | P.PNGS_ITS ---
Progress Note: A&P Assessment and Plan (1) Acute cholecystitis: Code(s): K81.0 - Acute cholecystitis Status: Acute Assessment and Plan: * Treated with antibiotics and percutaneous cholecystostomy tube placement on 01/07/25. Cholangiogram through the cholecystostomy tube yesterday showed that it is in correct position within the gallbladder and the cystic duct is occluded. He is surgically stable to discharge back to [facility] today on oral antibiotics. We will have him follow-up in our office with Dr. Rivera in 3 weeks. Care instructions for the cholecystostomy tube were placed in the discharge instructions for the facility. Plan I have discussed the patient's case and plan of care with Dr. Rivera. Subjective Subjective Date/Time Seen: 01/12/25 13:02 Patient reports: tolerating a regular diet and afebrile Interval history: Patient pleasantly confused but answers questions appropriately. He denies any abdominal pain or nausea. No specific complaints at this time. Exam Const: General: comfortable and no acute distress Orienta tion/consciousness: confusion GI: Inspection: non-distended GI Palp: Yes Soft to palpation, Yes Tenderness to palpation present (GI) (RUQ, improved), No Guarding due to palpation present (GI) and No Rebound tenderness present Auscultation: normal bowel sounds Other: Cholecystostomy tube with minimal dark bloody output Objective Data Vital Signs Vital Signs: Vital Signs - 24 hr 01/11/25 14:00 01/11/25 16:00 01/11/25 16:00 Temperature 98.3 F Pulse Rate 41 L 43 L 54 L Respiratory Rate 16 20 Blood Pressure 120/69 Pulse Oximetry 100 Oxygen Delivery Room Air 01/11/25 18:00 01/11/25 19:42 01/11/25 20:00 Temperature 97.4 F L Pulse Rate 42 L 45 L Respiratory Rate 18 Blood Pressure 111/70 Pulse Oximetry 100 Oxygen Delivery Room Air 01/11/25 20:00 01/11/25 22:00 01/11/25 22:00 Temperature 97.4 F L Pulse Rate 44 L 51 L 57 L Respiratory Rate 18 Blood Pressure 138/79 Pulse Oximetry 94 Oxygen Delivery 01/11/25 23:28 01/12/25 00:00 01/12/25 00:21 Temperature 98.6 F Pulse Rate 41 L 41 L Respiratory Rate 18 Blood Pressure 115/66 Pulse Oximetry 98 Oxygen Delivery Room Air 01/12/25 02:00 01/12/25 03:35 01/12/25 04:00 Temperature Pulse Rate 49 L 45 L 42 L Respiratory Rate 18 Blood Pressure Pulse Oximetry 98 Oxygen Delivery Room Air 01/12/25 04:05 01/12/25 06:00 01/12/25 08:00 Temperature 98.0 F 98.5 F Pulse Rate 42 L 41 L 47 L Respiratory Rate 18 16 Blood Pressure 126/74 113/55 L Pulse Oximetry 100 100 Oxygen Delivery 01/12/25 08:00 01/12/25 08:00 01/12/25 10:00 Temperature Pulse Rate 64 64 68 Respiratory Rate 16 Blood Pressure Pulse Oximetry 100 Oxygen Delivery Room Air 01/12/25 12:00 Temperature 98.0 F Pulse Rate 66 Respiratory Rate 18 Blood Pressure 110/78 Pulse Oximetry 100 Oxygen Delivery Intake/Output Intake/Output: Intake & Output 01/09/25 01/10/25 01/11/25 01/12/25 23:59 23:59 23:59 23:59 Intake Total 3010 3350 1920 480 Output Total 550 3065 2230 50 Balance 2460 285 -310 430 Meds/Results Medications: Active Medications Generic Name Dose Route Start Last Admin Trade Name Freq PRN Reason Stop Dose Admin Artificial Tears 1 drop 01/11/25 22:01 Artificial Tears Ophth Soln 15 Ml Bottle EACH EYE QID PRN Dry Eye(s) Aspirin 81 mg 01/09/25 09:00 01/12/25 08:22 Aspirin 81 Mg Enteric Tablet PO 81 mg DAILY EMERSON Administration Enoxaparin Sodium 40 mg 01/09/25 09:00 01/12/25 08:21 Enoxaparin 40 Mg/0.4 Ml Syringe SUB-Q 40 mg DAILY EMERSON Administration Famotidine 20 mg 01/09/25 09:00 01/12/25 08:22 Famotidine 20 Mg Tablet PO 20 mg DAILY EMERSON Administration Ferrous Sulfate 325 mg 01/09/25 09:00 01/12/25 08:22 Ferrous Sulfate [address] PO 325 mg DAILY EMERSON Administration Fluoxetine HCl 20 mg 01/09/25 09:00 01/12/25 08:22 Fluoxetine Hcl 20 Mg Capsule PO 20 mg DAILY EMERSON Administration Furosemide 20 mg 01/09/25 09:00 01/12/25 08:22 Furosemide 20 Mg Tablet PO 20 mg QAM EMERSON Administration Lactated Ringer's 1,000 mls @ 75 mls/hr 01/08/25 09:50 01/11/25 20:50 Lr - Lactated Ringers Iv IV CONT Not Given .[id number] EMERSON Levetiracetam 1,000 mg 01/08/25 21:00 01/12/25 08:21 Levetiracetam 500 Mg Tablet PO 1,000 mg Q12HR EMERSON Administration Levofloxacin 750 mg 01/11/25 13:00 01/12/25 08:22 Levofloxacin 750 Mg Tablet PO 01/14/25 09:01 750 mg DAILY EMERSON Administration Metronidazole 500 mg 01/11/25 13:00 01/12/25 06:04 Metronidazole 500 Mg Tablet PO 01/15/25 22:01 500 mg Q8HR EMERSON Administration Miscellaneous Information 1 each 01/08/25 00:01 01/11/25 04:34 Fluvoxamine 50 Mg Tablet Is Nonformulary, Can Patient Bring From Home? XX 02/07/25 00:00 Not Given CLARIFY EMERSON Non-Formulary Medication 50 mg 01/08/25 21:00 Fluvoxamine PO 02/07/25 20:59 QHS EMERSON Ondansetron HCl 4 mg 01/06/25 23:06 Ondansetron Inj 4 Mg/2 Ml Vial IV PUSH Q4H PRN Nausea Pantoprazole Sodium 40 mg 01/09/25 09:00 01/12/25 08:22 Pantoprazole 40 Mg Tablet PO 40 mg QAM EMERSON Administration Polyethylene Glycol 17 gm 01/08/25 09:00 01/12/25 08:21 Polyethylene Glycol 3350 17 Gm Powd.Pack PO 17 gm QAM EMERSON Administration Spironolactone 25 mg 01/09/25 09:00 01/12/25 08:22 Spironolactone 25 Mg Tablet PO 25 mg DAILY EMERSON Administration Tamsulosin HCl 0.4 mg 01/09/25 09:00 01/12/25 08:22 Tamsulosin Hcl 0.4 Mg Capsule PO 0.4 mg DAILY EMERSON Administration Trazodone HCl 50 mg 01/11/25 22:01 01/11/25 22:31 Trazodone Hcl 50 Mg Tablet PO 50 mg HS PRN Administration Insomnia Radiology Results: ITS Impressions Chest X-Ray 01/06/25 19:21 IMPRESSION: Mild pulmonary vascular congestion without focal infiltrate Abdomen/Pelvis CT 01/06/25 22:03 IMPRESSION: Findings consistent with acute cholecystitis, as detailed above. Significant fecal stasis is also detected, markedly distending the rectum with mural thickening and presacral inflammation. Bibasilar consolidation is also noted, right greater than left. Abdomen Ultrasound 01/06/25 23:14 IMPRESSION: Acute cholecystitis, as detailed above, consistent with previous imaging performed through 90 minutes earlier. Cholecystostomy 01/07/25 18:11 IMPRESSION: 1. Successful ultrasound-guided cholecystostomy tube placement. 2. 20 mL bile was sent for aerobic, anaerobic, and fungal cultures. 3. The catheter will be managed by Dr. Rivera. A catheter cholangiogram may be performed not less than 48 hours after tube placement if clinically indicated to assess cystic duct patency. If cholecystectomy is not eventually performed and the infectious episode has resolved, the tube may be removed over a guidewire, preferably not less than 3 weeks after placement to allow time for a mature catheter tract to form to prevent bile leakage and peritonitis. Cholangiogram 01/11/25 14:57 IMPRESSION: 1. Cholecystostomy tube in expected position in the gallbladder. 2. Occluded cystic duct. Labs Labs: Laboratory Results - last 24 hr 01/12/25 04:00 WBC 5.6 RBC 4.93 Hgb 10.7 L Hct 35.7 L MCV 72.4 L MCH 21.7 L MCHC 30.0 L RDW 17.0 H Plt Count 240 MPV 10.4 Sodium 137 Potassium 3.8 Chloride 105 Carbon Dioxide 27 Anion Gap 5 BUN 6 L Creatinine 0.83 Estim Creat Clear Calc 69 Estimated GFR > 60 Glucose 114 H Calcium 9.2 Total Bilirubin 0.5 AST 42 ALT 150 H Alkaline Phosphatase 210 H Total Protein 6.0 L Albumin 3.1 L
--- NOTE | 2025-01-12 13:31 | P.DS_ITS ---
DS: Admitting Diagnosis Discharge Date 01/12/2025 Admitting Diagnosis Bradycardia Acute cholecystitis Transaminitis Constipation Lung consolidation Heart failure unknown type Hypertension Psychiatric illness DS: Discharge Diagnosis Discharge Diagnosis (1) Bradycardia: Code(s): R00.1 - Bradycardia, unspecified Status: Acute (2) Acute cholecystitis: Code(s): K81.0 - Acute cholecystitis Status: Acute (3) Transaminitis: Code(s): R74.01 - Elevation of levels of liver transaminase levels Status: Acute (4) Constipation: Code(s): K59.00 - Constipation, unspecified Status: Acute (5) Lung consolidation: Code(s): J18.1 - Lobar pneumonia, unspecified organism Status: Acute (6) Heart failure of unknown type: Code(s): I50.9 - Heart failure, unspecified Status: Acute (7) Hypertension: Code(s): I10 - Essential (primary) hypertension Status: Acute (8) Psychiatric illness: Code(s): F99 - Mental disorder, not otherwise specified Status: Acute DS: Summary Hospital Course Reason for hospitalization: Bradycardia Acute cholecystitis Transaminitis Constipation Lung consolidation Heart failure unknown type Hypertension Psychiatric illness Hospital Course: 64-year-old male with history of stroke, insulin-dependent diabetes, congestive heart failure, hypertension, benign prostatic hyperplasia, gastroesophageal reflux disease, and depression who presented to the hospital via EMS from [facility] for evaluation of weakness and abdominal pain. Not meeting sirs criteria on admission. LFTs elevated on admission atTot bili 2, AST 134, ALT 974, alk phos 254. Abdomen/pelvis CT showed the gallbladder is distended, with mural thickening and surrounding inflammatory change. Consistent with cholecystitis. Patient started on antibiotics. Surgery consulted. Patient underwent an US perc cholecystostomy tube placement on 01/[address] Chaney. Bile sent for cultures. LFTs continued to downtrend following procedure. Discussed antibiotics with ID pharmacy and transitioned to Levaquin and Flagyl on 01/11. Cholangiogram obtained and showed that the tube is in correct position within the gallbladder and the cystic duct is occluded. Patient continued to tolerated his diet. Denied nausea/vomiting or increased abdominal pain. Per surgery patient stable to discharge back to [facility] on oral antibiotics and with follow-up in the office with Dr. Rivera in 3 weeks. During admission patient was also noted to have a chest xr that showed ild pulmonary vascular congestion without focal infiltrate. CT abdomen/pelvis showed bibasilar consolidation is also noted, right greater than left. Patient remains on room air and had no other symptoms but findings concerning for aspiration. Speech consulted, swallow study unremarkable. During admission patients HR dropped into the upper 40-50s. EKG obtained showing sinus bradycardia with HR 39. No signs of heart block on review. Patient is not on any beta blockers or medications that would cause bradycardia. Patient was endorsing increased dizziness and was given atropine x1 on 01/10. Cardiology was consulted. Echo showing an LVEF of 55-60%. Per Cardiology no urgent temporary transvenous pacer required. Possible that bradycardia was related to enema from patients constipation on arrival vs cardio-biliary reflex. Patient remained asymptomatic throughout the rest of his admission. At time of discharge patient has no complaints denying chest pain, shortness a breath, palpitations, nausea/vomiting, and abdominal pain. Patient discharged back to his [facility] residential in a stable condition. He is to follow up with surgery as scheduled and his primary care provider in 1 week. Status at Discharge Functional status at discharge: wheelchair bound Time Spent with Patient Time attestation: Total time spent providing and/or coordinating discharge services: Time spent: Greater than 30 minutes Exam Narrative: AF HR 66 RR 18 Spo2 100 BP 110/78 General: male in no acute respiratory distress who is nontoxic appearing, lying semi recumbent in bed. HEENT: Normocephalic. Atraumatic. Extraocular movement intact. Sclera clear and anicteric. No facial asymmetry. Chest: Lungs are clear to auscultation bilaterally. No wheezes or crackles. CV: Heart was bradycardic with regular rhythm. S1/S2. No murmurs, gallops, or rubs. Abd: Abdomen was soft. Nondistended. Positive bowel sounds. Cholecystomy tube in place. Slight tenderness around the tube, drain with bile and blood present. 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 Sensation remains intact. DS: Data Data Completed and Pending Completed studies during hospitalization: Cholangiogram Cholecystostomy Abdominal ultrasound Abdomen pelvis CT Chest x-ray Labs on day of discharge: Labs from last 24 hours 01/12/25 04:00 WBC 5.6 RBC 4.93 Hgb 10.7 L Hct 35.7 L MCV 72.4 L MCH 21.7 L MCHC 30.0 L RDW 17.0 H Plt Count 240 MPV 10.4 Sodium 137 Potassium 3.8 Chloride 105 Carbon Dioxide 27 Anion Gap 5 BUN 6 L Creatinine 0.83 Estim Creat Clear Calc 69 Estimated GFR > 60 Glucose 114 H Calcium 9.2 Total Bilirubin 0.5 AST 42 ALT 150 H Alkaline Phosphatase 210 H Total Protein 6.0 L Albumin 3.1 L Preliminary micro results at discharge 01/07/25 17:11 Anaerobic Culture - Preliminary Gallbladder 01/07/25 16:50 Fungal Culture - Preliminary Bile Discharge Plan Discharge Attending physician on discharge: Minor Hatfield Consulting providers: Todd Rivera; Michelle Bills Discharging Clinician: Neena Sawant Anticipated Discharge Date/Time: 01/12/25 13:10 Patient Disposition: NC Alf/Asst Living Activity: as tolerated Diet: low fat Wound Care Instructions: other - see discharge instructions Discharge Instructions: Discharge disposition: Patient admitted to the hospital for cholecystitis Evaluated by surgery and underwent a cholecystostomy tube placement on 01/07 Continue antibiotics as prescribed Levaquin, course to be completed on 01/14 Flagyl, course to be completed on 01/15 Attached is information on these medications Cholecystostomy tube care: * Empty and record output from drain 1-2 times daily * OK to sponge bathe, keep cholecystostomy tube dry * May remove bandage and clean around drain every 3 days. * Re-apply 4x4 gauze and Tegaderm dressing every 3 days or as needed if soiled Follow-up with Dr. Rivera in 3 weeks in our office. [phone] Call sooner with any surgical conerns. Take medications as prescribed Patient noted to be bradycardic throughout admission Evaluated by cardiology and no intervention required as patient remains asymptomatic Continue to monitor vital signs Monitor blood pressures Take caution while standing, rising, or moving Change positions slowly taking a break between each position change If you standing feel dizzy sit back down and take a break Encouraged to continue with yearly vaccinations Return to the emergency department if he developed sudden shortness of breath, chest pain, nausea, vomiting, upset stomach or intractable diarrhea Return to the emergency department if you develop fever greater than 101.5 Follow-up with the primary care physician within 1-2 weeks Thank you for choosing [facility] for your healthcare needs Patient Instructions: Antibiotic Form, Metronidazole (By mouth), Levofloxacin (By mouth), Cholecystitis (ED), Low Fat Diet (DC), Bradycardia (DC) Patient Language: East Timorese Stand Alone Forms: General Discharge Information Follow-up/Referrals: Todd Rivera MD [Physician] - 3 Weeks Discharge Medications: New metronidazole 500 mg Tablet 500 mg PO Q8HR Qty: 11 0RF levofloxacin 750 mg tablet 750 mg PO DAILY Qty: 2 0RF Continued lorazepam 0.5 mg tablet 0.5 mg PO Q12H insulin glargine 100 unit/mL solution 10 unit subcut QPM aspirin 81 mg tablet,delayed release (DR/EC) 81 mg PO DAILY B-complex with vitamin C Tablet 1 tablet PO DAILY famotidine 20 mg tablet 20 mg PO DAILY ferrous sulfate 325 mg (65 mg iron) tablet 325 mg PO DAILY fluoxetine 20 mg capsule 20 mg PO DAILY furosemide 20 mg tablet 20 mg PO QAM naltrexone 50 mg tablet 50 mg PO DAILY spironolactone 25 mg tablet 25 mg PO DAILY tamsulosin 0.4 mg capsule 0.4 mg PO DAILY cholecalciferol (vitamin D3) 25 mcg (1,000 unit) capsule 25 mcg PO DAILY docusate sodium 100 mg capsule 100 mg PO DAILY levetiracetam 1,000 mg tablet 1,000 mg PO Q12H Pro-Stat Sugar Free 15-100 gram-kcal/30 mL liquid See Rx Instructions PO BID Rx Instructions: 60 ml orally twice a day; senna 8.6 mg capsule 8.6 mg PO BID fluvoxamine 50 mg tablet 50 mg PO QHS acetaminophen 500 mg capsule 500 mg PO Q6H PRN (Reason: fever or pain) benzonatate 100 mg capsule 100 mg PO TID Chloraseptic Sore Throat 6-10 mg lozenge 1 keith mucous membrane Q4H PRN (Reason: sore throat) goodsense gel See Rx Instructions .ROUTE Q6H PRN (Reason: pain) Rx Instructions: apply to arms and legs every 6 hours PRN; apply to arms,legs; Biotene Dry Mouth Oral spray See Rx Instructions .ROUTE Q2H PRN (Reason: dry mouth) Rx Instructions: 2 spray every 2 hours PRN; 2 spray; Secura Protective (zinc oxide) 10 % cream 1 applic topical TID PRN (Reason: skin irritation) hydroxyzine HCl 25 mg tablet 25 mg PO Q12H PRN (Reason: anxiety) metformin 750 mg tablet extended release 24 hr 750 mg PO DAILY Held ondansetron 4 mg tablet,disintegrating 4 mg PO Q8H PRN (Reason: nausea and vomiting) Qty: 15 0RF Hold Instructions: Resume on 01/19/25. Hold until complete antibiotics Date of admission: 01/07/25 10:15 Primary Care Provider: UNKNOWN,DOCTOR Admitting Provider: Willard Romano Attending physician on admission: Neena Sawant Condition: Stable Hospitalist MIPS Heart Failure (Exclusion) Patient has history of Heart Transplant or Left Ventricular Assistive Device?: No IF YES, STOP HERE Heart Failure (Qualifier) Patient has current or prior documentation of LVEF less than or equal to 40%, or mod/servere depressed LVSF?: No IF NO, STOP HERE
--- NOTE | 2025-01-12 16:35 | PC.NURSE ---
Discharge paperwork faxed to [facility]. This RN called report to Yesenia nurse at [facility] and reviewed all discharge instructions with her including medications. Verbalizes understanding at this time. Discussed further with the nurse that the patient discharge instructions were faxed over to the facility and placed in an envelope and will be delivered to the facility with the patient. Verbalizes understanding at this time and denies further questions.
== END 2025-01-12 16:04 | DRG 445 ==
LOC: ANHED 23:05 → ANH3MED 23:46 → ANHIMU 01-09 14:56
PROVIDERS: Emergency Medicine; Internal Medicine; Nurse Practitioner Family; Physician Assistant; Surgery; Admitting Provider Hospitalist; Emergency Provider Emergency Medicine; Visit Provider Student in an Organized Health Care Education/Training Program
DX: K81.0 Acute cholecystitis (principal); I69.351 Hemiplegia and hemiparesis following cerebral infarction affecting right dominant side; I11.0 Hypertensive heart disease with heart failure; I50.9 Heart failure, unspecified; R00.1 Bradycardia, unspecified; E11.9 Type 2 diabetes mellitus without complications; N40.0 Benign prostatic hyperplasia without lower urinary tract symptoms; K21.9 Gastro-esophageal reflux disease without esophagitis; K59.00 Constipation, unspecified; F20.9 Schizophrenia, unspecified; D64.9 Anemia, unspecified; F32.A Depression, unspecified; Z86.011 Personal history of benign neoplasm of the brain; Z85.46 Personal history of malignant neoplasm of prostate; Z99.3 Dependence on wheelchair
CPT/HCPCS: 36415; 47490; 47531; 71045; 74177; 76705; 80053; 81001; 82948; 83605; 83690; 83735; 84145; 84443; 84484; 85025; 85027; 85055; 85610; 85730; 87040; 87070; 87075; 87102; 87205; 87206; 87637; 92610; 93005; 93306; 96361; 96365; 96375; 99285; A9270; C1729; G0378; J0461; J1650; J2270; J2543; J7030; J7120; Q9966; Q9967

== ENCOUNTER 2025-03-08 13:13 | Outpatient (CLI) | payer MEDICARE, MEDICAID, SELFPAY ==
--- NOTE | ~2025-03-08 | XR_ITS ---
EXAMINATION: XR catheter cholangiogram DATE: 03/08/2025 14:20 INDICATION: Acute cholecystitis TECHNIQUE: 2 overhead citrix administrator radiographs were obtained. 5 fluoroscopic images of the right upper quadr ant were obtained during during injection of 5 mL Omnipaque 240 contrast into the patient's existing cholecystostomy tube. The amount of fluoroscopy time used during this procedure was 0.1 minutes. Tota l DAP was 6.9 Gym^2. COMPARISON: 01/11/2025 FINDINGS: Esl Instructional Assistant image demonstrate similar appearance of the percutaneous cholecystostomy tube projecting over t he right upper quadrant. Subsequent images demonstrate a small amount of injected contrast collecting around the distal loop of the catheter. With further contrast injection there was extravasation jun g the catheter tract with small amount of contrast seen extending along the lateral periphery of the liver. IMPRESSION: 1. Occluded cystic duct with only small amount of contrast collecting around the distal loop of the c atheter before contrast extends proximally along the catheter which suggests a small and scarred down gallbladder. Reviewed, dictated and finalized at location A. IMPRESSION: 1. Occluded cystic duct with only small amount of contrast collecting around th e distal loop of the catheter before contrast extends proximally along the cath eter which suggests a small and scarred down gallbladder.
== END 2025-03-08 13:14 | disposition home or self-care (01) ==
PROVIDERS: Visit Provider Surgery
DX: K81.0 Acute cholecystitis (principal); K82.0 Obstruction of gallbladder
CPT/HCPCS: 47531; Q9966

== ENCOUNTER 2025-08-20 13:37 | Emergency (ER) | payer MEDICARE, MEDICAID, SELFPAY ==
--- NOTE | ~2025-08-20 | CT_ITS ---
CT CERVICAL SPINE WITHOUT CONTRAST CLINICAL HISTORY: fall, palomo, on blood thinners Technique: Axial images thoracic inlet to skull base Sagittal and coronal reformats. No contrast CT images acquired with automatic exposure control for dose reduction DLP: 564 mGy-cm Comparison: 07/15/2024 Findings: No acute fracture. Grade 1 anterolisthesis of C3 on 4. Reversal of normal cervical lordosis. Moderate degenerative changes. Ankylosis C6-7. Prevertebral soft tissues within normal limits. Visualized lung apices: Clear. Visualized thyroid: Unremarkable. No enlarged cervical nodes. IMPRESSION: 1. No acute findings. Reviewed, dictated and finalized at location R. IMPRESSION: 1. No acute findings.
--- NOTE | ~2025-08-20 | CT_ITS ---
EXAMINATION: CT brain wo minh, 08/20/2025 14:00 CDT HISTORY: fall, palomo, on blood thinners COMPARISON: No comparisons available. Technique: Axial images obtained of the brain without contrast. One or more of the following dose reduction techniques were used: automated exposure control, adjustment of the mA and/or kV according to patient size, use of iterative reconstruction technique. Findings: There is encephalomalacia noted of the frontal lobes bilaterally and the left anterior temporal lobe with associated craniotomy changes. There is a remote left frontoparietal infarct. No acute infarct or hemorrhage. No midline shift or mass effect. No extra-axial fluid collections. Mastoid air cells unremarkable. Sinuses and orbits unremarkable. No acute fracture. No significant facial or scalp soft tissue swelling evident. No radiopaque foreign body is seen. Impression: 1.No acute intracranial abnormality. Reviewed, dictated and finalized at location P. Impression: 1.No acute intracranial abnormality.
--- NOTE | ~2025-08-20 | XR_ITS ---
EXAMINATION: XR shoulder RT min 2V, 08/20/2025 14:05 CDT HISTORY: injury, FELL TODAY COMPARISON: No comparisons available. Findings: No acute fracture or malalignment. Moderate to severe degenerative changes Soft tissues unremarkable. Impression: No acute fracture or malalignment. Reviewed, dictated and finalized at location P. Impression: No acute fracture or malalignment.
[2025-08-20 13:33] VITALS: BP 133/88; PULSE 62; RESP 16; TEMP 36.4; O2SAT 100
--- NOTE | 2025-08-20 14:09 | ED.FALL ---
HPI - Fall General Chief Complaint: Fall Stated Complaint: fall, palomo Time Seen by Provider: 08/20/25 14:09 Source: patient and EMS Mode of arrival: EMS History of Present Illness HPI Narrative: 65 YEARS OLD MALE CAME FROM A FOR CARE BY AMBULANCE COMPLAINING OF HEADACHE AND NECK PAIN AFTER A FALL FROM HIS BED TO THE FLOOR WHILE RECEIVING A BED BATH. HISTORY OF STROKE 2 MONTHS AGO, WITH RIGHT HEMIPLEGIA PATIENT ALSO COMPLAINING OF RIGHT SHOULDER PAIN. AFTER THE FALL. Related Data Home Medications ?Medication ?Instructions ?Recorded ?Confirmed ?Last Taken ?Type B-complex with vitamin C 1 tablet PO DAILY 09/29/24 03/09/25 Unknown History acetaminophen 500 mg capsule 500 mg PO Q6H PRN fever or pain 09/29/24 03/09/25 Unknown History amino acids-protein hydrolysate 15 See Rx Instructions PO BID 09/29/24 03/09/25 Unknown History gram-100 kcal/30 mL oral liquid (Pro-Stat Sugar Free) aspirin 81 mg tablet,delayed 81 mg PO DAILY 09/29/24 03/09/25 Unknown History release cholecalciferol (vitamin D3) 25 25 mcg PO DAILY 09/29/24 03/09/25 Unknown History mcg (1,000 unit) capsule docusate sodium 100 mg capsule 100 mg PO DAILY 09/29/24 03/09/25 Unknown History famotidine 20 mg tablet 20 mg PO DAILY 09/29/24 03/09/25 Unknown History ferrous sulfate 325 mg (65 mg 325 mg PO DAILY 09/29/24 03/09/25 Unknown History iron) tablet fluoxetine 20 mg capsule 20 mg PO DAILY 09/29/24 03/09/25 Unknown History fluvoxamine 50 mg tablet 50 mg PO QHS 09/29/24 03/09/25 Unknown History furosemide 20 mg tablet 20 mg PO QAM 09/29/24 03/09/25 Unknown History insulin glargine 100 unit/mL 10 unit subcut QPM 09/29/24 03/09/25 Unknown History subcutaneous solution levetiracetam 1,000 mg tablet 1,000 mg PO Q12H 09/29/24 03/09/25 Unknown History lorazepam 0.5 mg tablet 0.5 mg PO Q12H 09/29/24 03/09/25 Unknown History naltrexone 50 mg tablet 50 mg PO DAILY 09/29/24 03/09/25 Unknown History sennosides 8.6 mg capsule (senna) 8.6 mg PO BID 09/29/24 03/09/25 Unknown History spironolactone 25 mg tablet 25 mg PO DAILY 09/29/24 03/09/25 Unknown History tamsulosin 0.4 mg capsule 0.4 mg PO DAILY 09/29/24 03/09/25 Unknown History Biotene Dry Mouth Oral spray See Rx Instructions .Route Q2H PRN 01/07/25 03/09/25 Unknown History dry mouth benzocaine 6 mg-menthol 10 mg 1 keith mucous membrane Q4H PRN sore 01/07/25 03/09/25 Unknown History lozenges (Chloraseptic Sore Throat) throat benzonatate 100 mg capsule 100 mg PO TID 01/07/25 03/09/25 Unknown History goodsense gel See Rx Instructions .Route Q6H PRN 01/07/25 03/09/25 Unknown History pain hydroxyzine HCl 25 mg tablet 25 mg PO Q12H PRN anxiety 01/07/25 03/09/25 Unknown History metformin 750 mg tablet,extended 750 mg PO DAILY 01/07/25 03/09/25 Unknown History release 24 hr zinc oxide 10 % topical cream 1 applic topical TID PRN skin 01/07/25 03/09/25 Unknown History (Secura Protective (zinc oxide)) irritation Allergies Allergy/AdvReac Type Severity Reaction Status Date / Time lacosamide (From Vimpat) Allergy Unknown Verified 03/23/25 10:40 Review of Systems Review of Systems: All systems reviewed & are unremarkable except as noted in HPI and below PMFSH Past Medical History Medical History History of benign brain tumor January 2024 found to have a benign brain tumor that was removed Prostate cancer Schizophrenia Depression Anemia Benign prostatic hyperplasia Gastroesophageal reflux disease Hypertension Heart failure of unknown type Cerebrovascular accident Hemorrhage following brain tumor removal with CVA with second surgery Surgical History Surgical History History of insertion of cholecystostomy tube 01/07/25 History of brain surgery January of 2024 Family History Family History Other Unknown family medical history Social History Social History Social History: Surrogate medical decision maker: Jose Suarez, brother. Code status: Full code. Smoking status: Never smoker Alcohol intake: never Substance use: never Substance use type: does not use Current Housing: Decline to Answer Concerned About Future Housing: Decline to Answer Difficulty Paying Gas/Electric Bills: Decline to Answer Difficulty Paying for Meds: Decline to Answer Currently Unemployed: Decline to Answer Education: High School Diploma/GED Difficulty w/ Childcare or Family Care: No Spiritual care concerns: No Exam Narrative: GENERAL APPEARANCE: WELL-DEVELOPED, WELL-NOURISHED, NOT IN PAIN OR DISTRESS SKIN: NORMAL COLOR HEAD: NORMOCEPHALIC, NONTRAUMATIC EYES: CLEAR CONJUNCTIVA ENT: OROPHARYNX NORMAL, EARS NORMAL, NOSE NORMAL NECK: SLIGHT DIFFUSE TENDERNESS POSTERIORLY, C-COLLAR IN PLACE CHEST AND RESPIRATORY: AIRWAY PATENT, NO RESPIRATORY DISTRESS, NO ACCESSORY MUSCLE USE HEART: REGULAR RATE/RHYTHM ABDOMEN: SOFT, NONTENDER, NO ORGANOMEGALY, QUIET BOWEL SOUNDS VASCULAR: NORMAL PERIPHERAL PULSES, NORMAL CAPILLARY REFILL. MUSCULOSKELETAL: LIMITED RANGE OF MOTION OF THE RIGHT UPPER AND RIGHT LOWER EXTREMITY BECAUSE OF STROKE NEUROLOGIC: ALERT AND DISORIENTED TO THE YEAR AND HIS AGE. Course Vital Signs Vital signs: Vital Signs Temperature 36.4 C 08/20/25 13:33 Pulse Rate 62 08/20/25 13:33 Respiratory Rate 16 08/20/25 13:33 Blood Pressure 133/88 08/20/25 13:33 Pulse Oximetry 100 08/20/25 13:33 Oxygen Delivery Room Air 08/20/25 13:33 Temperature 36.4 C 08/20/25 13:33 Pulse Rate 62 08/20/25 13:33 Respiratory Rate 16 08/20/25 13:33 Blood Pressure 133/88 08/20/25 13:33 Pulse Oximetry 100 08/20/25 13:33 Oxygen Delivery Room Air 08/20/25 13:33 MDM - Fall MDM Narrative Medical decision making narrative: PATIENT HAD A FALL OUT OF HIS BED WHILE TAKING A SHOWER. COMPLAINING OF HEAD PAIN, NECK PAIN AND RIGHT SHOULDER PAIN CT HEAD AND CT CERVICAL SPINE WITHOUT CONTRAST SHOWED NO ACUTE ABNORMALITY X-RAY OF THE RIGHT SHOULDER SHOWED NO ACUTE ABNORMALITY Differential Diagnosis Differential diagnosis: Likely dislocation of shoulder region, concussion without loss of consciousness and other Imaging Data Radiologist's impression: Impressions Head CT 08/20/25 14:08 Impression: 1.No acute intracranial abnormality. Cervical Spine CT 08/20/25 14:12 IMPRESSION: 1. No acute findings. Shoulder X-Ray 08/20/25 14:33 Impression: No acute fracture or malalignment. Critical Care Time Critical Care Time Critical Care Time: No Discharge Plan Discharge Clinical Impression: CHI (closed head injury), Neck and shoulder pain Patient Disposition: NH Alf/Asst Living Condition: Stable Instructions: Head Injury (ED), Neck Pain (ED) Additional Instructions: RETURN IF SYMPTOMS ARE WORSENING , CALL YOUR FAMILY PHYSICIAN FOR APPOINTMENT, TAKE TYLENOL NEEDED FOR ACHES AND PAIN, CONTINUE HOME MEDICATIONS. Patient Language: Georgian Prescriptions: No Action lorazepam 0.5 mg tablet 0.5 mg PO Q12H insulin glargine 100 unit/mL solution 10 unit subcut QPM aspirin 81 mg tablet,delayed release (DR/EC) 81 mg PO DAILY B-complex with vitamin C Tablet 1 tablet PO DAILY famotidine 20 mg tablet 20 mg PO DAILY ferrous sulfate 325 mg (65 mg iron) tablet 325 mg PO DAILY fluoxetine 20 mg capsule 20 mg PO DAILY furosemide 20 mg tablet 20 mg PO QAM naltrexone 50 mg tablet 50 mg PO DAILY spironolactone 25 mg tablet 25 mg PO DAILY tamsulosin 0.4 mg capsule 0.4 mg PO DAILY cholecalciferol (vitamin D3) 25 mcg (1,000 unit) capsule 25 mcg PO DAILY docusate sodium 100 mg capsule 100 mg PO DAILY levetiracetam 1,000 mg tablet 1,000 mg PO Q12H Pro-Stat Sugar Free 15-100 gram-kcal/30 mL liquid See Rx Instructions PO BID Rx Instructions: 60 ml orally twice a day; senna 8.6 mg capsule 8.6 mg PO BID fluvoxamine 50 mg tablet 50 mg PO QHS acetaminophen 500 mg capsule 500 mg PO Q6H PRN (Reason: fever or pain) benzonatate 100 mg capsule 100 mg PO TID Chloraseptic Sore Throat 6-10 mg lozenge 1 keith mucous membrane Q4H PRN (Reason: sore throat) goodsense gel See Rx Instructions .ROUTE Q6H PRN (Reason: pain) Rx Instructions: apply to arms and legs every 6 hours PRN; apply to arms,legs; Biotene Dry Mouth Oral spray See Rx Instructions .ROUTE Q2H PRN (Reason: dry mouth) Rx Instructions: 2 spray every 2 hours PRN; 2 spray; Secura Protective (zinc oxide) 10 % cream 1 applic topical TID PRN (Reason: skin irritation) hydroxyzine HCl 25 mg tablet 25 mg PO Q12H PRN (Reason: anxiety) metformin 750 mg tablet extended release 24 hr 750 mg PO DAILY ondansetron 4 mg tablet,disintegrating 4 mg PO Q8H PRN (Reason: nausea and vomiting) Qty: 15 0RF Follow-up/Referrals: PHYSICIAN NOT ON STAFF,NONSTAFF [Primary Care Provider]
--- NOTE | 2025-08-20 14:23 | PC.NURSE ---
This RN was approached by process assistant and was told the patients eyes rolled back in his head while he was talking. This RN entered pts room and noticed an obvious change in pts mental status. Pt was not answering questions appropriately and began snoring mid sentence. EDP Dr. Bran aware and at bedside.
--- NOTE | 2025-08-20 15:34 | PC.NURSE ---
Attempted to call report back to [facility] and was hung up on by the facility after stating I was calling to give report.
--- NOTE | 2025-08-20 15:36 | PC.NURSE ---
[address] Bran stated to this RN pt was answering all questions appropriately.
== END 2025-08-20 16:33 ==
PROVIDERS: Emergency Provider Emergency Medicine
DX: S19.9XXA Unspecified injury of neck, initial encounter (principal); S09.90XA Unspecified injury of head, initial encounter; S49.91XA Unspecified injury of right shoulder and upper arm, initial encounter; I69.351 Hemiplegia and hemiparesis following cerebral infarction affecting right dominant side; I50.9 Heart failure, unspecified; I11.0 Hypertensive heart disease with heart failure; K21.9 Gastro-esophageal reflux disease without esophagitis; N40.0 Benign prostatic hyperplasia without lower urinary tract symptoms; F20.9 Schizophrenia, unspecified; F32.A Depression, unspecified; Z85.46 Personal history of malignant neoplasm of prostate; Z79.4 Long term (current) use of insulin; Z79.899 Other long term (current) drug therapy; Z79.84 Long term (current) use of oral hypoglycemic drugs; Z79.82 Long term (current) use of aspirin; W06.XXXA Fall from bed, initial encounter
CPT/HCPCS: 70450; 72125; 73030; 99284